=== PATIENT | male | born 1935 | race Caucasian/White ===

== ENCOUNTER 2023-11-10 07:04 | Inpatient (IN) | payer MEDICARE, SELFPAY ==
[2023-11-10] VITALS (18 sets, daily range): BP systolic 92–126; BP diastolic 54–65; PULSE 83–118; RESP 14–22; TEMP 36.1–37.1; O2SAT 93–100
--- NOTE | ~2023-11-10 | XR_ITS ---
XR abdomen obstructive series DATE: 11/18/2023 08:04 INDICATION: Ileus TECHNIQUE: Portable supine AP and upright views 11/18/2023 at [id number] hours COMPARISON: November 17, 2023 obstructive series FINDINGS: Prominent gaseous distention of the small bowel and colon is again noted, which may be due to ileus or distal colonic obstruction less likely. No visceromegaly is evident. Multiple prostate calcifications. IMPRESSION: Prominent gaseous distention of small and large bowel which may be due to ileus or obstru ction; no improvement since 11/17/2023 Reviewed, dictated and finalized at [facility]. Reviewed, dictated and finalized at location A. IMPRESSION: Prominent gaseous distention of small and large bowel which may be due to ileus or obstruction; no improvement since 11/17/2023
--- NOTE | ~2023-11-10 | XR_ITS ---
EXAMINATION: XR chest 1V portable DATE: 11/11/2023 19:07 INDICATION: Shortness of breath. TECHNIQUE: A single frontal view of the chest was obtained. COMPARISON: Chest single view 11/10/23 FINDINGS: There are mild airspace opacities in the mid and lower lung zones. No pleural effusion or p neumothorax. The heart size is normal. There are surgical clips in right axilla. IMPRESSION: 1. Mild airspace opacities in the mid and lower lung zones, likely mild pulmonary edema. Reviewed, dictated and finalized at location E. IMPRESSION: 1. Mild airspace opacities in the mid and lower lung zones, likely mild pulmona ry edema.
--- NOTE | ~2023-11-10 | XR_ITS ---
EXAMINATION: XR chest 1V portable 11/10/2023 07:54 INDICATION: Altered mental status. Fever. PROCEDURE: AP portable chest COMPARISON: No prior studies for comparison. FINDINGS: The lungs are clear. The cardiomediastinal silhouette is within normal limits. There are no pleural effusions. There is no pneumothorax suspected. IMPRESSION: 1: NO ACUTE CARDIOPULMONARY DISEASE. Reviewed, dictated and finalized at location A.
--- NOTE | ~2023-11-10 | US_ITS ---
US scrotum doppler INDICATION: Wound. TECHNIQUE: Testicular sonogram utilizing grayscale and color Doppler FINDINGS: The testes are normal in size and appearance. No focal lesions are seen. The right testes measures 4.4 x 3.4 x 1.6 cm centimeters, and the left testis measures 4.2 x 2.7 x 2.4 cm cm. There is normal vascular flow to both testes. The right epididymis is not visualized. Left epididymis is unremarkable. There is a moderate size complicated right hydrocele with internal debris. There is a small left hydr ocele. IMPRESSION: 1. Moderate sized uncomplicated right hydrocele with debris. Superimposed infection cannot be exclud ed. Clinically correlate. 2: Small left hydrocele. Reviewed, dictated and finalized at location B. IMPRESSION: 1. Moderate sized uncomplicated right hydrocele with debris. Superimposed infe ction cannot be excluded. Clinically correlate. 2: Small left hydrocele.
--- NOTE | ~2023-11-10 | XR_ITS ---
XR chest 2V 11/15/2023 09:54 Indication: Hypoxia Procedure: 2 view chest Comparison: 11/11/2023 Findings: Heart size normal. Bibasilar airspace disease. Small pleural effusions. No pneumothorax. No edema. Moderate distention of visualized small bowel, nonspecific. There are surgical clips in the r ight axilla. Impression: 1: Bibasilar airspace disease may represent atelectasis or pneumonia. 2: Small pleural effusions. Reviewed, dictated and finalized at location B. Impression: 1: Bibasilar airspace disease may represent atelectasis or pneumonia. 2: Small pleural effusions.
--- NOTE | ~2023-11-10 | US_ITS ---
EXAMINATION: US scrotum doppler DATE: 11/11/2023 14:00 INDICATION: Scrotal abscess with drainage. TECHNIQUE: Grayscale and Doppler ultrasound images of the testes were obtained. COMPARISON: CT abdomen pelvis/ FINDINGS: The right testis is not well visualized. The left testis measures 4.0 x 1.8 x 2.3 cm. There is increased vascular flow in left testis. The right epididymis is not visualized. The left epididym is is not visualized. There is a small left hydrocele. In the right scrotum, there is a hypoechoic ma ss measuring 5.9 cm. Scrotal skin thickening is noted. IMPRESSION: 1. 5.9 cm hypoechoic mass in right scrotum, which may be an abscess or hematoma. 2. Right testis not well visualized. 3. Left-sided orchitis. 4. Epididymides not well visualized. Reviewed, dictated and finalized at location E. IMPRESSION: 1. 5.9 cm hypoechoic mass in right scrotum, which may be an abscess or hematom a. 2. Right testis not well visualized. 3. Left-sided orchitis. 4. Epididymides not well visualized.
--- NOTE | ~2023-11-10 | CT_ITS ---
EXAMINATION: CT abdomen pelvis w con DATE: 11/10/2023 08:50 INDICATION: Fever. Sepsis. TECHNIQUE: Computed tomography (CT) of the abdomen and pelvis was performed with 100 cc Omnipaque 350 intravenous contrast. The dose-length product was 849.40 mGy-cm. Automated exposure control and iter ative reconstruction technique were employed. COMPARISON: None. FINDINGS: There is dependent atelectasis of the lung bases. Small pericardial effusion. No significan t pleural effusion. Mild atherosclerosis. No aneurysm. No lymphadenopathy. Enlarged heterogeneous pro state gland containing coarse calcifications. Diffuse bladder wall thickening. There are coarse calcifications of the liver. There is a hypervascular lesion of the right hepatic lo be measuring 3.1 x 2.3 cm. Gallbladder is present. The spleen, pancreas, adrenal glands are unremarka ble. There are small low-density lesions of the kidneys, most likely benign. Moderate osteoarthritis of the hips moderate lumbar spondylosis. There is partial ankylosis of the sacroiliac joints. IMPRESSION: 1. Diffusely enlarged heterogeneous prostate gland. Cannot exclude underlying malignancy. Recommend c orrelation with PSA levels. 2: Thickened bladder wall which may be due to outlet obstruction and/or cystitis. 3: Hypervascular lesion of the right hepatic lobe measuring 3.1 cm. Differential diagnosis includes b enign etiologies such as hemangioma as well as primary and metastatic malignancy. 3: Small pericardial effusion. Reviewed, dictated and finalized at location A. IMPRESSION: 1. Diffusely enlarged heterogeneous prostate gland. Cannot exclude underlying m alignancy. Recommend correlation with PSA levels. 2: Thickened bladder wall which may be due to outlet obstruction and/or cystiti s. 3: Hypervascular lesion of the right hepatic lobe measuring 3.1 cm. Differentia l diagnosis includes benign etiologies such as hemangioma as well as primary an d metastatic malignancy. 3: Small pericardial effusion.
--- NOTE | ~2023-11-10 | XR_ITS ---
EXAM: XR abdomen obstructive series DATE: 11/17/2023 09:05 HISTORY: ileus . COMPARISON: 11/16/2023. FINDINGS: Minimal bibasilar atelectasis/scar. Mild bilateral costophrenic blunting. Unchanged diffus yaa dilated small and large bowel. Organ shadows are largely obscured. Prostatic calcification and pe lvic phleboliths. Degenerative changes in the spine and bilateral hips IMPRESSION: Stable findings of dilated small and large bowel may represent ileus. Obstruction is not excluded. Reviewed, dictated and finalized at location K. IMPRESSION: Stable findings of dilated small and large bowel may represent ileu s. Obstruction is not excluded.
--- NOTE | ~2023-11-10 | XR_ITS ---
EXAMINATION: XR abdomen obstructive series DATE: 11/16/2023 12:44 INDICATION: Abdominal distention. TECHNIQUE: Upright and supine views of the abdomen on 3 radiographs were obtained. COMPARISON: CT abdomen and pelvis 11/10/2023 FINDINGS: There is gaseous distention of the small and large bowel. No free intraperitoneal gas. IMPRESSION: 1. Gaseous distention of the small and large bowel, consistent with adynamic ileus. Reviewed, dictated and finalized at location A. IMPRESSION: 1. Gaseous distention of the small and large bowel, consistent with adynamic il eus.
--- NOTE | 2023-11-10 07:11 | ECG_ITS ---
SEE SCANNED COPY FOR CONFIRMED REPORT MTDD
--- NOTE | 2023-11-10 07:14 | ED.AMS ---
HPI - Altered Mental Status General Chief Complaint: Weakness Stated Complaint: weak/confused History of Present Illness HPI narrative: Patient presents here with 1 week of worsening generalized weakness, malaise, fevers, today was unable to get up, and initially seemed quite confused, so was brought in here. He does report maybe a slight cough, otherwise and denies any pain anywhere including abdomen, chest, head, no dysuria. No focal numbness or weakness. Related Data Home Medications Medication Instructions Recorded Confirmed empagliflozin 10 mg tablet mg DAILY 11/10/23 (Jardiance) lisinopril 10 1 tablet PO DAILY 11/10/23 11/10/23 mg-hydrochlorothiazide 12.5 mg tablet metformin 1,000 mg tablet 1,000 mg PO DAILY 11/10/23 11/10/23 naproxen sodium 375 mg mg PO BID 11/10/23 tablet,extended release Allergies Allergy/AdvReac Type Severity Reaction Status Date / Time gabapentin Allergy Numbness Verified 11/10/23 07:46 Review of Systems Review of Systems: All systems reviewed & are unremarkable except as noted in HPI and below Exam Narrative: EXAMINATION OF ORGAN SYSTEMS/BODY AREAS: Constitutional: Vital signs per nursing GENERAL:[No acute distress, non-toxic appearing.] HEAD: Normal with no signs of head trauma. EYES: EOMI, conjunctiva normal ENT: Hearing grossly intact LUNGS: Nonlabored breathing. HEART: Tachycardiac ABD: [Soft], [nontender to palpation] EXT: Normal range of motion SKIN: Small pinpoint lesion to scrotum with some thickened skin over scrotum, no tenderness, some serosanguineous discharge NEURO: [Alert and oriented x 3. No gross focal sensory or strength deficits. Normal/equal strength bilateral upper lower extremities] PSYCH: Normal affect Course Vital Signs Vital signs: Vital Signs Pulse Rate 118 H 11/10/23 07:16 Respiratory Rate 11/10/23 07:16 Blood Pressure 124/63 11/10/23 07:16 Pulse Oximetry 93 11/10/23 07:16 Temperature 98.6 F 11/10/23 07:21 Pulse Rate 114 H 11/10/23 07:21 Respiratory Rate 20 11/10/23 07:21 Blood Pressure 113/59 L 11/10/23 07:21 Pulse Oximetry 96 11/10/23 07:21 Oxygen Delivery Room Air 11/10/23 07:21 MDM - Altered Mental Status MDM Narrative Medical decision making narrative: Patient presenting here with generalized weakness, possible fevers, concern for infection. He is denying any complaints other than a mild cough. On exam he is but overall well-appearing albeit does appear tired, no focal neurologic deficits, no abdominal tenderness, some mild crackles worse to right lung, there is a small pinpoint lesion with some thickened skin and surrounding to scrotum which patient states has been ongoing for years, he had several months ago squeezed a boil there and since and did drain some fluid but not painful. Broad workup initiated, I suspect possible infection, very unlikely CVA with no focal lateralizing deficits. CT abdomen/pelvis showing cystitis, labs consistent with UTI with sepsis, elevated lactic, delete BC, CRP. Patient started on ceftriaxone, no prior cultures here. Patient states he is feeling better after some fluids, BP vital signs much improved, plan for patient to be admitted at this time, case discussed with the patient and family bedside who are agreeable to this plan, discussed with hospitalist who accepts. Lab Data 11/10/23 07:23 11/10/23 07:23 Labs: Lab Results 11/10/23 11/10/23 Range/Units 07:23 09:22 WBC 13.4 H (4.5-10.0) K/mm3 RBC 4.29 L (4.6-6.20) M/mm3 Hgb 11.7 L (14.0-18.0) g/dL Hct 37.0 L (42.0-52.0) % MCV 86.2 (80-100) fl MCH 27.3 (26-34) pg MCHC 31.6 L (32-36) g/dl RDW 15.3 H (11.5-14.5) % Plt Count 257 (150-375) k/mm3 MPV 11.8 H (7.4-10.4) fl Immature Gran % (Auto) 1.0 H (0-0.5) % Neut % (Auto) 92.8 H (45.5-73.1) % Lymph % (Auto) 2.3 L (18.3-44.2) % [place] % (Auto) 3.1 (2.6-8.
[2023-11-10 07:53] LABS: Basophils Absolute Auto 0.1 K/mm3 (0.0-0.1); Basophils Percent Auto 0.7 % (0.2-1.2); Eosinophils Percent Auto 0.1 % (0-4.4); Hemoglobin 11.7 g/dL (14.0-18.0); Immature Granulocyte Absolute 0.13 K/mm3 (0.00-0.031); Lymphocytes Absolute Auto 0.31 K/mm3 (0.9-3.2); Lymphocytes Percent Auto 2.3 % (18.3-44.2); Mean Corpuscular HGB Conc 31.6 g/dl (32-36); Mean Corpuscular Hemoglobin 27.3 pg (26-34); Mean Corpuscular Volume 86.2 fl (80-100); Mean Platelet Volume 11.8 fl (7.4-10.4); Monocytes Absolute Auto 0.4 K/mm3 (0.1-0.6); Monocytes Percent Auto 3.1 % (2.6-8.5); Neutrophils Absolute Auto 12.5 K/mm3 (1.3-6.7); Neutrophils Percent Auto 92.8 % (45.5-73.1); Platelet Count Result 257 k/mm3 (150-375); Red Blood Count 4.29 M/mm3 (4.6-6.20); Red Cell Distribution Width 15.3 % (11.5-14.5); White Blood Count 13.4 K/mm3 (4.5-10.0)
[2023-11-10 08:06] LABS: INR 1.2
[2023-11-10 08:07] LABS: Lactic Acid Reflex 6.6 mmol/L (0.7-2.0)
[2023-11-10 08:10] LABS: Alanine Aminotransferase 36 U/L (6-50); Albumin Level 3.5 g/dL (3.5-5.1); Alkaline Phosphatase 178 U/L (38-126); Anion Gap 15 mmol/L (4-12); Aspartate Amino Transferase 62 U/L (17-59); Bilirubin,Total 1.1 mg/dL (0.2-1.3); Blood Urea Nitrogen 31 mg/dL (9-20); Carbon Dioxide 15 mmol/L (22-30); Chloride 102 mmol/L (98-107); Estimated CRCL calculation 39 ml/min; Estimated Glomerular Filt Rate 57; Glucose 282 mg/dL (65-110); Potassium 3.8 mmol/L (3.4-5.0); Sodium 132 mmol/L (137-145)
[2023-11-10 08:13] LABS: Appearance Urine Cloudy (Clear); Bacteria Urine 2+ /hpf; Bilirubin Urine Negative (Negative); Blood Urine 3+ (Negative); Color Urine Yellow (Yellow); Glucose Urine UA 3+ mg/dL (Negative); Ketones Urine 1+ mg/dL (Negative); Leukocyte Esterase Ur 1+ LEU/UL (Negative); Need Manual Microscopic Reviewed; Nitrate Urine Negative (Negative); Protein Urine 2+ mg/dL (Negative); RBC Urine >100 /hpf (0-2); Specific Grav Ur 1.027 (1.001-1.035); Squamous Epithelial Cell Urine None Seen /hpf (Few); WBC Urine >100 /hpf (0-3); pH Urine 6.5 (5.0-9.0)
[2023-11-10 08:19] LABS: Add Urine Microscopic? YES
[2023-11-10 08:22] LABS: CRP 25.3 mg/dL (<1.0)
[2023-11-10] MEDS: LACTATED RINGERS 1,000 ML 999 ML IV CONT (08:28)
[2023-11-10 09:37] LABS: Lactic Acid Reflex 3.8 mmol/L (0.7-2.0)
[2023-11-10] MEDS: LACTATED RINGERS 500 ML IV CONT ×2 (09:37→12:21)
[2023-11-10] MEDS: VANCOMYCIN 1,500 MG/NS 500 ML 1,500 MG/500 ML BAG 333 MG IVPB (09:38)
[2023-11-10 10:50] LABS: Reflex Lactic Acid Yes or No Add Lactic
[2023-11-10] MEDS: LACTATED RINGERS 1,000 ML 125 ML IV CONT ×3 (10:52→23:32)
--- NOTE | 2023-11-10 11:45 | PM.IMHP ---
H&P: HPI History of Present Illness Date/Time: 11/10/23 11:45 Chief Complaint: Confusion weakness fever Narrative: Patient presents here with 1 week of worsening generalized weakness, malaise, fevers, today was unable to get up, and initially seemed quite confused, so was brought in here.? He does report maybe a slight cough, otherwise and denies any pain anywhere including abdomen, chest, head, no dysuria.? No focal numbness or weakness. Review of Systems Review of Systems: - CONSTITUTIONAL: Denies weight loss, fever and chills. - HEENT: Denies changes in vision and hearing - RESPIRATORY: Denies SOB and cough. - CV: Denies palpitations and CP. - GI: Denies abdominal pain, nausea, vomiting and diarrhea. - : Denies dysuria and urinary frequency. - MSK: Denies myalgia and joint pain. - SKIN: Denies rash and pruritus. - NEUROLOGICAL: Denies headache and syncope. - PSYCHIATRIC: Denies recent changes in mood. Denies anxiety and depression. [facility] Family History Family History (Updated 11/10/23 @ 12:20 by Theo Pratt RN) Father Prostate carcinoma Sibling Diabetes mellitus Social History Social History Smoking status: Former smoker Tobacco type: cigarettes Second hand tobacco smoke exposure: No Additional smoking assessment comments: Pt smoked when he was 16 years old off and on Meds Home Medications and Allergies Home Medications Medication Instructions Recorded Confirmed Type empagliflozin 10 mg tablet mg DAILY 11/10/23 History (Jardiance) lisinopril 10 1 tablet PO DAILY 11/10/23 11/10/23 History mg-hydrochlorothiazide 12.5 mg tablet metformin 1,000 mg tablet 1,000 mg PO DAILY 11/10/23 11/10/23 History naproxen sodium 375 mg mg PO BID 11/10/23 History tablet,extended release Allergies Allergy/AdvReac Type Severity Reaction Status Date / Time gabapentin Allergy Numbness Verified 11/10/23 07:46 Vital Signs Vital Signs - 24 hr 11/10/23 07:21 11/10/23 07:16 11/10/23 07:17 Temperature 98.6 F 98.4 F Pulse Rate 114 H 118 H 105 H Respiratory Rate 20 20 22 H Blood Pressure 113/59 L 124/63 98/55 L Pulse Oximetry 96 93 94 Oxygen Delivery Room Air 11/10/23 08:00 04/20/24 09:00 11/10/23 10:00 Temperature 98.0 F 97.9 F 97.6 F Pulse Rate 109 H 105 H 101 H Respiratory Rate 16 14 14 Blood Pressure 102/56 L 98/55 L 105/62 Pulse Oximetry 94 100 100 Oxygen Delivery Exam Narrative: GENERAL: The patient is well developed, not in acute distress HEENT: Nonicteric sclerae, PERRLA, EOMI. Oropharynx clear. Moist mucous membranes. Conjunctivae appear well perfused. CHEST: Chest wall is nontender. HEART: Regular rate and rhythm without murmur, rubs, or gallops LUNGS: Clear to auscultation bilaterally. no respiratory distress ABDOMEN: Soft, positive bowel sounds, non-tender, no organomegaly. SKIN: No rash, no excessive bruising, petechiae, or purpura. NEUROLOGIC: Cranial nerves II-XII intact, alert and oriented x 3, no gross motor deficits EXTREMITIES: no edema, cyanosis or clubbing H&P: Results Labs Labs: Short CBC 11/10/23 Range/Units 07:23 WBC 13.4 H (4.5-10.0) K/mm3 Hgb 11.7 L (14.0-18.0) g/dL Hct 37.0 L (42.0-52.0) % Plt Count 257 (150-375) k/mm3 BMP 11/10/23 07:23 Sodium 132 L Potassium 3.8 Chloride 102 Carbon Dioxide 15 L BUN 31 H Creatinine 1.20 Glucose 282 H Calcium 9.0 Liver Function 11/10/23 Range/Units 07:23 Total Bilirubin 1.1 (0.2-1.3) mg/dL AST 62 H (17-59) U/L ALT 36 (6-50) U/L Alkaline Phosphatase 178 H (38-126) U/L Albumin 3.5 (3.5-5.1) g/dL Urine 11/10/23 Range/Units 07:23 Urine Color Yellow (Yellow) Urine Appearance Cloudy H (Clear) Urine pH 6.5 (5.0-9.0) Ur Specific [place] 1.027 (1.001-1.035) Urine Protein 2+ H (Negative) mg/dL Urine Glucose (UA) 3+ H (Negative) mg/dL Assessment and Plan Assessment and
[2023-11-10 12:12] LABS: Glucose Point of Care 266 mg/dl (65-105)
--- NOTE | 2023-11-10 12:12 | ADMGEN ---
This patient, Sadiq Bennett, was admitted to IMU Room 205-01. Patient/family oriented to hospital policies and general routines including ID bracelet, bed and alarms, visiting hours, pain management, procedures, bathroom and other care routines, personal items, smoking policy, room service/diet, and visiting hours. Information on how to activate the Rapid Response Team has been discussed. Patient/Family are encouraged to report perceived risks to care and to ask questions if they do not understand what they are told or what they should do.
[2023-11-10 12:57] LABS: Lactic Acid 2.5 mmol/L (0.7-2.0)
--- NOTE | 2023-11-10 13:04 | PC.NURSE ---
Dr. Bright given report that the pt is reporting he is a diabetic. Blood glucose obtained at the bedside et the pt was 266mg/dL. Denies manifestations of distress. T.O.R.B. Dr. Bright/ Selene RN 1. Diabetic diet. Per Dr. Bright will review the chart et make any further changes needed.
[2023-11-10 14:38] LABS: Hemoglobin A1C 8.4 % (<5.7)
[2023-11-10 16:11] LABS: Glucose Point of Care 268 mg/dl (65-105)
[2023-11-10] MEDS: INSULIN ASPART (*BKC) 100 UNITS/ML SUB-Q (16:44)
--- NOTE | 2023-11-10 18:28 | PC.NURSE ---
Dr. Patton has been given report on the pt fever of 100.1. No PRN intervention for fever if needed. T.O.R.B. Dr. Patton / This RN 1.) Acetaminophen 650mg PO Q6 PRN fever mild pain.
[2023-11-10 20:14] LABS: Glucose Point of Care 247 mg/dl (65-105)
[2023-11-11] VITALS (19 sets, daily range): BP systolic 117–134; BP diastolic 54–74; PULSE 72–109; RESP 12–28; TEMP 36.3–36.9; O2SAT 88–98
[2023-11-11 04:50] LABS: Basophils Percent Auto 0.3 % (0.2-1.2); Eosinophils Percent Auto 0.2 % (0-4.4); Hematocrit 32.3 % (42.0-52.0); Hemoglobin 10.2 g/dL (14.0-18.0); Immature Granulocyte Absolute 0.09 K/mm3 (0.00-0.031); Immature Granulocyte Percent A 0.7 % (0-0.5); Lymphocytes Percent Auto 5.9 % (18.3-44.2); Mean Corpuscular HGB Conc 31.6 g/dl (32-36); Mean Corpuscular Volume 85.4 fl (80-100); Monocytes Percent Auto 7.3 % (2.6-8.5); Neutrophils Absolute Auto 11.6 K/mm3 (1.3-6.7); Neutrophils Percent Auto 85.6 % (45.5-73.1); Platelet Count Result 254 k/mm3 (150-375); Red Blood Count 3.78 M/mm3 (4.6-6.20); Red Cell Distribution Width 14.8 % (11.5-14.5); White Blood Count 13.6 K/mm3 (4.5-10.0)
[2023-11-11 05:00] LABS: Alanine Aminotransferase 32 U/L (6-50); Albumin Level 2.8 g/dL (3.5-5.1); Alkaline Phosphatase 132 U/L (38-126); Anion Gap 6 mmol/L (4-12); Aspartate Amino Transferase 47 U/L (17-59); Bilirubin,Total 0.9 mg/dL (0.2-1.3); Blood Urea Nitrogen 25 mg/dL (9-20); Calcium 8.3 mg/dL (8.4-10.2); Carbon Dioxide 24 mmol/L (22-30); Chloride 104 mmol/L (98-107); Estimated CRCL calculation 47 ml/min; Estimated Glomerular Filt Rate > 60; Glucose 219 mg/dL (65-110); Magnesium 2.1 mg/dL (1.6-2.3); Potassium 3.7 mmol/L (3.4-5.0); Sodium 134 mmol/L (137-145)
[2023-11-11 07:32] LABS: Glucose Point of Care 212 mg/dl (65-105)
[2023-11-11] MEDS: LACTATED RINGERS 1,000 ML 125 ML IV CONT (09:05)
[2023-11-11] MEDS: INSULIN ASPART (*BKC) 100 UNITS/ML SUB-Q ×3 (09:07→17:32)
[2023-11-11] MEDS: ENOXAPARIN 40 MG/0.4 ML SYRINGE SUB-Q (09:08)
[2023-11-11] MEDS: VANCOMYCIN 1,250 MG/NS 250 ML 1,250 MG/250 ML BAG 166.67 MG IVPB (09:48)
--- NOTE | 2023-11-11 10:15 | PM.IMPN ---
Progress Note: A&P Assessment and Plan (1) Sepsis: Code(s): A41.9 - Sepsis, unspecified organism Status: Acute (2) Acute UTI: Code(s): N39.0 - Urinary tract infection, site not specified Status: Acute Plan This is an 88-year-old male who presented to the ED with generalized weakness possible fever concern for infection and altered mental status. He also reported some mild cough. On ED arrival he was tachycardic blood pressure optimal no hypoxia overall with no focal neurological deficit. Right lung examination with mild crackles. Pinpoint lesion on thickened skin around his scrotum which has been ongoing for several years. This Has been draining for some time. Wound culture obtained from this area. He laboratory evaluation revealed leukocytosis 13.4 hemoglobin 11.7 metabolic acidosis with bicarb 15 blood sugar of 282 lactic acid was elevated at 6.6 CRP 25.3 LFTs mildly elevated. Chest x-ray with no acute cardiopulmonary disease. Urinalysis was suggestive of UTI with more than 100 RBC and more than 100 WBC. EKG showed sinus tachycardia with multiple PVC. No acute ST-T changes noted. Presentation suggestive of sepsis most likely with UTI IV fluid resuscitation received in the ER will continue with IV fluids lactic acid continues to improve. Blood culture has been obtained stent positive for Gram-negative bacilli. Will repeat blood culture in a.m. Urine culture has been sent. Continue with vancomycin and ceftriaxone. 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 bp improved. on 2l oxygen. more awake and coherent. blood culture positive now. no fever, chills. Review of Systems Review of Systems: All systems reviewed & are unremarkable except as noted in HPI and below Exam Narrative: GENERAL: The patient is well developed, not in acute distress HEENT: Nonicteric sclerae, PERRLA, EOMI. Oropharynx clear. Moist mucous membranes. Conjunctivae appear well perfused. CHEST: Chest wall is nontender. HEART: Regular rate and rhythm without murmur, rubs, or gallops LUNGS: Clear to auscultation bilaterally. no respiratory distress ABDOMEN: Soft, positive bowel sounds, non-tender, no organomegaly. SKIN: No rash, no excessive bruising, petechiae, or purpura. NEUROLOGIC: Cranial nerves II-XII intact, alert and oriented x 3, no gross motor deficits EXTREMITIES: no edema, cyanosis or clubbing Objective Data Vital Signs Vital Signs: Vital Signs - 24 hr 11/10/23 12:34 11/10/23 12:00 11/10/23 14:00 Temperature 97 F L Pulse Rate 87 89 88 Respiratory Rate 18 Blood Pressure 92/54 L Pulse Oximetry 96 Oxygen Delivery Oxygen Flow Rate 11/10/23 12:00 11/10/23 16:00 11/10/23 18:42 Temperature 97.3 F L 98.1 F Pulse Rate 83 Respiratory Rate 16 Blood Pressure 108/61 Pulse Oximetry 96 Oxygen Delivery Room Air Oxygen Flow Rate 11/10/23 16:00 11/10/23 16:00 11/10/23 18:00 Temperature Pulse Rate 84 89 Respiratory Rate Blood Pressure Pulse Oximetry Oxygen Delivery Room Air Oxygen Flow Rate 11/10/23 19:55 11/10/23 20:00 11/10/23 20:25 Temperature 98.7 F Pulse Rate 100 100 Respiratory Rate 20 Blood Pressure 126/65 Pulse Oximetry 96 96 Oxygen Delivery Nasal Cannula Oxygen Flow Rate 2 11/10/23 22:00 11/10/23 23:43 11/11/23 00:00 Temperature 98.0 F Pulse Rate 96 100 Respiratory Rate 20 Blood Pressure 119/54 L Pulse Oximetry 98 98 Oxygen Delivery Room Air Oxygen Flow Rate 11/11/23 00:00 11/11/23 02:00 11/10/23 21:54 Temperature Pulse Rate 94 94 Respiratory Rate Blood Pressure Pulse Oximetry 98 Oxygen [employer]
--- NOTE | 2023-11-11 11:40 | PCCCNOTE ---
On 11/11/23, the student, Mamie Garces, provided care and completed [facility] documentation on this patient. I have reviewed the student's documentation and agree with the findings.
[2023-11-11 14:29] LABS: Glucose Point of Care 237 mg/dl (65-105)
[2023-11-11 16:44] LABS: Glucose Point of Care 233 mg/dl (65-105)
[2023-11-11 18:35] LABS: Glucose Point of Care 254 mg/dl (65-105)
--- NOTE | 2023-11-11 19:00 | WPDURCON ---
Assessment and Plan Assessment and plan (1) Sepsis: Code(s): A41.9 - Sepsis, unspecified organism Status: Acute (2) Acute UTI: Code(s): N39.0 - Urinary tract infection, site not specified Status: Acute Assessment and Plan: agree with emperric broad spectrum abx no signs of fourniers gangrene on exam his abscess is open and spontaneously draining scant fluid. NPO at midnight. serial scrotal exams if scrotum worsens may benefit form scrotal exploration and formal drainage, but this point would just continue present care. I suspect he has a chronic hydrocele n the right , ( he states this has been present for 1 year) although he may have infection involving it at the moment (3) Hydrocele in adult: Code(s): N43.3 - Hydrocele, unspecified Status: Acute Urology Consult Note HPI Date Seen: 11/11/23 Requesting Physician: Robert Bright MD Primary Care Provider: PHYSICIAN NOT ON STAFF Consult Narrative Narrative: Sadiq Bennett is a 88 year old male admitted for UTI and bactermia. Patient is a known diabetic. He states he has had scrotal swelling x 1 year since he started gabapentin. He noticed a pimple on his scrotum 3 days ago and he states he popped it himself. he has had scant purulent drainage ever since. He states he has a history of gross hematuria intermitently x 1 year. He states his urine is clear now. he can not recall ever seeing a urologist. He is using a purewick device right now. unclear if he has a family hx of prostate malignancy or stone disease. He is currently eating dinner Review of Systems Review of Systems: All systems reviewed & are unremarkable except as noted in HPI and below Constitutional: Constitutional: Reports as per HPI, Reports no additional constitutional complaints, Denies difficulty sleeping and Denies excessive sweating Eyes: Eyes: Reports as per HPI and Reports no additional eye complaints ENT: Reports system reviewed and no additional complaints, except as documented and Reports Normal hearing present Cardiovascular: Cardiovascular: Reports no additional cardiovascular complaints Respiratory: Respiratory: Reports no additional respiratory complaints Gastrointestinal: Gastrointestinal: Reports as per HPI and Reports no additional gastrointestinal complaints Genitourinary: Genitourinary: Reports no additional male genitourinary complaints and Reports as per HPI Musculoskeletal: Musculoskeletal: Reports no additional musculoskeletal complaints Integumentary/Breasts: Skin/Breast: Reports system reviewed and no additional complaints, except as docu Neurologic: Reports system reviewed and no additional complaints, except as documented Psychiatric: Psychiatric: Reports no additional psychiatric complaints Endocrine: Endocrine: Reports no additional endocrine complaints Hematologic/Lymphatic: Hematologic/Lymphatic: Reports no additional hematologic/lymphatic complaints PMFSH Family History Family History (Updated 11/10/23 @ 12:20 by Theo Pratt RN) Father Prostate carcinoma Sibling Diabetes mellitus Social History Social History Smoking status: Former smoker Tobacco type: cigarettes Second hand tobacco smoke exposure: No Additional smoking assessment comments: Pt smoked when he was 16 years old off and on Alcohol intake: never Substance use: never Substance use type: does not use Do You Feel Safe in your Home?: Yes Lack of Transportation: No Lack of Food: Never True Current Housing: I Have Housing Concerned About Future Housing: No Difficulty Paying Gas/Electric Bills: No Difficulty Paying for Meds: No Currently Unemployed: No Education: Don't Know Difficulty w/ Childcare or Family Care: No Spiritual care concerns: No Meds Home Medications and Allergies Home Medications Medication Instructions Recorded Confirmed Type empagliflozin 10 mg tablet 10 mg
--- NOTE | 2023-11-11 19:04 | PC.NURSE ---
Dr. Bright has been given report that has O2 N/C 3L SPO2 88%. New interventions per Dr. Bright SPO2 96% O2 3L, LCTA et remains unchanged
[2023-11-11 19:39] LABS: Glucose Point of Care 256 mg/dl (65-105)
[2023-11-11] MEDS: IPRATROPIUM 0.5 MG/ALBUTEROL SULFATE 2.5 MG AMPUL.NEB 3 ML INHALATION (19:53)
[2023-11-11] MEDS: FUROSEMIDE INJ 40 MG/4 ML VIAL IV PUSH (21:01)
[2023-11-12] VITALS (27 sets, daily range): BP systolic 115–148; BP diastolic 63–82; PULSE 77–97; RESP 18–24; TEMP 36.2–36.9; O2SAT 92–97; BMI 26.4
[2023-11-12] MEDS: IPRATROPIUM 0.5 MG/ALBUTEROL SULFATE 2.5 MG AMPUL.NEB 3 ML INHALATION ×4 (01:15→20:02)
--- NOTE | 2023-11-12 07:32 | WPDUROPN2 ---
Progress Note: A&P Assessment and Plan (1) Hydrocele in adult: Code(s): N43.3 - Hydrocele, unspecified Status: Acute Plan Chronic right hydrocele. Possible subclinical infection. No overlying skin erythema. Does not have an acute scrotum. Unclear if surgical intervention would improve things or make it worse. No intervention planned currently. Will reassess. Continue antibiotics Subjective Subjective Date/Time Seen: 11/12/23 07:32 Interval history: No fever. No complaints today. I reviewed the report of his CT scan and ultrasound. He appears to have a chronic right hydrocele which may have a subclinical infection. Urine cultures negative. Blood culture is positive for Gram-negative rods. Scrotum is not erythematous and has a open and draining component Exam Narrative: Scrotum not erythematous. Right hemiscrotum is firm. On the midline raphe there is an open area which is draining a scant amount of purulent fluid. Objective Data Vital Signs Vital Signs: Vital Signs - 24 hr 11/11/23 08:00 11/11/23 08:05 11/11/23 08:00 Temperature 98.4 F Pulse Rate 82 81 Respiratory Rate 12 Blood Pressure 125/66 Pulse Oximetry 91 90 Oxygen Delivery Nasal Cannula Oxygen Flow Rate 3 11/11/23 10:00 11/11/23 12:00 11/11/23 12:00 Temperature 97.3 F L Pulse Rate 79 72 80 Respiratory Rate 20 Blood Pressure 117/54 L Pulse Oximetry 94 Oxygen Delivery Oxygen Flow Rate 11/11/23 08:00 11/11/23 12:00 11/11/23 16:00 Temperature Pulse Rate Respiratory Rate Blood Pressure Pulse Oximetry 93 94 94 Oxygen Delivery Nasal Cannula Nasal Cannula Nasal Cannula Oxygen Flow Rate 3 3 3 11/11/23 14:00 11/11/23 16:00 11/11/23 16:00 Temperature 97.4 F L Pulse Rate 80 80 83 Respiratory Rate 28 H Blood Pressure 134/74 Pulse Oximetry 92 Oxygen Delivery Oxygen Flow Rate 11/11/23 18:00 11/11/23 19:56 11/11/23 19:59 Temperature Pulse Rate 84 86 Respiratory Rate 19 Blood Pressure Pulse Oximetry 91 Oxygen Delivery Nasal Cannula Oxygen Flow Rate 3 11/11/23 19:54 11/11/23 20:04 11/11/23 20:00 Temperature 97.6 F Pulse Rate 109 H 85 83 Respiratory Rate 20 19 Blood Pressure 123/62 Pulse Oximetry 94 Oxygen Delivery Oxygen Flow Rate 11/11/23 20:00 11/11/23 22:00 11/11/23 23:21 Temperature 97.6 F Pulse Rate 83 81 Respiratory Rate 20 Blood Pressure 126/60 Pulse Oximetry 88 L 94 Oxygen Delivery Nasal Cannula Oxygen Flow Rate 3 11/12/23 01:15 11/12/23 01:29 11/12/23 00:00 Temperature Pulse Rate 86 93 84 Respiratory Rate 19 19 Blood Pressure Pulse Oximetry Oxygen Delivery Oxygen Flow Rate 11/12/23 00:00 11/12/23 02:00 11/12/23 04:00 Temperature Pulse Rate 85 Respiratory Rate Blood Pressure Pulse Oximetry 93 92 Oxygen Delivery Nasal Cannula Nasal Cannula Oxygen Flow Rate 4 4 11/12/23 04:00 11/12/23 04:15 11/12/23 06:00 Temperature 98.4 F Pulse Rate 97 79 86 Respiratory Rate 24 H Blood Pressure 133/82 Pulse Oximetry 96 Oxygen Delivery Oxygen Flow Rate 11/12/23 07:10 11/12/23 07:19 11/12/23 07:28 Temperature Pulse Rate 87 92 Respiratory Rate 20 20 Blood Pressure Pulse Oximetry 93 Oxygen Delivery Nasal Cannula Oxygen Flow Rate 3 Intake/Output Intake/Output: Intake & Output 11/09/23 11/10/23 11/11/23 11/12/23 23:59 23:59 23:59 23:59 Intake Total 3983.3 2320 200 Output Total 1500 850 700 Balance 2483.3 1470 -500 Meds/Results Medications: Active Medications Generic Name Dose Route Start Last Admin Trade Name Clinton PRN Reason Stop Dose Admin Acetaminophen 650 mg 11/10/23 18:27 Acetaminophen 325 Mg Tablet PO Q6H PRN Mild Pain (1-3) or Fever Albuterol/Ipratropium 3 ml 11/11/23 20:00 11/12/23 07:18 Ipratropium 0.5 Mg/Albuterol Sulfate 2.5 Mg Ampul.Neb 3 Ml INHALATION 3 ml
[2023-11-12 08:22] LABS: Alanine Aminotransferase 34 U/L (6-50); Albumin Level 3.1 g/dL (3.5-5.1); Alkaline Phosphatase 147 U/L (38-126); Anion Gap 7 mmol/L (4-12); Aspartate Amino Transferase 43 U/L (17-59); Blood Urea Nitrogen 19 mg/dL (9-20); Calcium 8.1 mg/dL (8.4-10.2); Carbon Dioxide 27 mmol/L (22-30); Chloride 100 mmol/L (98-107); Estimated CRCL calculation 52 ml/min; Estimated Glomerular Filt Rate > 60; Glucose 245 mg/dL (65-110); Potassium 3.5 mmol/L (3.4-5.0); Sodium 134 mmol/L (137-145)
--- NOTE | 2023-11-12 08:24 | PM.IMPN ---
Progress Note: A&P Assessment and Plan (1) Sepsis: Code(s): A41.9 - Sepsis, unspecified organism Status: Acute (2) Acute UTI: Code(s): N39.0 - Urinary tract infection, site not specified Status: Acute Plan This is an 88-year-old male who presented to the ED with generalized weakness possible fever concern for infection and altered mental status. He also reported some mild cough. On ED arrival he was tachycardic blood pressure optimal no hypoxia overall with no focal neurological deficit. Right lung examination with mild crackles. Pinpoint lesion on thickened skin around his scrotum which has been ongoing for several years. This Has been draining for some time. Wound culture obtained from this area. He laboratory evaluation revealed leukocytosis 13.4 hemoglobin 11.7 metabolic acidosis with bicarb 15 blood sugar of 282 lactic acid was elevated at 6.6 CRP 25.3 LFTs mildly elevated. Chest x-ray with no acute cardiopulmonary disease. Urinalysis was suggestive of UTI with more than 100 RBC and more than 100 WBC. EKG showed sinus tachycardia with multiple PVC. No acute ST-T changes noted. Presentation suggestive of sepsis most likely with UTI IV fluid resuscitation received in the ER will continue with IV fluids lactic acid continues to improve. Blood culture has been obtained stent positive for Gram-negative bacilli. Repeat blood culture this a.m.. Urine culture has been sent. Continue with vancomycin and ceftriaxone. Will stop vancomycin IV. Continue on ceftriaxone 2 g daily. 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 Urology consulted. He has chronic right hydrocele. Wound culture growing Gram-negative bacilli yet to be identified. Urine culture negative to date. Blood culture x2 is also growing Gram-negative bacilli. Hypertension on lisinopril hydrochlorothiazide which will be held DVT prophylaxis Lovenox Code status do not resuscitate Subjective Date/time seen: 11/12/23 08:24 Interval history: Was a bit more hypoxic yesterday evening chest x-ray with some new opacities. Suspect congestion received 1 dose of IV Lasix. No surgical plans from Urology. Review of Systems Review of Systems: All systems reviewed & are unremarkable except as noted in HPI and below Exam Narrative: GENERAL: The patient is well developed, not in acute distress HEENT: Nonicteric sclerae, PERRLA, EOMI. Oropharynx clear. Moist mucous membranes. Conjunctivae appear well perfused. CHEST: Chest wall is nontender. HEART: Regular rate and rhythm without murmur, rubs, or gallops LUNGS: Clear to auscultation bilaterally. no respiratory distress ABDOMEN: Soft, positive bowel sounds, non-tender, no organomegaly. SKIN: No rash, no excessive bruising, petechiae, or purpura. NEUROLOGIC: Cranial nerves II-XII intact, alert and oriented x 3, no gross motor deficits EXTREMITIES: no edema, cyanosis or clubbing Objective Data Vital Signs Vital Signs: Vital Signs - 24 hr 11/11/23 10:00 11/11/23 12:00 11/11/23 12:00 Temperature 97.3 F L Pulse Rate 79 72 80 Respiratory Rate 20 Blood Pressure 117/54 L Pulse Oximetry 94 Oxygen Delivery Oxygen Flow Rate 11/11/23 12:00 11/11/23 16:00 11/11/23 14:00 Temperature Pulse Rate 80 Respiratory Rate Blood Pressure Pulse Oximetry 94 94 Oxygen Delivery Nasal Cannula Nasal Cannula Oxygen Flow Rate 3 3 11/11/23 16:00 11/11/23 16:00 11/11/23 18:00 Temperature 97.4 F L Pulse Rate 80 83 84 Respiratory Rate 28 H Blood Pressure 134/74 Pulse Oximetry 92 Oxygen Delivery Oxygen Flow Rate 11/11/23 19:56 11/11/23 19:59 11/11/23 19:54 Temperature 97.6 F Pulse Rate 86 109 H Respiratory Rate 19 20 Blood Pressure 123/62 Pulse Oximetry 91 94 Oxygen Delivery Nasal Cannula Oxygen F
[2023-11-12 08:27] LABS: Glucose Point of Care 251 mg/dl (65-105)
[2023-11-12 09:24] LABS: Basophils Absolute Auto 0.1 K/mm3 (0.0-0.1); Basophils Percent Auto 0.4 % (0.2-1.2); Eosinophils Percent Auto 0.2 % (0-4.4); Hematocrit 36.6 % (42.0-52.0); Hemoglobin 11.7 g/dL (14.0-18.0); Immature Granulocyte Absolute 0.11 K/mm3 (0.00-0.031); Immature Granulocyte Percent A 0.8 % (0-0.5); Lymphocytes Absolute Auto 0.92 K/mm3 (0.9-3.2); Mean Corpuscular Hemoglobin 27.3 pg (26-34); Mean Corpuscular Volume 85.5 fl (80-100); Mean Platelet Volume 12.6 fl (7.4-10.4); Monocytes Absolute Auto 0.8 K/mm3 (0.1-0.6); Monocytes Percent Auto 6.4 % (2.6-8.5); Neutrophils Absolute Auto 11.2 K/mm3 (1.3-6.7); Neutrophils Percent Auto 85.2 % (45.5-73.1); Platelet Count Result 254 k/mm3 (150-375); Red Blood Count 4.28 M/mm3 (4.6-6.20); Red Cell Distribution Width 15.7 % (11.5-14.5); White Blood Count 13.2 K/mm3 (4.5-10.0)
[2023-11-12] MEDS: INSULIN GLARGINE (*BKC) 100 UNITS/ML 15 UNITS SUB-Q (09:29)
[2023-11-12] MEDS: ENOXAPARIN 40 MG/0.4 ML SYRINGE SUB-Q (09:35)
[2023-11-12] MEDS: cefTRIAXone 2 GM/NS 100 ML 2 GM/100 ML BAG IVPB (09:39)
[2023-11-12] MEDS: INSULIN ASPART (*BKC) 100 UNITS/ML SUB-Q ×4 (11:24→16:55)
[2023-11-12 11:30] LABS: Glucose Point of Care 244 mg/dl (65-105)
[2023-11-12 15:53] LABS: Glucose Point of Care 299 mg/dl (65-105)
[2023-11-12] MEDS: GENTAMICIN SULFATE 0.1% OINT 15 GM TUBE 1 APPLIC TOPICAL (16:54)
[2023-11-12 20:25] LABS: Glucose Point of Care 234 mg/dl (65-105)
[2023-11-13] VITALS (19 sets, daily range): BP systolic 107–144; BP diastolic 64–79; PULSE 81–101; RESP 16–22; TEMP 35.9–36.3; O2SAT 89–96
[2023-11-13 04:58] LABS: Basophils Absolute Auto 0.1 K/mm3 (0.0-0.1); Basophils Percent Auto 0.4 % (0.2-1.2); Eosinophils Absolute Auto 0.1 K/mm3 (0-0.3); Eosinophils Percent Auto 0.9 % (0-4.4); Hematocrit 37.2 % (42.0-52.0); Hemoglobin 11.7 g/dL (14.0-18.0); Immature Granulocyte Percent A 0.7 % (0-0.5); Lymphocytes Absolute Auto 0.88 K/mm3 (0.9-3.2); Lymphocytes Percent Auto 6.6 % (18.3-44.2); Mean Corpuscular HGB Conc 31.5 g/dl (32-36); Mean Corpuscular Hemoglobin 26.8 pg (26-34); Mean Corpuscular Volume 85.1 fl (80-100); Monocytes Absolute Auto 0.8 K/mm3 (0.1-0.6); Neutrophils Absolute Auto 11.4 K/mm3 (1.3-6.7); Neutrophils Percent Auto 85.4 % (45.5-73.1); Platelet Count Result 275 k/mm3 (150-375); Red Blood Count 4.37 M/mm3 (4.6-6.20); Red Cell Distribution Width 15.3 % (11.5-14.5); White Blood Count 13.4 K/mm3 (4.5-10.0)
[2023-11-13 05:08] LABS: Alanine Aminotransferase 32 U/L (6-50); Alkaline Phosphatase 136 U/L (38-126); Anion Gap 5 mmol/L (4-12); Aspartate Amino Transferase 34 U/L (17-59); Bilirubin,Total 0.8 mg/dL (0.2-1.3); Blood Urea Nitrogen 18 mg/dL (9-20); Calcium 8.4 mg/dL (8.4-10.2); Carbon Dioxide 29 mmol/L (22-30); Chloride 103 mmol/L (98-107); Estimated CRCL calculation 52 ml/min; Estimated Glomerular Filt Rate > 60; Glucose 221 mg/dL (65-110); Magnesium 2.3 mg/dL (1.6-2.3); Potassium 3.2 mmol/L (3.4-5.0); Sodium 137 mmol/L (137-145)
[2023-11-13] MEDS: IPRATROPIUM 0.5 MG/ALBUTEROL SULFATE 2.5 MG AMPUL.NEB 3 ML INHALATION ×3 (07:12→19:59)
[2023-11-13 08:06] LABS: Glucose Point of Care 239 mg/dl (65-105)
[2023-11-13] MEDS: INSULIN ASPART (*BKC) 100 UNITS/ML SUB-Q ×5 (08:32→17:07)
[2023-11-13] MEDS: cefTRIAXone 2 GM/NS 100 ML 2 GM/100 ML BAG IVPB (08:33)
[2023-11-13] MEDS: GENTAMICIN SULFATE 0.1% OINT 15 GM TUBE 1 APPLIC TOPICAL ×2 (08:34→20:34)
[2023-11-13] MEDS: ENOXAPARIN 40 MG/0.4 ML SYRINGE SUB-Q (08:34)
[2023-11-13] MEDS: INSULIN GLARGINE (*BKC) 100 UNITS/ML 15 UNITS SUB-Q (08:35)
--- NOTE | 2023-11-13 09:10 | PM.IMPN ---
Progress Note: A&P Assessment and Plan (1) Sepsis: Code(s): A41.9 - Sepsis, unspecified organism Status: Acute (2) Acute UTI: Code(s): N39.0 - Urinary tract infection, site not specified Status: Acute Plan This is an 88-year-old male who presented to the ED with generalized weakness possible fever concern for infection and altered mental status. He also reported some mild cough. On ED arrival he was tachycardic blood pressure optimal no hypoxia overall with no focal neurological deficit. Right lung examination with mild crackles. Pinpoint lesion on thickened skin around his scrotum which has been ongoing for several years. This Has been draining for some time. Wound culture obtained from this area. He laboratory evaluation revealed leukocytosis 13.4 hemoglobin 11.7 metabolic acidosis with bicarb 15 blood sugar of 282 lactic acid was elevated at 6.6 CRP 25.3 LFTs mildly elevated. Chest x-ray with no acute cardiopulmonary disease. Urinalysis was suggestive of UTI with more than 100 RBC and more than 100 WBC. EKG showed sinus tachycardia with multiple PVC. No acute ST-T changes noted. Presentation suggestive of sepsis most likely with UTI/scrotal cellulitis/abscess and chronic ulceration IV fluid resuscitation received in the ER will continue with IV fluids lactic acid continues to improve. Blood culture has been obtained stent positive for Gram-negative bacilli. Repeat blood culture pending. Urine culture has been sent. Continue with vancomycin and ceftriaxone. Stopped vancomycin IV. Continue on ceftriaxone 2 g daily. Proteus mirabilis is susceptible to ceftriaxone. Wound culture from scrotal wound is also growing Proteus mirabilis indicating his bacteremia could be from scrotal source rather than urine. 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 Urology consulted. He has chronic right hydrocele. Wound culture growing Proteus mirabilis as well. Sensitive to ceftriaxone. Urine culture negative to date. Blood culture x2 is also growing Proteus mirabilis. Urology on board contemplating surgical exploration Hypertension on lisinopril hydrochlorothiazide which will be held Hypoxia new since admission suspected fluid overload with initial fluid resuscitation. Received diuresis and improving today. Continue taper oxygen DVT prophylaxis Lovenox Code status do not resuscitate Subjective Date/time seen: 11/13/23 09:10 Interval history: Oxygen requirement has decreased. Culture from the scrotal ulcer also growing Proteus mirabilis same bacteria growing in the blood. Repeat blood cultures pending. Leukocytosis mildly persist. Oxygen requirement down to 2 L.. Discussed with Urology Review of Systems Review of Systems: All systems reviewed & are unremarkable except as noted in HPI and below Exam Narrative: GENERAL: The patient is well developed, not in acute distress HEENT: Nonicteric sclerae, PERRLA, EOMI. Oropharynx clear. Moist mucous membranes. Conjunctivae appear well perfused. CHEST: Chest wall is nontender. HEART: Regular rate and rhythm without murmur, rubs, or gallops LUNGS: Clear to auscultation bilaterally. no respiratory distress ABDOMEN: Soft, positive bowel sounds, non-tender, no organomegaly. SKIN: No rash, no excessive bruising, petechiae, or purpura. Scrotum with ulceration and cloudy drainage noted NEUROLOGIC: Cranial nerves II-XII intact, alert and oriented x 3, no gross motor deficits EXTREMITIES: no edema, cyanosis or clubbing Objective Data Vital Signs Vital Signs: Vital Signs - 24 hr 11/12/23 11:20 11/12/23 10:00 11/12/23 12:15 Temperature 97.3 F L Pulse Rate 84 86 91 Respiratory Rate 20 Blood Pressure 133/65 Pulse Oximetry 92 Oxygen Delivery Oxygen Flow Rate Fraction of Inspired Oxyge
--- NOTE | 2023-11-13 09:57 | WPDUROPN2 ---
Progress Note: A&P Assessment and Plan (1) Hydrocele in adult: Code(s): N43.3 - Hydrocele, unspecified Status: Acute Assessment and Plan: Chronic right hydrocele with likely chronic subclinical infection in the right hemiscrotum.? There is no overlying skin edema, erythema, or superficial infection.?He has a chronic draining wound on the scrotum. Repeat scrotal US ordered today, will await results Consider scrotal exploration/drainage but patient is hesitant about proceeding unless absolutely necessary. Will make NPO at midnight in the event surgery is required. Scrotal wound culture with proteus and GBS. Blood cultures also with proteus. Continue antibiotics tailored to culture. Subjective Subjective Date/Time Seen: 11/13/23 09:57 Interval history: Doing fairly well today. Denies scrotal pain. Denies nausea, vomiting, fever, chills. Tolerating diet. Voiding without difficulty. Review of Systems Review of Systems: All systems reviewed & are unremarkable except as noted in HPI and below Exam Narrative: General: Awake, alert, comfortable, no acute distress HEENT: Normocephalic, atraumatic, sclerae anicteric Respiratory: Normal respiratory effort, no accessory muscle use Abdomen: Nondistended, soft, nontender : purewick catheter in place, right scrotum is enlarged, firm, and minimally tender to palpation, midline pinpoint opening with scant clear, serous drainage, no erythema, purulence or blood Skin: Normal coloration, warm and dry Neurologic: No focal neuro deficits noted Psychiatric: Appropriate mood and affect, judgment and insight intact Objective Data Vital Signs Vital Signs: Vital Signs - 24 hr 11/12/23 11:20 11/12/23 10:00 11/12/23 12:15 Temperature 97.3 F L Pulse Rate 84 86 91 Respiratory Rate 20 Blood Pressure 133/65 Pulse Oximetry 92 Oxygen Delivery Oxygen Flow Rate Fraction of Inspired Oxygen 11/12/23 12:15 11/12/23 12:55 11/12/23 13:15 Temperature Pulse Rate 88 Respiratory Rate 19 Blood Pressure Pulse Oximetry 93 Oxygen Delivery Nasal Cannula Nasal Cannula Oxygen Flow Rate 4 4 Fraction of Inspired Oxygen 11/12/23 14:00 11/12/23 16:13 11/12/23 16:45 Temperature 98.1 F Pulse Rate 87 88 88 Respiratory Rate 18 Blood Pressure 119/70 Pulse Oximetry 97 Oxygen Delivery Oxygen Flow Rate Fraction of Inspired Oxygen 11/12/23 16:45 11/12/23 16:06 11/12/23 19:55 Temperature 97.1 F L Pulse Rate 90 Respiratory Rate 18 Blood Pressure 115/63 Pulse Oximetry 97 96 Oxygen Delivery Nasal Cannula Nasal Cannula Oxygen Flow Rate 3 4 Fraction of Inspired Oxygen 11/12/23 19:56 11/12/23 18:00 11/12/23 18:00 Temperature Pulse Rate 90 78 Respiratory Rate Blood Pressure Pulse Oximetry 92 Oxygen Delivery Nasal Cannula Oxygen Flow Rate 4 Fraction of Inspired Oxygen 11/12/23 20:02 11/12/23 20:13 11/12/23 20:10 Temperature Pulse Rate 83 83 80 Respiratory Rate 20 20 Blood Pressure Pulse Oximetry 96 Oxygen Delivery Nasal Cannula Oxygen Flow Rate 4 Fraction of Inspired Oxygen 11/12/23 20:00 11/12/23 20:00 11/12/23 22:00 Temperature Pulse Rate 77 83 Respiratory Rate Blood Pressure Pulse Oximetry 95 Oxygen Delivery Nasal Cannula Oxygen Flow Rate 4 Fraction of Inspired Oxygen 11/13/23 00:01 11/13/23 00:00 11/13/23 00:00 Temperature 97.0 F L Pulse Rate 81 82 Respiratory Rate 20 Blood Pressure 134/70 Pulse Oximetry 96 95 Oxygen Delivery Nasal Cannula Oxygen Flow Rate 4 Fraction of Inspired Oxygen 11/13/23 02:00 11/13/23 04:00 11/13/23 04:00 Temperature 97.3 F L Pulse Rate 88 86 89 Respiratory Rate 20 Blood Pressure 144/76 H Pulse Oximetry 92 Oxygen Delivery Oxygen Flow Rate Fraction of Inspired Oxygen 11/13/23 04:00 11/13/23 06:00 11/13/23 07:12 Temperature Pulse Rate 83 R
[2023-11-13 12:04] LABS: Glucose Point of Care 173 mg/dl (65-105)
[2023-11-13 16:36] LABS: Glucose Point of Care 225 mg/dl (65-105)
[2023-11-13] MEDS: POTASSIUM CHLORIDE 20 MEQ ER TABLET 40 MEQ PO (20:33)
[2023-11-13 21:10] LABS: Glucose Point of Care 202 mg/dl (65-105)
[2023-11-14] VITALS (18 sets, daily range): BP systolic 112–139; BP diastolic 31–86; PULSE 80–90; RESP 15–27; TEMP 36.3–37.2; O2SAT 90–99
[2023-11-14] MEDS: IPRATROPIUM 0.5 MG/ALBUTEROL SULFATE 2.5 MG AMPUL.NEB 3 ML INHALATION ×3 (02:21→20:36)
[2023-11-14 07:11] LABS: Basophils Percent Auto 0.3 % (0.2-1.2); Eosinophils Absolute Auto 0.2 K/mm3 (0-0.3); Eosinophils Percent Auto 1.5 % (0-4.4); Hematocrit 34.7 % (42.0-52.0); Hemoglobin 11.2 g/dL (14.0-18.0); Immature Granulocyte Absolute 0.11 K/mm3 (0.00-0.031); Lymphocytes Absolute Auto 0.92 K/mm3 (0.9-3.2); Mean Corpuscular HGB Conc 32.3 g/dl (32-36); Mean Corpuscular Hemoglobin 27.6 pg (26-34); Mean Corpuscular Volume 85.5 fl (80-100); Mean Platelet Volume 12.1 fl (7.4-10.4); Monocytes Absolute Auto 0.7 K/mm3 (0.1-0.6); Monocytes Percent Auto 6.4 % (2.6-8.5); Neutrophils Absolute Auto 9.5 K/mm3 (1.3-6.7); Neutrophils Percent Auto 82.8 % (45.5-73.1); Platelet Count Result 298 k/mm3 (150-375); Red Blood Count 4.06 M/mm3 (4.6-6.20); Red Cell Distribution Width 15.7 % (11.5-14.5); White Blood Count 11.5 K/mm3 (4.5-10.0)
[2023-11-14 07:24] LABS: Alanine Aminotransferase 30 U/L (6-50); Albumin Level 2.8 g/dL (3.5-5.1); Alkaline Phosphatase 115 U/L (38-126); Anion Gap 6 mmol/L (4-12); Aspartate Amino Transferase 39 U/L (17-59); Bilirubin,Total 0.9 mg/dL (0.2-1.3); Blood Urea Nitrogen 18 mg/dL (9-20); Calcium 8.1 mg/dL (8.4-10.2); Carbon Dioxide 25 mmol/L (22-30); Chloride 106 mmol/L (98-107); Estimated CRCL calculation 52 ml/min; Estimated Glomerular Filt Rate > 60; Glucose 185 mg/dL (65-110); Magnesium 2.3 mg/dL (1.6-2.3); Potassium 3.2 mmol/L (3.4-5.0); Sodium 137 mmol/L (137-145)
[2023-11-14 08:22] LABS: Glucose Point of Care 195 mg/dl (65-105)
[2023-11-14] MEDS: cefTRIAXone 2 GM/NS 100 ML 2 GM/100 ML BAG IVPB (08:43)
[2023-11-14] MEDS: INSULIN GLARGINE (*BKC) 100 UNITS/ML 15 UNITS SUB-Q (08:44)
[2023-11-14] MEDS: GENTAMICIN SULFATE 0.1% OINT 15 GM TUBE 1 APPLIC TOPICAL (08:47)
--- NOTE | 2023-11-14 11:21 | WPDUROPN2 ---
Progress Note: A&P Assessment and Plan (1) Scrotal abscess: Code(s): N49.2 - Inflammatory disorders of scrotum Status: Acute Assessment and Plan: proceed with scrotal exploration with I & D, possible right hydrocelectomy Subjective Subjective Date/Time Seen: 11/14/23 11:21 Principal diagnosis: scrotal abscess Interval history: Sadiq continues to have some drainage form his scrotum. Review of Systems Review of Systems: All systems reviewed & are unremarkable except as noted in HPI and below Exam Const: General: cooperative and comfortable Resp: Effort & Inspection: normal respiratory effort Cardio: Rate: regular rate : Scrotum: edematous and scrotal swelling (open wound with purulent drainage. ) Objective Data Vital Signs Vital Signs: Vital Signs - 24 hr 11/13/23 11:52 11/13/23 14:06 11/13/23 14:29 Temperature 35.9 C L 36.1 C L Pulse Rate 101 H 89 92 Respiratory Rate 20 18 18 Blood Pressure 107/64 126/79 Pulse Oximetry 95 93 Oxygen Delivery Oxygen Flow Rate 11/13/23 14:40 11/13/23 14:15 11/13/23 15:00 Temperature Pulse Rate 93 Respiratory Rate 18 Blood Pressure Pulse Oximetry 93 95 Oxygen Delivery Nasal Cannula Nasal Cannula Oxygen Flow Rate 2 3 11/13/23 14:55 11/13/23 20:02 11/13/23 20:35 Temperature 36.2 C L Pulse Rate 88 90 Respiratory Rate 18 16 Blood Pressure 129/67 Pulse Oximetry 89 L 92 Oxygen Delivery Nasal Cannula Oxygen Flow Rate 2 11/14/23 02:25 11/13/23 20:12 11/14/23 05:38 Temperature 36.6 C Pulse Rate 82 91 86 Respiratory Rate 18 18 20 Blood Pressure 134/76 Pulse Oximetry 90 Oxygen Delivery Oxygen Flow Rate 11/14/23 07:41 11/14/23 07:41 11/14/23 07:54 Temperature Pulse Rate 88 89 Respiratory Rate 20 20 Blood Pressure Pulse Oximetry 93 Oxygen Delivery Nasal Cannula Oxygen Flow Rate 3 Intake/Output Intake/Output: Intake & Output 11/11/23 11/12/23 11/13/23 11/14/23 23:59 23:59 23:59 23:59 Intake Total 2320 890 300 100 Output Total 850 1300 1200 200 Balance 8490 -410 -900 -100 Meds/Results Medications: Active Medications Generic Name Dose Route Start Last Admin Trade Name Freq PRN Reason Stop Dose Admin Acetaminophen 650 mg 11/10/23 18:27 Acetaminophen 325 Mg Tablet PO Q6H PRN Mild Pain (1-3) or Fever Albuterol/Ipratropium 3 ml 11/11/23 20:00 11/14/23 07:40 Ipratropium 0.5 Mg/Albuterol Sulfate 2.5 Mg Ampul.Neb 3 Ml INHALATION 3 ml Q6HRT CHAVO Administration Dextrose 12.5 gm 11/10/23 14:13 Dextrose 50% 25 Gm/50 Ml Syringe IV PUSH PRN PRN Hypoglycemia Protocol Enoxaparin Sodium 40 mg 11/11/23 09:00 11/13/23 08:34 Enoxaparin 40 Mg/0.4 Ml Syringe SUB-Q 40 mg DAILY CHAVO Administration Gentamicin Sulfate 1 applic 11/13/23 21:00 11/14/23 08:47 Gentamicin Sulfate 0.1% Oint 15 Gm Tube TOPICAL 11/21/23 23:55 1 applic Q12H CHAVO Administration Glucagon 1 mg 11/10/23 14:13 Glucagon For Inj 1 Mg Vial IM PRN PRN Hypoglycemia Protocol Glucose 15 gm 11/10/23 14:13 Glucose Oral Gel 15 Gm Of Glucse In 37.5 Gm Tube PO PRN PRN Hypoglycemia Protocol Dextrose 1,000 mls @ 100 mls/hr 11/10/23 14:13 Dextrose 5% 1,000 Ml IVPB PRN PRN Hypoglycemia Protocol Ceftriaxone Sodium 2 gm in 100 mls @ 200 mls/hr 11/12/23 09:00 11/14/23 09:13 Rocephin 2 Gm/Ns 100 Ml IVPB Infused Q24H CHAVO Infusion Insulin Aspart 2 - 5 units 11/10/23 17:00 11/14/23 08:39 Insulin Aspart (*Bkc) 100 Units/Ml SUB-Q Not Given [facility] Protocol Insulin Aspart 5 units 11/12/23 08:00 11/14/23 08:39 Insulin Aspart (*Bkc) 100 Units/Ml 0.067 units/kg (5 units) Not Given SUB-Q [facility] Insulin Glargine 15 units 11/12/23 09:00 11/14/23 08:44 Insulin Glargine (*Bkc) 100 Units/Ml SUB-Q 15 units DAILY CHAVO Administration Radio
--- NOTE | 2023-11-14 11:55 | PC.NURSE ---
To OR via bed.
--- NOTE | 2023-11-14 11:59 | WPDHPUPDATE1 ---
History and Physical Update Update Date/Time: 11/14/23 11:59 History and Physical has been reviewed, including an updated exam of the patient. There are NO changes in the patient's condition. Risks, benefits, and alternatives have been discussed and questions answered. Patient agrees to proceed with procedure. Proceed with scrotal exploration, I & D scrotal abscess, possible hydrocelectomy
[2023-11-14 12:32] LABS: Glucose Point of Care 154 mg/dl (65-105)
[2023-11-14 12:39] LABS: PSA, Free 3.5 ng/mL; PSA, Total 14.5 ng/mL (< OR = 4.0); Percent Free Prostate Spec Ag NOT CALCULATED % (calc) (>25)
--- NOTE | 2023-11-14 12:50 | PCPTNOTE ---
The patient treatment was not able to be completed due to patient out of room for surgery. Will plan to continue treatment per plan of care.
--- NOTE | 2023-11-14 12:57 | WPDANESEPPF ---
Anes - Initial Pre Proc Eval Procedure: Operation Date: 11/14/23 13:30 Proposed Procedures p Incision and Drainage Scrotal Abscess - Bacilio Navarro MD Date/Time: 11/14/23 12:57 Surgeon: Robert Bright MD Pre Op Diagnosis: UTI w/ sepsis Patient Data Age: 88 Gender: M Height: 1.75 m Weight: 81.5 kg Last Vital Signs Temp 97.4 F L 11/14/23 12:33 Pulse 85 11/14/23 12:33 Resp 18 11/14/23 12:33 BP 139/75 11/14/23 12:33 Pulse Ox 97 11/14/23 12:33 O2 Del Method Nasal Cannula 11/14/23 12:33 O2 Flow Rate 3 11/14/23 12:33 FiO2 28 11/13/23 08:00 Allergies Allergy/AdvReac Type Severity Reaction Status Date / Time gabapentin Allergy Numbness Verified 11/10/23 07:46 Home Medications Medication Instructions Recorded Confirmed Type empagliflozin 10 mg tablet 10 mg DAILY 11/10/23 11/10/23 History (Jardiance) lisinopril 10 1 tablet PO DAILY 11/10/23 11/10/23 History mg-hydrochlorothiazide 12.5 mg tablet metformin 1,000 mg tablet 1,000 mg PO BID 11/10/23 11/10/23 History Laboratory Tests 11/11/23 11/13/23 11/13/23 04:07 16:33 21:08 WBC RBC Hgb Hct MCV MCH MCHC RDW Plt Count MPV Immature Gran % (Auto) Neut % (Auto) Lymph % (Auto) [place] % (Auto) Eos % (Auto) Baso % (Auto) Lymph # (Auto) [place] # (Auto) Eos # (Auto) Baso # (Auto) Abs Immat Gran (auto) Absolute Neuts (auto) Absolute Nucleated RBC Nucleated RBC % Sodium Potassium Chloride Carbon Dioxide Anion Gap BUN Creatinine Estim Creat Clear Calc Estimated GFR Glucose POC Capillary Glucose 225 H mg/dl 202 H mg/dl (65-105) (65-105) Calcium Magnesium Total Bilirubin AST ALT Alkaline Phosphatase Total Protein Albumin Free PSA 3.5 ng/mL % Free PSA Not calculated % (calc) (>25) Total PSA 14.5 H ng/mL (< OR = 4.0) 11/14/23 11/14/23 11/14/23 06:09 08:12 12:24 WBC 11.5 H K/mm3 (4.5-10.0) RBC 4.06 L M/mm3 (4.6-6.20) Hgb 11.2 L g/dL (14.0-18.0) Hct 34.7 L % (42.0-52.0) MCV 85.5 fl (80-100) MCH 27.6 pg (26-34) MCHC 32.3 g/dl (32-36) RDW 15.7 H % (11.5-14.5) Plt Count 298 k/mm3 (150-375) MPV 12.1 H fl (7.4-10.4) Immature Gran % (Auto) 1.0 H % (0-0.5) Neut % (Auto) 82.8 H % (45.5-73.1) Lymph % (Auto) 8.0 L % (18.3-44.2) [place] % (Auto) 6.4 % (2.6-8.5) Eos % (Auto) 1.5 % (0-4.4) Baso % (Auto) 0.3 % (0.2-1.2) Lymph # (Auto) 0.92 K/mm3 (0.9-3.2) [place] # (Auto) 0.7 H K/mm3 (0.1-0.6) Eos # (Auto) 0.2 K/mm3 (0-0.3) Baso # (Auto) 0.0 K/mm3 (0.0-0.1) Abs Immat Gran (auto) 0.11 H K/mm3 (0.00-0.031) Absolute Neuts (auto) 9.5 H K/mm3 (1.3-6.7) Absolute Nucleated RBC 0.000 K/mm3 (0.0-0.012) Nucleated RBC % 0.0 % (0.0-0.2) Sodium 137 mmol/L (137-145) Potassium 3.2 L mmol/L (3.4-5.0) Chloride 106 mmol/L (98-107) Carbon Dioxide 25 mmol/L (22-30) Anion Gap 6 mmol/L (4-12) BUN 18 mg/dL (9-20) Creatinine 0.90 mg/dL (0.7-1.3) Estim Creat Clear Calc 52 ml/min Estimated GFR > 60 (59 - ) Glucose 185 H mg/dL (65-110) POC Capillary Glucose 195 H mg/dl 154 H mg/dl (65-105) (
--- NOTE | 2023-11-14 14:12 | SUR.OPER ---
at approx. 1406 patient's daughter was called and Dr. Mack had lengthy conversation concerning possible orchiectomy due to [facility] evidence of infection.
--- NOTE | 2023-11-14 14:28 | SUR.OPER ---
gave 1 ampule of dilaudid to Christine Sampson HYDROELECTRIC STATION CHIEF
--- NOTE | 2023-11-14 14:40 | W.PM.PROC2 ---
Procedure Note - Detailed Date of Procedure 11/14/23 Pre-op Diagnosis Scrotal abscess Post-op Diagnosis Same (Pyocele, scrotal abscess) Procedure Performed I&D of scrotal abscess, scrotal exploration with right hydrocelectom/pyocelectomy/orchiectomy. hernandez placement Surgeon Bacilio Navarro MD Anesthesia General Description of Procedure Patient was taken to the operative suite correctly identified. Once anesthesia was obtained he was prepped draped usual sterile fashion. It was noted that purulence was coming measuring about 9 mm to the right of the midline. Exploration of this revealed some purulence. At this point the opening was extended laterally. The area was copiously irrigated. There was quite a bit of edema overlying the hydrocele sac. At this point I placed an 18 gauge needle into the hydrocele sac and it was essentially pure dark purulence that was extracted. Given his age and significant amount of purulence that is noted it was opted to passed removed the testicle with the hydrocele sac in its entirety. I discussed this with his daughter. I did also discuss this as a possibility prior to the surgery. Clamps were placed along the cord and specimen was transected. 0 Prolene was used to suture ligate the cord. There was good hemostasis. Again this area was copiously irrigated. Quarter-inch Elke drain was then placed through a separate stab incision. I closed the right tunica and a portion of the right incision with chromic in interrupted fashion. I left the abscess area open. This was packed with 1 in iodoform gauze. This will be removed tomorrow and packed with wet to dry dressing changes. Sixteen Vietnamese Hernandez was then placed as he is incontinent of urine we wanted to keep the wound clean. Patient was taken recovery stable condition. This completes dictation. Please send a copy of op note to my office Estimated Blood Loss 10 Urine Output 400 Drains Yes Packing Yes Pathology Yes Complications No immediate complications Condition Stable Disposition PACU
[2023-11-14] MEDS: LACTATED RINGERS 1,000 ML 30 ML IV CONT (14:55)
[2023-11-14] MEDS: POTASSIUM CHLORIDE 20 MEQ ER TABLET 40 MEQ PO (17:09)
[2023-11-14 17:11] LABS: Glucose Point of Care 151 mg/dl (65-105)
[2023-11-14] MEDS: INSULIN ASPART (*BKC) 100 UNITS/ML SUB-Q (17:11)
[2023-11-14 17:20] LABS: Glucose Point of Care 161 mg/dl (65-105)
--- NOTE | 2023-11-14 20:30 | PM.IMPN ---
Progress Note: A&P Assessment and Plan (1) Sepsis: Code(s): A41.9 - Sepsis, unspecified organism Status: Acute (2) Acute UTI: Code(s): N39.0 - Urinary tract infection, site not specified Status: Acute (3) Scrotal abscess: Code(s): N49.2 - Inflammatory disorders of scrotum Status: Acute (4) Hydrocele in adult: Code(s): N43.3 - Hydrocele, unspecified Status: Acute (5) Hypoxia: Code(s): R09.02 - Hypoxemia Status: Acute (6) Diabetes mellitus: Code(s): E11.9 - Type 2 diabetes mellitus without complications Status: Acute Plan This is an 88-year-old male who presented to the ED with generalized weakness possible fever concern for infection and altered mental status. He also reported some mild cough. On ED arrival he was tachycardic blood pressure optimal no hypoxia overall with no focal neurological deficit. Right lung examination with mild crackles. Pinpoint lesion on thickened skin around his scrotum which has been ongoing for several years. This Has been draining for some time. Wound culture obtained from this area. He laboratory evaluation revealed leukocytosis 13.4 hemoglobin 11.7 metabolic acidosis with bicarb 15 blood sugar of 282 lactic acid was elevated at 6.6 CRP 25.3 LFTs mildly elevated. Chest x-ray with no acute cardiopulmonary disease. Urinalysis was suggestive of UTI with more than 100 RBC and more than 100 WBC. EKG showed sinus tachycardia with multiple PVC. No acute ST-T changes noted. Presentation suggestive of sepsis most likely with UTI/scrotal cellulitis/abscess and chronic ulceration IV fluid resuscitation received in the ER will continue with IV fluids lactic acid continues to improve. Blood culture has been obtained stent positive for Gram-negative bacilli. Repeat blood culture pending. Urine culture has been sent. Continue with vancomycin and ceftriaxone. Stopped vancomycin IV. Continue on ceftriaxone 2 g daily. Proteus mirabilis is susceptible to ceftriaxone. Wound culture from scrotal wound is also growing Proteus mirabilis indicating his bacteremia could be from scrotal source rather than urine. 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 Urology consulted. He has chronic right hydrocele. Wound culture growing Proteus mirabilis as well. Sensitive to ceftriaxone. Urine culture negative. Blood culture x2 is also growing Proteus mirabilis. Urology on board contemplating surgical exploration Hypertension on lisinopril hydrochlorothiazide which will be held Hypoxia new since admission suspected fluid overload with initial fluid resuscitation. Received diuresis once. Continue taper oxygen 11/13; Patient taken to the OR today for debridement of scrotal abscess. Scrotal wound culture growing Proteus as is his blood culture. Urine culture negative. It appears the source of bacteremia is from the scrotal wound. Appreciate Urology input. Continue IV antibiotics. Continue Lantus and NovoLog. Chest x-ray was clear on admission but did show dependent atelectasis in lung bases on the CT scan. Repeat chest x-ray again showed mild airspace opacities in the lower lung zones likely edema. He received 1 dose of IV Lasix 3 days ago. Will check BNP. Check echo. Repeat x-ray in the morning. DVT prophylaxis Lovenox Code status do not resuscitate Subjective Date/time seen: 11/14/23 20:30 Interval history: 88yo male with DM here for weakness Assuming care. Chart reviewed. He feels well today. No chest pain shortness of breath. He does not wear oxygen at home. He lifelong nonsmoker. Does not have asthma. 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 Positive bowel movement yesterday. Exam Narrative: AF 97.9 125/60 81 20 96% 3L Gen - NARD Chest
[2023-11-15] VITALS (14 sets, daily range): BP systolic 120–129; BP diastolic 58–89; PULSE 74–91; RESP 18–20; TEMP 36.3–36.9; O2SAT 90–96
--- NOTE | 2023-11-15 | ECHO_ITS ---
Patient Info Name: Sadiq Bennett Age: 88 years : 1935 Gender: Male Ht: 69 in Wt: 179 lbs BSA: 2.00 m2 HR: 78 bpm BP: 129 / 89 mmHg Heart Rhythm: Sinus Rhythm Technical Quality: Fair Exam Date: 11/15/2023 8:04 AM Exam Location: Echo Lab Patient Status: Inpatient Admit Date: 11/10/2023 Staff Ordering Physician: Khanh Barrera MD It Programmer Analyst: William Bradford RDCS Attending Provider: Robert Bright MD Exam Type: CA echo doppler color flow Study Info Indications J81.0 - Acute pulmonary edema Complete two-dimensional, color flow and Doppler transthoracic echocardiogram is performed. Summary 1. Left ventricular chamber dimension is normal. 2. Left ventricular systolic function is normal, estimated at 55-60%. 3. There is mildly increased left ventricular wall thickness. 4. The left ventricular diastolic function is grade I diastolic dysfunction. 5. Right ventricular systolic function is normal. 6. There is mild tricuspid valve regurgitation. 7. There is small circumferential pericardial effusion. Left Ventricle Left ventricular chamber dimension is normal. Left ventricular systolic function is normal, estimated at 55-60%. There is mildly increased left ventricular wall thickness. The left ventricular diastolic function is grade I diastolic dysfunction. Right Ventricle Right ventricular chamber dimension is normal. Right ventricular systolic function is normal. Left Atria Left atrial chamber dimension is normal. Right Atria Right atrial chamber dimension is normal. Atrial Septum Intact interatrial septum visualized by color flow imaging. Aortic Valve The aortic valve is trileaflet. There is no aortic valve stenosis. There is no aortic valve regurgitation. There is mild aortic valve calcification. Pulmonic Valve The pulmonic valve is not well visualized. There is trace pulmonic regurgitation. Mitral Valve There is trace mitral valve regurgitation. Tricuspid Valve There is mild tricuspid valve regurgitation. Pericardium/Pleural There is small circumferential pericardial effusion. Inferior Vena Cava Inferior vena cava is not well visualized. Aorta The aortic root size at the sinus of Valsalva is normal. Left Ventricular Outflow Tract Name Value Normal LVOT 2D LVOT Diameter 1.9 cm LVOT Doppler LVOT Peak Gradient 4 mmHg LVOT Mean Gradient 2 mmHg LVOT VTI 21 cm LVOT VTI/AV VTI Ratio 0.7 LVOT Stroke Volume 61 ml LVOT CO 4.4 l/min LVOT CI 2.2 l/min/m2 Pulmonic Valve Name Value Normal RVOT Doppler RVOT Peak Gradient 3 mmHg PV Doppler PV Peak Gradient 5 mmHg PV Regu
[2023-11-15] MEDS: IPRATROPIUM 0.5 MG/ALBUTEROL SULFATE 2.5 MG AMPUL.NEB 3 ML INHALATION ×4 (01:41→20:12)
[2023-11-15 06:16] LABS: Basophils Percent Auto 0.2 % (0.2-1.2); Eosinophils Percent Auto 0.1 % (0-4.4); Hematocrit 35.1 % (42.0-52.0); Hemoglobin 10.8 g/dL (14.0-18.0); Immature Granulocyte Percent A 0.9 % (0-0.5); Lymphocytes Absolute Auto 0.74 K/mm3 (0.9-3.2); Lymphocytes Percent Auto 6.8 % (18.3-44.2); Mean Corpuscular HGB Conc 30.8 g/dl (32-36); Mean Corpuscular Hemoglobin 26.7 pg (26-34); Mean Corpuscular Volume 86.9 fl (80-100); Monocytes Absolute Auto 0.5 K/mm3 (0.1-0.6); Monocytes Percent Auto 4.8 % (2.6-8.5); Neutrophils Absolute Auto 9.6 K/mm3 (1.3-6.7); Neutrophils Percent Auto 87.2 % (45.5-73.1); Platelet Count Result 322 k/mm3 (150-375); Red Blood Count 4.04 M/mm3 (4.6-6.20); White Blood Count 10.9 K/mm3 (4.5-10.0)
[2023-11-15 06:46] LABS: NT Pro B Type Natriuretic Pept 3160 pg/mL (19.9-100)
[2023-11-15 06:58] LABS: Anion Gap 7 mmol/L (4-12); Blood Urea Nitrogen 20 mg/dL (9-20); Carbon Dioxide 25 mmol/L (22-30); Chloride 104 mmol/L (98-107); Estimated CRCL calculation 52 ml/min; Estimated Glomerular Filt Rate > 60; Glucose 229 mg/dL (65-110); Sodium 136 mmol/L (137-145)
[2023-11-15 07:02] LABS: Potassium 3.9 mmol/L (3.4-5.0)
[2023-11-15 07:39] LABS: Glucose Point of Care 221 mg/dl (65-105)
--- NOTE | 2023-11-15 08:12 | WPDUROPN2 ---
Progress Note: A&P Assessment and Plan (1) Scrotal abscess: Code(s): N49.2 - Inflammatory disorders of scrotum Status: Acute Assessment and Plan: Doing well overall with improved white count. Will have our nurse practitioner evaluate scrotum later this morning with dressing change and start wet-to-dry changes going forward. Will remove Elke drain possibly in another day. Subjective Subjective Date/Time Seen: 11/15/23 08:12 Post Op day: 1 (Scrotal exploration with I and D of scrotal abscess and right orchiectomy/hydrocelectomy) Principal diagnosis: scrotal abscess with pyocele Interval history: patient is feeling well today. No complaints of pain. He is undergoing ultrasound procedure at this time. Did not evaluate his scrotum this morning. Review of Systems Review of Systems: All systems reviewed & are unremarkable except as noted in HPI and below Exam Const: General: cooperative and comfortable Objective Data Vital Signs Vital Signs: Vital Signs - 24 hr 11/14/23 12:33 11/14/23 08:45 11/14/23 14:55 Temperature 36.3 C L 36.6 C Pulse Rate 85 85 Respiratory Rate 18 17 Blood Pressure 139/75 115/31 L Pulse Oximetry 97 96 96 Oxygen Delivery Nasal Cannula Nasal Cannula Simple Face Mask Oxygen Flow Rate 3 3 8 11/14/23 15:10 11/14/23 15:25 11/14/23 15:40 Temperature Pulse Rate 83 83 83 Respiratory Rate 27 H 19 15 Blood Pressure 114/86 112/59 L 135/65 Pulse Oximetry 97 97 99 Oxygen Delivery Simple Face Mask Simple Face Mask Nasal Cannula Oxygen Flow Rate 8 8 3 11/14/23 16:05 11/14/23 16:20 11/14/23 16:50 Temperature 36.4 C L 36.6 C 37.2 C Pulse Rate 87 86 80 Respiratory Rate 20 20 20 Blood Pressure 119/60 126/63 122/72 Pulse Oximetry 90 92 92 Oxygen Delivery Oxygen Flow Rate 11/14/23 17:50 11/14/23 20:36 11/14/23 20:45 Temperature 36.6 C Pulse Rate 81 84 88 Respiratory Rate 20 20 20 Blood Pressure 125/60 Pulse Oximetry 96 Oxygen Delivery Oxygen Flow Rate 11/14/23 20:52 11/14/23 21:39 11/15/23 00:40 Temperature 36.3 C L 36.3 C L Pulse Rate 90 80 Respiratory Rate 20 18 Blood Pressure 117/57 L 129/89 Pulse Oximetry 93 92 94 Oxygen Delivery Nasal Cannula Oxygen Flow Rate 3 11/15/23 01:43 11/15/23 01:53 11/15/23 06:00 Temperature 36.4 C Pulse Rate 82 80 82 Respiratory Rate 18 18 18 Blood Pressure 127/63 Pulse Oximetry 96 Oxygen Delivery Oxygen Flow Rate 11/15/23 07:03 11/15/23 07:03 11/15/23 07:10 Temperature Pulse Rate 78 78 79 Respiratory Rate 18 18 18 Blood Pressure Pulse Oximetry 94 Oxygen Delivery Nasal Cannula Oxygen Flow Rate 3 Intake/Output Intake/Output: Intake & Output 11/12/23 11/13/23 11/14/23 11/15/23 23:59 23:59 23:59 23:59 Intake Total 890 300 580 222 Output Total 1300 1200 1225 600 Balance -410 -900 -645 -378 Meds/Results Medications: Active Medications Generic Name Dose Route Start Last Admin Trade Name Freq PRN Reason Stop Dose Admin Acetaminophen 650 mg 11/10/23 18:27 Acetaminophen 325 Mg Tablet PO Q6H PRN Mild Pain (1-3) or Fever Albuterol/Ipratropium 3 ml 11/11/23 20:00 11/15/23 07:03 Ipratropium 0.5 Mg/Albuterol Sulfate 2.5 Mg Ampul.Neb 3 Ml INHALATION 3 ml Q6HRT CHAVO Administration Dextrose 12.5 gm 11/10/23 14:13 Dextrose 50% 25 Gm/50 Ml Syringe IV PUSH PRN PRN Hypoglycemia Protocol Enoxaparin Sodium 40 mg 11/11/23 09:00 11/14/23 12:04 Enoxaparin 40 Mg/0.4 Ml Syringe SUB-Q Not Given DAILY CHAVO Gentamicin Sulfate 1 applic 11/13/23 21:00 11/14/23 21:16 Gentamicin Sulfate 0.1% Oint 15 Gm Tube TOPICAL 11/21/23 23:55 Not Given Q12H CHAVO Glucagon 1 mg 11/10/23 14:13 Glucagon For Inj 1 Mg Vial IM PRN PRN Hypoglycemia Protocol Glucose 15 gm 11/10/23 14:13 Glucose Oral Gel 15 Gm Of Glucse In 37.5 Gm Tube PO PRN PRN Hypoglycemia Protoco
[2023-11-15] MEDS: INSULIN ASPART (*BKC) 100 UNITS/ML SUB-Q ×5 (10:05→16:49)
[2023-11-15] MEDS: INSULIN GLARGINE (*BKC) 100 UNITS/ML 15 UNITS SUB-Q (10:06)
[2023-11-15] MEDS: ENOXAPARIN 40 MG/0.4 ML SYRINGE SUB-Q (10:10)
[2023-11-15] MEDS: cefTRIAXone 2 GM/NS 100 ML 2 GM/100 ML BAG IVPB (10:10)
[2023-11-15 11:22] LABS: Glucose Point of Care 282 mg/dl (65-105)
--- NOTE | 2023-11-15 12:00 | PCPTNOTE ---
Spoke with Dr. Barrera in person. Pt had a procedure yesterday. Dr. Barrera OK to resume with skilled therapy Plan of care.
--- NOTE | 2023-11-15 13:13 | P.PNAN_ITS ---
Anes - Prog Note Post-Op Date/Time: 11/15/23 13:13 Vital Signs: Last Vital Signs Temp 36.4 C 11/15/23 06:00 Pulse 91 11/15/23 08:00 Resp 18 11/15/23 07:10 BP 127/63 11/15/23 06:00 Pulse Ox 91 11/15/23 08:00 O2 Del Method Room Air 11/15/23 08:00 O2 Flow Rate 3 11/15/23 07:03 FiO2 28 11/13/23 08:00 Pain Score (VAS): 0 I/O: Intake & Output 11/14/23 11/15/23 11/15/23 23:59 07:59 15:59 Intake Total 480 222 580 Output Total 250 600 200 Balance 230 -378 380 Laboratory Tests 11/15/23 05:28 11/15/23 05:28 11/14/23 11/14/23 11/15/23 15:09 17:10 05:28 WBC 10.9 H RBC 4.04 L Hgb 10.8 L Hct 35.1 L MCV 86.9 MCH 26.7 MCHC 30.8 L RDW 16.0 H Plt Count 322 MPV 12.0 H Immature Gran % (Auto) 0.9 H Neut % (Auto) 87.2 H Lymph % (Auto) 6.8 L [place] % (Auto) 4.8 Eos % (Auto) 0.1 Baso % (Auto) 0.2 Lymph # (Auto) 0.74 L [place] # (Auto) 0.5 Eos # (Auto) 0.0 Baso # (Auto) 0.0 Abs Immat Gran (auto) 0.10 H Absolute Neuts (auto) 9.6 H Absolute Nucleated RBC 0.000 Nucleated RBC % 0.0 Sodium 136 L Potassium 3.9 Chloride 104 Carbon Dioxide 25 Anion Gap 7 BUN 20 Creatinine 0.90 Estim Creat Clear Calc 52 Estimated GFR > 60 Glucose 229 H POC Capillary Glucose 151 H 161 H Calcium 8.0 L NT-Pro-B Natriuret Pep 3160 H TSH (Reflex) 1.290 11/15/23 11/15/23 07:35 11:19 WBC RBC Hgb Hct MCV MCH MCHC RDW Plt Count MPV Immature Gran % (Auto) Neut % (Auto) Lymph % (Auto) [place] % (Auto) Eos % (Auto) Baso % (Auto) Lymph # (Auto) [place] # (Auto) Eos # (Auto) Baso # (Auto) Abs Immat Gran (auto) Absolute Neuts (auto) Absolute Nucleated RBC Nucleated RBC % Sodium Potassium Chloride Carbon Dioxide Anion Gap BUN Creatinine Estim Creat Clear Calc Estimated GFR Glucose POC Capillary Glucose 221 H 282 H Calcium NT-Pro-B Natriuret Pep TSH (Reflex) Microbiology 11/14/23 14:22 Testicle Right Anaerobic Culture - Preliminary Patient Feedback: Patient satisfied with anesthetic care.
[2023-11-15 16:19] LABS: Glucose Point of Care 195 mg/dl (65-105)
--- NOTE | 2023-11-15 17:30 | PM.IMPN ---
Progress Note: A&P Assessment and Plan (1) Sepsis: Code(s): A41.9 - Sepsis, unspecified organism Status: Acute (2) Acute UTI: Code(s): N39.0 - Urinary tract infection, site not specified Status: Acute (3) Scrotal abscess: Code(s): N49.2 - Inflammatory disorders of scrotum Status: Acute (4) Hydrocele in adult: Code(s): N43.3 - Hydrocele, unspecified Status: Acute (5) Hypoxia: Code(s): R09.02 - Hypoxemia Status: Acute (6) Diabetes mellitus: Code(s): E11.9 - Type 2 diabetes mellitus without complications Status: Acute Plan This is an 88-year-old male who presented to the ED with generalized weakness possible fever concern for infection and altered mental status. He also reported some mild cough. On ED arrival he was tachycardic blood pressure optimal no hypoxia overall with no focal neurological deficit. Right lung examination with mild crackles. Pinpoint lesion on thickened skin around his scrotum which has been ongoing for several years. This Has been draining for some time. Wound culture obtained from this area. He laboratory evaluation revealed leukocytosis 13.4 hemoglobin 11.7 metabolic acidosis with bicarb 15 blood sugar of 282 lactic acid was elevated at 6.6 CRP 25.3 LFTs mildly elevated. Chest x-ray with no acute cardiopulmonary disease. Urinalysis was suggestive of UTI with more than 100 RBC and more than 100 WBC. EKG showed sinus tachycardia with multiple PVC. No acute ST-T changes noted. Presentation suggestive of sepsis most likely with UTI/scrotal cellulitis/abscess and chronic ulceration IV fluid resuscitation received in the ER will continue with IV fluids lactic acid continues to improve. Blood culture has been obtained stent positive for Gram-negative bacilli. Repeat blood culture pending. Urine culture has been sent. Continue with vancomycin and ceftriaxone. Stopped vancomycin IV. Continue on ceftriaxone 2 g daily. Proteus mirabilis is susceptible to ceftriaxone. Wound culture from scrotal wound is also growing Proteus mirabilis indicating his bacteremia could be from scrotal source rather than urine. 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 Urology consulted. He has chronic right hydrocele. Wound culture growing Proteus mirabilis as well. Sensitive to ceftriaxone. Urine culture negative. Blood culture x2 is also growing Proteus mirabilis. Urology on board contemplating surgical exploration Hypertension on lisinopril hydrochlorothiazide which will be held Hypoxia new since admission suspected fluid overload with initial fluid resuscitation. Received diuresis once. Continue taper oxygen 11/13; Patient taken to the OR today for debridement of scrotal abscess. Scrotal wound culture growing Proteus as is his blood culture. Urine culture negative. It appears the source of bacteremia is from the scrotal wound. Appreciate Urology input. Continue IV antibiotics. Continue Lantus and NovoLog. Chest x-ray was clear on admission but did show dependent atelectasis in lung bases on the CT scan. Repeat chest x-ray again showed mild airspace opacities in the lower lung zones likely edema. He received 1 dose of IV Lasix 3 days ago. Will check BNP. Check echo. Repeat x-ray in the morning. 11/14: Repeat CXR showing bibasilar airspace disase atelectasis vs PNA and small pleural effusion. Echo showing EF 55-60 with Grade I diastolic dysfunction and small pericardial effusion. BNP 3160. WBC tredning down. Check COVID given recent cold symptoms. Will give IV Lasix and monitor SpO2 and clinically. Continue IV abx. Follow DVT prophylaxis Lovenox Code status do not resuscitate Subjective Date/time seen: 11/15/23 17:30 Interval history: 88yo male with DM here for weakness Co
[2023-11-15] MEDS: FUROSEMIDE INJ 40 MG/4 ML VIAL IV PUSH (17:54)
[2023-11-15 18:52] LABS: Influenza A QL RT-PCR Negative (Negative); Influenza B QL RT-PCR Negative (Negative); RSV RNA, RT-PCR Negative (Negative); SARS-CoV-2 RNA PCR Negative (Negative)
[2023-11-15 20:06] LABS: Glucose Point of Care 197 mg/dl (65-105)
[2023-11-16] VITALS (9 sets, daily range): BP systolic 129–158; BP diastolic 74–80; PULSE 84–107; RESP 18–22; TEMP 36.2–36.6; O2SAT 91–94
[2023-11-16] MEDS: IPRATROPIUM 0.5 MG/ALBUTEROL SULFATE 2.5 MG AMPUL.NEB 3 ML INHALATION ×3 (01:52→14:09)
[2023-11-16 06:28] LABS: Hematocrit 37.3 % (42.0-52.0); Hemoglobin 11.6 g/dL (14.0-18.0); Mean Corpuscular HGB Conc 31.1 g/dl (32-36); Mean Corpuscular Volume 86.9 fl (80-100); Platelet Count Result 389 k/mm3 (150-375); Red Blood Count 4.29 M/mm3 (4.6-6.20); Red Cell Distribution Width 16.2 % (11.5-14.5); White Blood Count 9.6 K/mm3 (4.5-10.0)
[2023-11-16 06:36] LABS: Anion Gap 3 mmol/L (4-12); Blood Urea Nitrogen 22 mg/dL (9-20); Calcium 7.9 mg/dL (8.4-10.2); Carbon Dioxide 27 mmol/L (22-30); Chloride 106 mmol/L (98-107); Estimated CRCL calculation 58 ml/min; Estimated Glomerular Filt Rate > 60; Glucose 203 mg/dL (65-110); Potassium 3.4 mmol/L (3.4-5.0); Sodium 136 mmol/L (137-145)
[2023-11-16 07:27] LABS: Glucose Point of Care 208 mg/dl (65-105)
--- NOTE | 2023-11-16 09:40 | WPDUROPN2 ---
Progress Note: A&P Assessment and Plan (1) Scrotal abscess: Code(s): N49.2 - Inflammatory disorders of scrotum Status: Acute Assessment and Plan: S/p I&D, right hydrocelectomy/pyocelectomy/orchiectomy on 11/14/[address] Navarro WBC has normalized Continue wet to dry dressing changes q12h [place] drain removed today without difficulty Will continue hernandez catheter x1 week Will arrange outpt f/u for hernandez removal and wound evaluation Okay for discharge from urologic standpoint Subjective Subjective Date/Time Seen: 11/16/23 09:40 Interval history: Sadiq is doing fair today. He does complain of abdominal pain and bloating today. No nausea or vomiting. He has no scrotal pain. No issues with his hernandez catheter. Scrotal drain removed this morning without difficulty and he tolerated well. Repeat blood cultures negative to date. Intraoperative wound culture negative to date. Review of Systems Review of Systems: All systems reviewed & are unremarkable except as noted in HPI and below Exam Narrative: General: Awake, alert, comfortable, no acute distress HEENT: Normocephalic, atraumatic, sclerae anicteric Respiratory: Normal respiratory effort, no accessory muscle use Abdomen: Nondistended, soft, nontender : wearing scrotal support, hernandez catheter draining clear yellow urine, scrotum is packed with scant serosanguinous discharge, nontender to palpation Skin: Normal coloration, warm and dry Neurologic: No focal neuro deficits noted Psychiatric: Appropriate mood and affect, judgment and insight intact Objective Data Vital Signs Vital Signs: Vital Signs - 24 hr 11/15/23 12:58 11/15/23 13:05 11/15/23 14:00 Temperature 98 F Pulse Rate 80 81 75 Respiratory Rate 18 18 18 Blood Pressure 120/60 Pulse Oximetry 93 Oxygen Delivery 11/15/23 14:39 11/15/23 20:13 11/15/23 20:22 Temperature 98.4 F Pulse Rate 91 83 81 Respiratory Rate 18 18 18 Blood Pressure 125/58 L Pulse Oximetry 92 Oxygen Delivery 11/15/23 21:12 11/15/23 20:00 11/16/23 01:53 Temperature 98.3 F Pulse Rate 74 84 Respiratory Rate 20 18 Blood Pressure 127/61 Pulse Oximetry 90 Oxygen Delivery Room Air 11/16/23 02:06 11/16/23 05:57 11/16/23 07:38 Temperature 97.2 F L Pulse Rate 84 88 Respiratory Rate 18 22 H Blood Pressure 158/80 H Pulse Oximetry 94 91 Oxygen Delivery Room Air 11/16/23 07:38 11/16/23 07:48 Temperature Pulse Rate 91 94 Respiratory Rate 18 18 Blood Pressure Pulse Oximetry Oxygen Delivery Intake/Output Intake/Output: Intake & Output 11/13/23 11/14/23 11/15/23 11/16/23 23:59 23:59 23:59 23:59 Intake Total 235 891 4173 Output Total 1200 1225 1300 1800 Balance -900 -645 772 -1800 Meds/Results Medications: Active Medications Generic Name Dose Route Start Last Admin Trade Name Freq PRN Reason Stop Dose Admin Acetaminophen 650 mg 11/10/23 18:27 Acetaminophen 325 Mg Tablet PO Q6H PRN Mild Pain (1-3) or Fever Albuterol/Ipratropium 3 ml 11/11/23 20:00 11/16/23 07:37 Ipratropium 0.5 Mg/Albuterol Sulfate 2.5 Mg Ampul.Neb 3 Ml INHALATION 3 ml Q6HRT CHAVO Administration Dextrose 12.5 gm 11/10/23 14:13 Dextrose 50% 25 Gm/50 Ml Syringe IV PUSH PRN PRN Hypoglycemia Protocol Enoxaparin Sodium 40 mg 11/11/23 09:00 11/15/23 10:10 Enoxaparin 40 Mg/0.4 Ml Syringe SUB-Q 40 mg DAILY CHAVO Administration Glucagon 1 mg 11/10/23 14:13 Glucagon For Inj 1 Mg Vial IM PRN PRN Hypoglycemia Protocol Glucose 15 gm 11/10/23 14:13 Glucose Oral Gel 15 Gm Of Glucse In 37.5 Gm Tube PO PRN PRN Hypoglycemia Protocol Dextrose 1,000 mls @ 100 mls/hr 11/10/23 14:13 Dextrose 5% 1,000 Ml IVPB PRN PRN Hypoglycemia Protocol Ceftriaxone Sodium 2 gm in 100 mls @ 200 mls/hr 11/12/23 09:00 11/15/23 10:40 Rocephin 2 Gm/Ns 100 Ml IVPB Infused
[2023-11-16] MEDS: metFORMIN HCL 500 MG TABLET 1000 MG PO (10:10)
[2023-11-16] MEDS: POTASSIUM CHLORIDE 20 MEQ ER TABLET 40 MEQ PO (10:10)
[2023-11-16] MEDS: INSULIN ASPART (*BKC) 100 UNITS/ML SUB-Q ×2 (10:10→13:11)
[2023-11-16] MEDS: INSULIN ASPART (*BKC) 100 UNITS/ML 8 UNITS SUB-Q ×2 (10:11→13:12)
[2023-11-16] MEDS: cefTRIAXone 2 GM/NS 100 ML 2 GM/100 ML BAG IVPB (10:11)
[2023-11-16] MEDS: ENOXAPARIN 40 MG/0.4 ML SYRINGE SUB-Q (10:12)
[2023-11-16] MEDS: INSULIN GLARGINE (*BKC) 100 UNITS/ML 18 UNITS SUB-Q (10:23)
[2023-11-16 12:13] LABS: Glucose Point of Care 237 mg/dl (65-105)
[2023-11-16 16:25] LABS: Glucose Point of Care 186 mg/dl (65-105)
--- NOTE | 2023-11-16 17:22 | PM.IMPN ---
Progress Note: A&P Assessment and Plan (1) Sepsis: Code(s): A41.9 - Sepsis, unspecified organism Status: Acute (2) Acute UTI: Code(s): N39.0 - Urinary tract infection, site not specified Status: Acute (3) Scrotal abscess: Code(s): N49.2 - Inflammatory disorders of scrotum Status: Acute (4) Hydrocele in adult: Code(s): N43.3 - Hydrocele, unspecified Status: Acute (5) Hypoxia: Code(s): R09.02 - Hypoxemia Status: Acute (6) Diabetes mellitus: Code(s): E11.9 - Type 2 diabetes mellitus without complications Status: Acute (7) Ileus: Code(s): K56.7 - Ileus, unspecified Status: Acute Plan This is an 88-year-old male who presented to the ED with generalized weakness possible fever concern for infection and altered mental status. He also reported some mild cough. On ED arrival he was tachycardic blood pressure optimal no hypoxia overall with no focal neurological deficit. Right lung examination with mild crackles. Pinpoint lesion on thickened skin around his scrotum which has been ongoing for several years. This Has been draining for some time. Wound culture obtained from this area. He laboratory evaluation revealed leukocytosis 13.4 hemoglobin 11.7 metabolic acidosis with bicarb 15 blood sugar of 282 lactic acid was elevated at 6.6 CRP 25.3 LFTs mildly elevated. Chest x-ray with no acute cardiopulmonary disease. Urinalysis was suggestive of UTI with more than 100 RBC and more than 100 WBC. EKG showed sinus tachycardia with multiple PVC. No acute ST-T changes noted. Presentation suggestive of sepsis most likely with UTI/scrotal cellulitis/abscess and chronic ulceration IV fluid resuscitation received in the ER will continue with IV fluids lactic acid continues to improve. Blood culture has been obtained stent positive for Gram-negative bacilli. Repeat blood culture pending. Urine culture has been sent. Continue with vancomycin and ceftriaxone. Stopped vancomycin IV. Continue on ceftriaxone 2 g daily. Proteus mirabilis is susceptible to ceftriaxone. Wound culture from scrotal wound is also growing Proteus mirabilis indicating his bacteremia could be from scrotal source rather than urine. 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 Urology consulted. He has chronic right hydrocele. Wound culture growing Proteus mirabilis as well. Sensitive to ceftriaxone. Urine culture negative. Blood culture x2 is also growing Proteus mirabilis. Urology on board contemplating surgical exploration Hypertension on lisinopril hydrochlorothiazide which will be held Hypoxia new since admission suspected fluid overload with initial fluid resuscitation. Received diuresis once. Continue taper oxygen 11/13; Patient taken to the OR today for debridement of scrotal abscess. Scrotal wound culture growing Proteus as is his blood culture. Urine culture negative. It appears the source of bacteremia is from the scrotal wound. Appreciate Urology input. Continue IV antibiotics. Continue Lantus and NovoLog. Chest x-ray was clear on admission but did show dependent atelectasis in lung bases on the CT scan. Repeat chest x-ray again showed mild airspace opacities in the lower lung zones likely edema. He received 1 dose of IV Lasix 3 days ago. Will check BNP. Check echo. Repeat x-ray in the morning. 11/14: Repeat CXR showing bibasilar airspace disase atelectasis vs PNA and small pleural effusion. Echo showing EF 55-60 with Grade I diastolic dysfunction and small pericardial effusion. BNP 3160. WBC tredning down. Check COVID given recent cold symptoms. Will give IV Lasix and monitor SpO2 and clinically. Continue IV abx. Follow 11/15: Abd more distended this morning. KUB showing ileus. He is having BMs and no nausea or vo
--- NOTE | 2023-11-16 18:45 | PC.NURSE ---
On 11/16/23, the TRACTOR TRAILER OPERATOR, Nohemi, provided care and [facility]. I have reviewed the TRACTOR TRAILER OPERATOR's documentation and agree with the findings.
[2023-11-16] MEDS: BISACODYL 10 MG SUPPOSITORY RECTAL (18:50)
[2023-11-16 20:09] LABS: Glucose Point of Care 164 mg/dl (65-105)
[2023-11-17 05:46] VITALS: BP 143/72; PULSE 84; RESP 20; TEMP 36.2; O2SAT 94
[2023-11-17 06:25] LABS: Basophils Percent Auto 0.3 % (0.2-1.2); Eosinophils Absolute Auto 0.2 K/mm3 (0-0.3); Eosinophils Percent Auto 2.1 % (0-4.4); Hematocrit 37.5 % (42.0-52.0); Hemoglobin 11.5 g/dL (14.0-18.0); Immature Granulocyte Absolute 0.07 K/mm3 (0.00-0.031); Immature Granulocyte Percent A 0.8 % (0-0.5); Lymphocytes Absolute Auto 1.11 K/mm3 (0.9-3.2); Lymphocytes Percent Auto 12.5 % (18.3-44.2); Mean Corpuscular HGB Conc 30.7 g/dl (32-36); Mean Corpuscular Hemoglobin 26.9 pg (26-34); Mean Corpuscular Volume 87.8 fl (80-100); Mean Platelet Volume 11.7 fl (7.4-10.4); Monocytes Absolute Auto 0.7 K/mm3 (0.1-0.6); Neutrophils Absolute Auto 6.8 K/mm3 (1.3-6.7); Neutrophils Percent Auto 76.3 % (45.5-73.1); Platelet Count Result 400 k/mm3 (150-375); Red Blood Count 4.27 M/mm3 (4.6-6.20); Red Cell Distribution Width 16.2 % (11.5-14.5); White Blood Count 8.9 K/mm3 (4.5-10.0)
[2023-11-17 06:38] LABS: Alanine Aminotransferase 23 U/L (6-50); Albumin Level 2.9 g/dL (3.5-5.1); Alkaline Phosphatase 97 U/L (38-126); Anion Gap 5 mmol/L (4-12); Aspartate Amino Transferase 28 U/L (17-59); Bilirubin,Total 0.7 mg/dL (0.2-1.3); Blood Urea Nitrogen 20 mg/dL (9-20); Calcium 8.2 mg/dL (8.4-10.2); Carbon Dioxide 24 mmol/L (22-30); Chloride 108 mmol/L (98-107); Estimated CRCL calculation 58 ml/min; Estimated Glomerular Filt Rate > 60; Glucose 163 mg/dL (65-110); Magnesium 2.2 mg/dL (1.6-2.3); Phosphorus 3.2 mg/dL (2.5-4.5); Potassium 3.5 mmol/L (3.4-5.0); Sodium 137 mmol/L (137-145)
[2023-11-17 07:42] LABS: Glucose Point of Care 159 mg/dl (65-105)
[2023-11-17] MEDS: POTASSIUM CHLORIDE 20 MEQ PACKET (FOR LIQUID) 40 MEQ PO (09:27)
[2023-11-17] MEDS: ENOXAPARIN 40 MG/0.4 ML SYRINGE SUB-Q (09:28)
[2023-11-17] MEDS: INSULIN GLARGINE (*BKC) 100 UNITS/ML 18 UNITS SUB-Q (09:29)
[2023-11-17] MEDS: cefTRIAXone 2 GM/NS 100 ML 2 GM/100 ML BAG IVPB (09:29)
[2023-11-17] MEDS: BISACODYL 10 MG SUPPOSITORY RECTAL (09:29)
[2023-11-17 11:44] LABS: Glucose Point of Care 243 mg/dl (65-105)
[2023-11-17] MEDS: FLUTICASONE PROPIONATE 0.05% NA SPR 16 GM BTL (*BKC) 2 SPRAY NASAL (12:48)
[2023-11-17] MEDS: INSULIN ASPART (*BKC) 100 UNITS/ML SUB-Q ×2 (12:48→17:08)
--- NOTE | 2023-11-17 13:30 | PCPTNOTE ---
Attempted x 3 patient unable today
[2023-11-17 14:00] VITALS: BP 124/49; PULSE 88; RESP 18; TEMP 36.5; O2SAT 97
--- NOTE | 2023-11-17 16:28 | PM.IMPN ---
Progress Note: A&P Assessment and Plan (1) Sepsis: Code(s): A41.9 - Sepsis, unspecified organism Status: Acute (2) Ileus: Code(s): K56.7 - Ileus, unspecified Status: Acute (3) Acute UTI: Code(s): N39.0 - Urinary tract infection, site not specified Status: Acute (4) Scrotal abscess: Code(s): N49.2 - Inflammatory disorders of scrotum Status: Acute (5) Hydrocele in adult: Code(s): N43.3 - Hydrocele, unspecified Status: Acute (6) Hypoxia: Code(s): R09.02 - Hypoxemia Status: Acute (7) Diabetes mellitus: Code(s): E11.9 - Type 2 diabetes mellitus without complications Status: Acute (8) CHF (congestive heart failure): Code(s): I50.9 - Heart failure, unspecified Status: Acute Plan This is an 88-year-old male who presented to the ED with generalized weakness possible fever concern for infection and altered mental status. He also reported some mild cough. On ED arrival he was tachycardic blood pressure optimal no hypoxia overall with no focal neurological deficit. Right lung examination with mild crackles. Pinpoint lesion on thickened skin around his scrotum which has been ongoing for several years. This Has been draining for some time. Wound culture obtained from this area. He laboratory evaluation revealed leukocytosis 13.4 hemoglobin 11.7 metabolic acidosis with bicarb 15 blood sugar of 282 lactic acid was elevated at 6.6 CRP 25.3 LFTs mildly elevated. Chest x-ray with no acute cardiopulmonary disease. Urinalysis was suggestive of UTI with more than 100 RBC and more than 100 WBC. EKG showed sinus tachycardia with multiple PVC. No acute ST-T changes noted. Presentation suggestive of sepsis most likely with UTI/scrotal cellulitis/abscess and chronic ulceration IV fluid resuscitation received in the ER will continue with IV fluids lactic acid continues to improve. Blood culture has been obtained stent positive for Gram-negative bacilli. Repeat blood culture pending. Urine culture has been sent. Continue with vancomycin and ceftriaxone. Stopped vancomycin IV. Continue on ceftriaxone 2 g daily. Proteus mirabilis is susceptible to ceftriaxone. Wound culture from scrotal wound is also growing Proteus mirabilis indicating his bacteremia could be from scrotal source rather than urine. 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 Urology consulted. He has chronic right hydrocele. Wound culture growing Proteus mirabilis as well. Sensitive to ceftriaxone. Urine culture negative. Blood culture x2 is also growing Proteus mirabilis. Urology on board contemplating surgical exploration Hypertension on lisinopril hydrochlorothiazide which will be held Hypoxia new since admission suspected fluid overload with initial fluid resuscitation. Received diuresis once. Continue taper oxygen 11/13; Patient taken to the OR today for debridement of scrotal abscess. Scrotal wound culture growing Proteus as is his blood culture. Urine culture negative. It appears the source of bacteremia is from the scrotal wound. Appreciate Urology input. Continue IV antibiotics. Continue Lantus and NovoLog. Chest x-ray was clear on admission but did show dependent atelectasis in lung bases on the CT scan. Repeat chest x-ray again showed mild airspace opacities in the lower lung zones likely edema. He received 1 dose of IV Lasix 3 days ago. Will check BNP. Check echo. Repeat x-ray in the morning. 11/14: Repeat CXR showing bibasilar airspace disase atelectasis vs PNA and small pleural effusion. Echo showing EF 55-60 with Grade I diastolic dysfunction and small pericardial effusion. BNP 3160. WBC tredning down. Check COVID given recent cold symptoms. Will give IV Lasix and monitor SpO2 and clinically. Continue I
[2023-11-17 16:32] LABS: Glucose Point of Care 298 mg/dl (65-105)
[2023-11-17 19:42] LABS: Glucose Point of Care 217 mg/dl (65-105)
[2023-11-17 19:56] VITALS: BP 127/56; PULSE 79; RESP 16; TEMP 36.6; O2SAT 96
--- NOTE | 2023-11-17 19:59 | PC.NURSE ---
I have reviewed and agree with Nohemi's findings.
[2023-11-18 05:56] VITALS: BP 140/65; PULSE 72; RESP 18; TEMP 36.3; O2SAT 92
[2023-11-18 06:59] LABS: Albumin Level 2.9 g/dL (3.5-5.1); Anion Gap 2 mmol/L (4-12); Blood Urea Nitrogen 13 mg/dL (9-20); Calcium 8.1 mg/dL (8.4-10.2); Carbon Dioxide 28 mmol/L (22-30); Chloride 108 mmol/L (98-107); Estimated CRCL calculation 65 ml/min; Estimated Glomerular Filt Rate > 60; Glucose 119 mg/dL (65-110); Magnesium 2.1 mg/dL (1.6-2.3); Phosphorus 3.2 mg/dL (2.5-4.5); Potassium 3.3 mmol/L (3.4-5.0); Sodium 138 mmol/L (137-145)
[2023-11-18 07:35] LABS: Glucose Point of Care 143 mg/dl (65-105)
[2023-11-18 08:00] VITALS: PULSE 77; RESP 20; O2SAT 95
[2023-11-18] MEDS: cefTRIAXone 2 GM/NS 100 ML 2 GM/100 ML BAG IVPB (08:55)
[2023-11-18] MEDS: INSULIN GLARGINE (*BKC) 100 UNITS/ML 18 UNITS SUB-Q (08:55)
[2023-11-18] MEDS: POTASSIUM CHLORIDE 20 MEQ PACKET (FOR LIQUID) 40 MEQ PO (08:55)
[2023-11-18] MEDS: FLUTICASONE PROPIONATE 0.05% NA SPR 16 GM BTL (*BKC) 2 SPRAY NASAL (08:55)
[2023-11-18] MEDS: ENOXAPARIN 40 MG/0.4 ML SYRINGE SUB-Q (08:55)
[2023-11-18] MEDS: BISACODYL 10 MG SUPPOSITORY RECTAL (08:55)
[2023-11-18 10:22] VITALS: O2SAT 93
[2023-11-18 11:18] LABS: Glucose Point of Care 208 mg/dl (65-105)
--- NOTE | 2023-11-18 11:32 | PM.IMPN ---
Progress Note: A&P Assessment and Plan (1) Sepsis: Code(s): A41.9 - Sepsis, unspecified organism Status: Acute Assessment and Plan: Patient presented to the ED with generalized weakness, cough, possible fever and altered mental status. Sepsis on admission with tachycardic, eelvated lactic acid to 6.6 and leukocytosis. CRP 25. CXR no acute cardiopulmonary disease. Urinalysis was suggestive of UTI IV fluid resuscitation received in the ER. Started on IV abx. UCx negative BCx growing Proteus in both sets. Scrotal wound culture groiwng Proteus and Group B Strept. Repeat BCx negative. Appreciate urology input. Continue abx (2) Ileus: Code(s): K56.7 - Ileus, unspecified Status: Acute Assessment and Plan: Patient wsa noted to have mildly distended abdomen but abd more distended on 11/15. KUB showing ileus. He is having BMs and no nausea or vomiting. Changed to clear liquids. Suppositories ordered. Increased activity. Repeat KUB showing no change but he clinically is better. Will advance diet as toelrated. Continue to walk in halls (3) Acute UTI: Code(s): N39.0 - Urinary tract infection, site not specified Status: Acute Assessment and Plan: UTI ruled out. Presentation suggestive of sepsis most likely from scrotal cellulitis/abscess and chronic ulceration (4) Scrotal abscess: Code(s): N49.2 - Inflammatory disorders of scrotum Status: Acute Assessment and Plan: Patient with small lesion on thickened skin around his scrotum which has been ongoing for several years. This has been draining for some time. Wound culture obtained from this area were positive for proteus. BCx also positive for Proteus. Scrotal US shownig 5.9cm hyper echo echo mass in the right scrotum left sided orchitis. Urology consulted. Patient taken to the OR 11/13 for debridement of scrotal abscess. Continue antibiotics. Continue dressing changes (5) Hydrocele in adult: Code(s): N43.3 - Hydrocele, unspecified Status: Acute Assessment and Plan: Patient with a moderate-size uncomplicated right hydrocele with debris. Deferred to urology. (6) Diabetes mellitus: Code(s): E11.9 - Type 2 diabetes mellitus without complications Status: Acute Assessment and Plan: A1c at 8.4. The patient's blood glucose was reviewed on 11/17 Glucose remains well controlled. Continue AccuCheks covering with sliding scale. Hypoglycemia protocol available as needed. Continue to monitor (7) CHF (congestive heart failure): Code(s): I50.9 - Heart failure, unspecified Status: Acute Assessment and Plan: Chest x-ray was clear on admission but did show dependent atelectasis in lung bases on the CT scan. Repeat chest x-ray again showed mild airspace opacities in the lower lung zones likely edema. He received 1 dose of IV Lasix early in his admission. Echo showing EF 55-60 with Grade I diastolic dysfunction and small pericardial effusion. BNP 3160. He received intermittent doses of Lasix with good response Able to wean off o2. No Empagliflozin given ongoing urologic infection. Continue to monitor (8) Hypoxia: Code(s): R09.02 - Hypoxemia Status: Acute Assessment and Plan: Related to above. Patient has been weaned to room air. Plan DVT prophylaxis Lovenox Code status do not resuscitate Subjective Date/time seen: 11/18/23 11:32 Interval history: 88yo male with DM here for weakness Patient still with diarrhea. No melena hematochezia. His abdomen feels better today and is decreased in size. Tolerating clear liquids without nausea or vomiting. No scrotal pain. Exam Narrative: AF 97.3 140/65 72 18 93% ra Gen - NARD Chest - CTA bilaterally, nml RR CV - RRR S1/S2 Abd -abdomen is soft and less distended - Saunders secured draining clear yellow urine. Jock strap in place. Ex
[2023-11-18] MEDS: INSULIN ASPART (*BKC) 100 UNITS/ML SUB-Q (12:09)
[2023-11-18 14:00] VITALS: BP 117/62; PULSE 77; RESP 20; TEMP 36.4; O2SAT 95
[2023-11-18 16:22] LABS: Glucose Point of Care 120 mg/dl (65-105)
[2023-11-18 20:18] LABS: Glucose Point of Care 154 mg/dl (65-105)
[2023-11-18 20:41] VITALS: BP 133/67; PULSE 73; RESP 17; TEMP 36.6; O2SAT 95
[2023-11-19 05:27] VITALS: BP 141/66; PULSE 75; RESP 17; TEMP 36.3; O2SAT 96
[2023-11-19 07:00] LABS: Basophils Percent Auto 0.4 % (0.2-1.2); Eosinophils Absolute Auto 0.1 K/mm3 (0-0.3); Eosinophils Percent Auto 1.2 % (0-4.4); Hemoglobin 10.8 g/dL (14.0-18.0); Immature Granulocyte Absolute 0.04 K/mm3 (0.00-0.031); Immature Granulocyte Percent A 0.5 % (0-0.5); Lymphocytes Percent Auto 14.8 % (18.3-44.2); Mean Corpuscular HGB Conc 30.9 g/dl (32-36); Mean Corpuscular Hemoglobin 27.1 pg (26-34); Mean Corpuscular Volume 87.7 fl (80-100); Mean Platelet Volume 11.1 fl (7.4-10.4); Monocytes Absolute Auto 0.5 K/mm3 (0.1-0.6); Monocytes Percent Auto 6.5 % (2.6-8.5); Neutrophils Absolute Auto 5.7 K/mm3 (1.3-6.7); Neutrophils Percent Auto 76.6 % (45.5-73.1); Platelet Count Result 447 k/mm3 (150-375); Red Blood Count 3.99 M/mm3 (4.6-6.20); White Blood Count 7.4 K/mm3 (4.5-10.0)
[2023-11-19 07:10] LABS: Alanine Aminotransferase 20 U/L (6-50); Albumin Level 2.7 g/dL (3.5-5.1); Alkaline Phosphatase 86 U/L (38-126); Anion Gap 4 mmol/L (4-12); Aspartate Amino Transferase 25 U/L (17-59); Bilirubin,Total 0.5 mg/dL (0.2-1.3); Blood Urea Nitrogen 11 mg/dL (9-20); Calcium 7.8 mg/dL (8.4-10.2); Carbon Dioxide 24 mmol/L (22-30); Chloride 107 mmol/L (98-107); Estimated CRCL calculation 65 ml/min; Estimated Glomerular Filt Rate > 60; Glucose 121 mg/dL (65-110); Magnesium 2.1 mg/dL (1.6-2.3); Phosphorus 3.2 mg/dL (2.5-4.5); Potassium 3.3 mmol/L (3.4-5.0); Sodium 135 mmol/L (137-145)
[2023-11-19 08:00] VITALS: PULSE 75; RESP 17; O2SAT 96
[2023-11-19 08:07] LABS: Glucose Point of Care 131 mg/dl (65-105)
[2023-11-19] MEDS: ENOXAPARIN 40 MG/0.4 ML SYRINGE SUB-Q (08:28)
[2023-11-19] MEDS: POTASSIUM CHLORIDE 20 MEQ PACKET (FOR LIQUID) 40 MEQ PO (08:28)
[2023-11-19] MEDS: cefTRIAXone 2 GM/NS 100 ML 2 GM/100 ML BAG IVPB (08:28)
[2023-11-19] MEDS: FLUTICASONE PROPIONATE 0.05% NA SPR 16 GM BTL (*BKC) 2 SPRAY NASAL (08:29)
[2023-11-19] MEDS: POTASSIUM CHLORIDE 20 MEQ PACKET (FOR LIQUID) PO (08:30)
[2023-11-19] MEDS: INSULIN GLARGINE (*BKC) 100 UNITS/ML 18 UNITS SUB-Q (08:30)
--- NOTE | 2023-11-19 09:50 | WPDUROPN2 ---
Progress Note: A&P Assessment and Plan (1) Scrotal abscess: Code(s): N49.2 - Inflammatory disorders of scrotum Status: Acute Assessment and Plan: S/p I&D, right hydrocelectomy/pyocelectomy/orchiectomy on 11/14/[address] Navarro [place] drain removed 11/16/23 without difficulty WBC has normalized Continue wet to dry dressing changes q12h Will continue hernandez catheter x1 week and f/u as an outpatient for hernandez removal and wound evaluation Okay for discharge from urologic standpoint Subjective Subjective Date/Time Seen: 11/19/23 09:50 Interval history: Sadiq is feeling well today. Reports improvement in his abdominal pain and bloating. He is getting out of bed. He denies any scrotal pain. Still using scrotal support and tolerating well. Tolerating dressing changes well. Denies nausea, vomiting, fever, chills. Remains afebrile. WBC 7.4. Review of Systems Review of Systems: All systems reviewed & are unremarkable except as noted in HPI and below Exam Narrative: General: Awake, alert, comfortable, no acute distress HEENT: Normocephalic, atraumatic, sclerae anicteric Respiratory: Normal respiratory effort, no accessory muscle use Abdomen: Nondistended, soft, nontender : wearing scrotal support, scrotum is covered with dressing that is clean and dry, hernandez catheter draining clear yellow urine Skin: Normal coloration, warm and dry Neurologic: No focal neuro deficits noted Psychiatric: Appropriate mood and affect, judgment and insight intact Objective Data Vital Signs Vital Signs: Vital Signs - 24 hr 11/18/23 10:22 11/18/23 14:00 11/18/23 20:41 Temperature 97.5 F L 97.9 F Pulse Rate 77 73 Respiratory Rate 20 17 Blood Pressure 117/62 133/67 Pulse Oximetry 93 95 95 Oxygen Delivery Room Air 11/19/23 05:27 Temperature 97.4 F L Pulse Rate 75 Respiratory Rate 17 Blood Pressure 141/66 H Pulse Oximetry 96 Oxygen Delivery Intake/Output Intake/Output: Intake & Output 11/16/23 11/17/23 11/18/23 11/19/23 23:59 23:59 23:59 23:59 Intake Total 360 1608 1648 400 Output Total 3050 900 950 600 Balance -2690 708 698 -200 Meds/Results Medications: Active Medications Generic Name Dose Route Start Last Admin Trade Name Freq PRN Reason Stop Dose Admin Acetaminophen 650 mg 11/10/23 18:27 Acetaminophen 325 Mg Tablet PO Q6H PRN Mild Pain (1-3) or Fever Albuterol/Ipratropium 3 ml 11/16/23 18:41 Ipratropium 0.5 Mg/Albuterol Sulfate 2.5 Mg Ampul.Neb 3 Ml INHALATION Q6HRT PRN Shortness Of Breath Or Wheezing Amoxicillin/Clavulanate Potassium 1 tablet 11/17/23 09:00 Amoxicillin/Clavulanate K 875-125 Mg Tab PO Q12HR CHAVO Dextrose 12.5 gm 11/10/23 14:13 Dextrose 50% 25 Gm/50 Ml Syringe IV PUSH PRN PRN Hypoglycemia Protocol Enoxaparin Sodium 40 mg 11/11/23 09:00 11/19/23 08:28 Enoxaparin 40 Mg/0.4 Ml Syringe SUB-Q 40 mg DAILY CHAVO Administration Fluticasone Propionate 2 spray 11/16/23 13:00 11/19/23 08:29 Fluticasone Propionate 0.05% Na Spr 16 Gm Btl (*Bkc) NASAL 2 spray QAM CHAVO Administration Glucagon 1 mg 11/10/23 14:13 Glucagon For Inj 1 Mg Vial IM PRN PRN Hypoglycemia Protocol Glucose 15 gm 11/10/23 14:13 Glucose Oral Gel 15 Gm Of Glucse In 37.5 Gm Tube PO PRN PRN Hypoglycemia Protocol Dextrose 1,000 mls @ 100 mls/hr 11/10/23 14:13 Dextrose 5% 1,000 Ml IVPB PRN PRN Hypoglycemia Protocol Ceftriaxone Sodium 2 gm in 100 mls @ 200 mls/hr 11/17/23 09:00 11/19/23 08:28 Rocephin 2 Gm/Ns 100 Ml IVPB 200 mls/hr Q24H CHAVO Administration Insulin Aspart 2 - 5 units 11/10/23 17:00 11/19/23 08:25 Insulin Aspart (*Bkc) 100 Units/Ml SUB-Q Not Given TIDWM CHAVO Protocol Insulin Aspart 8 units 11/16/23 08:00 11/16/23 17:40 Insulin Aspart (*Bkc) 100 Units/Ml SUB-Q Not Given TIDWM CHAVO Insulin Glargine 18 uni
[2023-11-19 11:56] LABS: Glucose Point of Care 220 mg/dl (65-105)
[2023-11-19] MEDS: INSULIN ASPART (*BKC) 100 UNITS/ML SUB-Q (12:01)
--- NOTE | 2023-11-19 13:15 | PM.DS ---
DS: Admitting Diagnosis Discharge Date 11/19/23 Admitting Diagnosis Weakness DS: Discharge Diagnosis Discharge Diagnosis (1) Sepsis: Code(s): A41.9 - Sepsis, unspecified organism Status: Acute (2) Ileus: Code(s): K56.7 - Ileus, unspecified Status: Acute (3) Acute UTI: Code(s): N39.0 - Urinary tract infection, site not specified Status: Acute (4) Scrotal abscess: Code(s): N49.2 - Inflammatory disorders of scrotum Status: Acute (5) Hydrocele in adult: Code(s): N43.3 - Hydrocele, unspecified Status: Acute (6) Diabetes mellitus: Code(s): E11.9 - Type 2 diabetes mellitus without complications Status: Acute (7) CHF (congestive heart failure): Code(s): I50.9 - Heart failure, unspecified Status: Acute (8) Hypoxia: Code(s): R09.02 - Hypoxemia Status: Acute DS: Summary Hospital Course Reason for hospitalization: 88yo male with DM here for weakness. Please see H&P for details Hospital Course: Patient presented to the ED with generalized weakness, cough, possible fever and altered mental status.? Sepsis on admission with tachycardic, elevated lactic acid to 6.6 and leukocytosis. CRP 25. CXR no acute cardiopulmonary disease.? Urinalysis was suggestive of UTI. IV fluid resuscitation received in the ER. Started on IV abx. UCx negative. BCx growing Proteus in both sets. Scrotal wound culture growing Proteus and Group B Strept. Repeat BCx negative. Patient with small lesion on thickened skin around his scrotum which has been ongoing for several years.? This has been draining for some time.? Scrotal US showing 5.9cm hyperechoic mass in the right scrotum left sided orchitis. Patient also with a moderate-size uncomplicated right hydrocele with debris. Urology consulted and appreciate their input.?Patient taken to the OR 11/13 for debridement of scrotal abscess.?Patient was noted to have mildly distended abdomen post-operatively but became more distended on 11/15. KUB showing ileus. He was having BMs and no nausea or vomiting. He was changed to clear liquids. Suppositories ordered. We increased his activity. Repeat KUB showing no change but he clinically was much better. He continued to pass liquid stool. He denied nausea. His diet was advanced and he tolerated this well. For his DM, his A1c at 8.4.? The patient's blood glucose was monitored with AccuCheks covering with sliding scale.? Hypoglycemia protocol was available as needed.?Chest x-ray was clear on admission but did show dependent atelectasis in lung bases on the CT scan.? Repeat chest x-ray showed mild airspace opacities in the lower lung zones likely edema.? He received 1 dose of IV Lasix early in his admission.?He developed an oxygen requirement. Echo showing EF 55-60 with Grade I diastolic dysfunction and small pericardial effusion. BNP 3160. He received intermittent doses of Lasix with good response. Suspect he had acute diastolic CHF. Able to wean off oxygen. No Empagliflozin given ongoing urologic infection. He remained stable off Lasix. He has been up ambulating in the halls with walker. he overall did well and was able to be discharged home on 11/19/23. Status at Discharge Cognitive/behavioral status at discharge: Stable Time Spent with Patient Time attestation: Total time spent providing and/or coordinating discharge services: 38 minutes Time spent: Greater than 30 minutes Exam Narrative: AF 97.4 141/66 75 17 96% ra Gen - NARD sitting up in chair Chest - CTA bilaterally, nml RR CV - RRR S1/S2 Abd -abdomen is soft and much less distended, +BS - Saunders secured draining clear yellow urine. Jock strap in place. Ext - No pedal edema Psych - Nml mood and affect Skin - Warm and dry DS: Data Data Completed and Pending Completed studies during hospitalization: Pending at discharge 11/14/23 14:32 Surgical [PTH] Routine Labs on day of discharge:
[2023-11-19 14:00] VITALS: BP 119/52; PULSE 86; RESP 18; TEMP 35.9; O2SAT 97
== END 2023-11-19 16:37 | disposition home or self-care (01) | DRG 853 ==
LOC: ANHED 10:08 → ANHIMU 10:29 → ANH3MEDSUR 11-13 13:51
PROVIDERS: Urology; Admitting Provider Internal Medicine; Emergency Provider Emergency Medicine; Visit Provider Internal Medicine
PROC: 0VT90ZZ Resection of Right Testis, Open Approach (ICD-10-PCS; CPT 54700; principal; 2023-11-14 13:30)
DX: A41.9 Sepsis, unspecified organism (principal); I50.31 Acute diastolic (congestive) heart failure; K56.7 Ileus, unspecified; N39.0 Urinary tract infection, site not specified; N50.89 Other specified disorders of the male genital organs; N49.2 Inflammatory disorders of scrotum; B96.4 Proteus (mirabilis) (morganii) as the cause of diseases classified elsewhere; N43.3 Hydrocele, unspecified; B95.1 Streptococcus, group B, as the cause of diseases classified elsewhere; E11.9 Type 2 diabetes mellitus without complications; I11.0 Hypertensive heart disease with heart failure; R09.02 Hypoxemia; Z66 Do not resuscitate; Z87.891 Personal history of nicotine dependence
CPT/HCPCS: 36415; 71045; 71046; 74019; 74177; 76870; 80048; 80053; 80069; 81001; 82948; 83036; 83605; 83735; 83880; 84100; 84153; 84154; 84443; 85025; 85027; 85610; 85730; 86140; 87040; 87070; 87075; 87077; 87086; 87088; 87186; 87205; 87637; 88305; 93005; 93306; 93976; 94640; 96365; 96375; 97110; 97116; 97161; 97165; 97530; 97535; 99285; A9270; J0330; J0696; J1100; J1170; J1650; J1815; J1940; J2405; J2704; J3010; J3370; J7120; Q9967

== ENCOUNTER 2023-11-26 14:29 | Outpatient (CLI) | payer MEDICARE, SELFPAY ==
[2023-11-26 15:34] LABS: Anion Gap 6 mmol/L (4-12); Blood Urea Nitrogen 14 mg/dL (9-20); Calcium 9.2 mg/dL (8.4-10.2); Carbon Dioxide 28 mmol/L (22-30); Chloride 105 mmol/L (98-107); Estimated Glomerular Filt Rate > 60; Glucose 166 mg/dL (65-110); Potassium 3.5 mmol/L (3.4-5.0); Sodium 139 mmol/L (137-145)
== END 2023-11-26 14:30 | disposition home or self-care (01) ==
LOC: ANHLAB 14:31
PROVIDERS: Visit Provider Internal Medicine
DX: I50.9 Heart failure, unspecified (principal)
CPT/HCPCS: 36415; 80048

== ENCOUNTER 2024-01-09 10:46 | Inpatient (IN) | payer MEDICARE, SELFPAY ==
--- NOTE | ~2024-01-09 | US_ITS ---
EXAMINATION: US scrotum doppler DATE: 01/09/2024 12:33 INDICATION: Testicular pain. TECHNIQUE: Grayscale and Doppler ultrasound images of the testes were obtained. COMPARISON: Ultrasound 11/13/2023 FINDINGS: The right testis is absent. The left testis measures 2.3 x 2.2 x 2.6 cm. There is normal va scular flow in left testis. Left epididymis is enlarged and hyperemic, consistent with epididymitis. There is a small left hydrocele. IMPRESSION: 1. Left-sided epididymitis. 2. Small left hydrocele. 3. Right orchiectomy. Reviewed, dictated and finalized at location A.
[2024-01-09 11:07] VITALS: BP 104/81; PULSE 78; RESP 17; TEMP 36.4; O2SAT 99
--- NOTE | 2024-01-09 12:05 | ED.GENADULT ---
HPI - General Adult General Chief complaint: Unspecified Stated complaint: pain in groin Time Seen by Provider: 01/09/24 11:57 History of Present Illness HPI narrative: Patient is an 88-year-old male with history of CHF, diabetes here with left testicular pain. Patient was hospitalized from November 09- November 18. While he was in the hospital, on 11/14/23 he underwent I&D of scrotal abscess, scrotal exploration with right hydrocelectomy/pyeocelectomy/orchectomy. He followed up with Dr. Navarro in office about 3 weeks ago and at that time there was concern that his left testicle could now be infected due to some tenderness. He was started on ciprofloxacin. While on ciprofloxacin he believes the symptoms somewhat improved however patient notes that the left testicular pain began to worsen again a couple of days ago. This morning it became severe. They did try to contact the urology office, they recommended he come into the ER for evaluation. He denies fever or chills. He denies dysuria. No abdominal pain. No trauma. He does note that he has had ongoing diarrhea since mid October. It was initially liquid in nature, now describes it as ranging from a gel like consistency to a bit firmer. Of note, he does have a follow up appointment scheduled with Dr. Navarro at the urology office tomorrow. Related Data Home Medications Medication Instructions Recorded Confirmed lisinopril 10 1 tablet PO DAILY 11/10/23 01/09/24 mg-hydrochlorothiazide 12.5 mg tablet Allergies Allergy/AdvReac Type Severity Reaction Status Date / Time gabapentin Allergy Numbness Verified 01/09/24 11:35 Review of Systems Review of Systems: All systems reviewed & are unremarkable except as noted in HPI and below PMFSH Past Medical History Medical History CHF (congestive heart failure) Diabetes mellitus HTN (hypertension) Hydrocele in adult Ileus (10/2023) Melanoma Scrotal abscess (10/2023) Surgical History Surgical History History of orchiectomy, unilateral (11/14/23) right hydrocelectom/pyocelectomy/orchiectomy Family History Family History Father Prostate carcinoma Sibling Diabetes mellitus Social History Social History Smoking status: Former smoker Second hand tobacco smoke exposure: No Additional smoking assessment comments: Pt smoked when he was 16 years old off and on Alcohol intake: never Substance use: never Substance use type: does not use Do You Feel Safe in your Home?: Yes Lack of Transportation: No Lack of Food: Never True Current Housing: I Have Housing Concerned About Future Housing: No Difficulty Paying Gas/Electric Bills: No Difficulty Paying for Meds: No Currently Unemployed: No Education: Don't Know Difficulty w/ Childcare or Family Care: No Spiritual care concerns: No Exam Narrative: GENERAL: Well-appearing, well-nourished, and in no acute distress. HEAD: Normocephalic, atraumatic. EYES: PERRLA and EOMI. ENT: Nares clear. Mucous membranes moist. NECK: Supple. CHEST: Clear to auscultation. No respiratory distress. HEART: Regular rate and rhythm. Normal peripheral pulses. ABDOMEN: Soft, nontender, nondistended. : Exam performed by the tech as digital asset coordinator. Patient has posterior tenderness to the left testicle, no overlying skin changes or draining sinuses appreciated. EXTREMITIES: Normal range of motion. No edema. SKIN: Warm, dry, no rash. NEURO: No focal deficits. Alert and oriented x3. PSYCH: Normal mood and affect. Course Course Emergency Course: Chart review performed. Patient here with left testicular pain since this morning. Triage vitals normal. Hospitalization in October 2023, had been admitted for a scrotal abscess, I&D performed by Dr. Navarro on 10/22
[2024-01-09 14:13] LABS: Basophils Absolute Auto 0.1 K/mm3 (0.0-0.1); Basophils Percent Auto 0.6 % (0.2-1.2); Eosinophils Absolute Auto 0.3 K/mm3 (0-0.3); Eosinophils Percent Auto 2.6 % (0-4.4); Hematocrit 38.4 % (42.0-52.0); Hemoglobin 12.2 g/dL (14.0-18.0); Immature Granulocyte Absolute 0.05 K/mm3 (0.00-0.031); Immature Granulocyte Percent A 0.5 % (0-0.5); Lymphocytes Absolute Auto 1.24 K/mm3 (0.9-3.2); Lymphocytes Percent Auto 11.9 % (18.3-44.2); Mean Corpuscular HGB Conc 31.8 g/dl (32-36); Mean Corpuscular Hemoglobin 27.7 pg (26-34); Mean Corpuscular Volume 87.3 fl (80-100); Mean Platelet Volume 11.3 fl (7.4-10.4); Monocytes Absolute Auto 0.9 K/mm3 (0.1-0.6); Monocytes Percent Auto 8.9 % (2.6-8.5); Neutrophils Absolute Auto 7.8 K/mm3 (1.3-6.7); Neutrophils Percent Auto 75.5 % (45.5-73.1); Platelet Count Result 301 k/mm3 (150-375); Red Cell Distribution Width 16.5 % (11.5-14.5); White Blood Count 10.4 K/mm3 (4.5-10.0)
[2024-01-09 14:20] VITALS: BP 121/48; PULSE 75; RESP 16; O2SAT 97
[2024-01-09 14:24] LABS: Lactic Acid Reflex 2.1 mmol/L (0.7-2.0)
[2024-01-09 14:26] LABS: Alanine Aminotransferase 13 U/L (6-50); Albumin Level 3.2 g/dL (3.5-5.1); Alkaline Phosphatase 50 U/L (38-126); Anion Gap 6 mmol/L (4-12); Aspartate Amino Transferase 16 U/L (17-59); Bilirubin,Total 0.4 mg/dL (0.2-1.3); Blood Urea Nitrogen 20 mg/dL (9-20); CRP 4.6 mg/dL (<1.0); Calcium 8.6 mg/dL (8.4-10.2); Carbon Dioxide 26 mmol/L (22-30); Chloride 107 mmol/L (98-107); Estimated CRCL calculation 56 ml/min; Estimated Glomerular Filt Rate > 60; Glucose 211 mg/dL (65-110); Potassium 3.3 mmol/L (3.4-5.0); Sodium 139 mmol/L (137-145)
[2024-01-09 14:27] LABS: INR 1.1; Prothrombin Time 14.2 Seconds (11.1-14.7)
[2024-01-09 14:28] LABS: Partial Thromboplastin Time 28.7 Seconds (22.3-36.8)
[2024-01-09 15:18] LABS: Appearance Urine Clear (Clear); Bacteria Urine None Seen /hpf; Bilirubin Urine Negative (Negative); Blood Urine Negative (Negative); Color Urine Yellow (Yellow); Glucose Urine UA 2+ mg/dL (Negative); Ketones Urine Negative (Negative); Leukocyte Esterase Ur 2+ LEU/UL (Negative); Nitrate Urine Negative (Negative); Non Pathogenic Casts 0-2; Protein Urine Negative (Negative); RBC Urine 0-2 /hpf (0-2); Specific Grav Ur 1.019 (1.001-1.035); Squamous Epithelial Cell Urine None Seen /hpf (Few); Urobilinogen Urine 0.2 mg/dL (<2.0)
[2024-01-09 15:22] LABS: Add Urine Microscopic? YES
[2024-01-09 15:55] VITALS: BP 134/65; PULSE 72; RESP 18; O2SAT 97
--- NOTE | 2024-01-09 16:02 | WPDURCON ---
Assessment and Plan Assessment and plan (1) Left epididymitis: Code(s): N45.1 - Epididymitis Status: Acute Assessment and Plan: Recently completed 10 day course of Cipro, completed on 12/31/2023. Now having worsened left testicular pain. Scrotal ultrasound demonstrates persistent left-sided epididymitis with small left hydrocele. Remains afebrile, vital signs stable, lab workup unremarkable Continue empiric antibiotics. Will make NPO at midnight in the event surgical intervention is required if lack of improvement Continue with scrotal support, elevation, analgesics (2) Scrotal abscess: Code(s): N49.2 - Inflammatory disorders of scrotum Status: Resolved Assessment and Plan: Recent history of right scrotal abscess s/p incision and drainage, right hydrocelectomy/pyocelectomy/orchiectomy on 11/14/2023 (3) Abnormal urinalysis: Code(s): R82.90 - Unspecified abnormal findings in urine Status: Acute Assessment and Plan: UA slightly abnormal. Patient reports no acute UTI symptoms. Continue empiric antibiotics as above while awaiting urine culture results Urology Consult Note HPI Date Seen: 01/09/24 Primary Care Provider: UNKNOWN,DOCTOR Consult Narrative Narrative: Sadiq Bennett is a 88 year old male with a history of right scrotal abscess who underwent recent I and D, hydrocelectomy and orchiectomy on 11/14/2023. He had been following up with Dr. Navarro and was most recently seen on 12/21/2023. At that time, the right scrotum was well-healed but he was noted to have findings consistent with left epididymitis and was given a 10 day course of Cipro. He completed this about 1.5 weeks ago but reported little to no improvement in his symptoms. He had been having vague left testicular pain that had improved with NSAIDs. Unfortunately, this morning, his left pain worsened significantly. He endorse 10/10 left throbbing testicular pain with some associated dizziness. Denied nausea, vomiting, fever, or chills. No dysuria, hematuria, urgency, or frequency. He reports that he has been having diarrhea intermittently since his initial admission in October given ongoing need for antibiotics. On arrival to the emergency department, his vital signs were stable and he was afebrile, WBC minimally elevated at 10.4, lactic acid minimally elevated at 2.1, CRP 4.6, UA with 2+ leukocytes and 11-20 WBC. Urine culture is pending at this time. Scrotal ultrasound was completed which shows absent right testis, normal flow of left testis with evidence of left epididymitis and small left hydrocele. The patient reports pain is improved at this time though he is still quite tender. Review of Systems Review of Systems: All systems reviewed & are unremarkable except as noted in HPI and below PMFSH Past Medical History Medical History (Updated 01/09/24 @ 16:10 by Marika Vaughan PA-C) CHF (congestive heart failure) Diabetes mellitus Family History Family History Father Prostate carcinoma Sibling Diabetes mellitus Social History Social History Smoking status: Former smoker Tobacco type: cigarettes Second hand tobacco smoke exposure: No Additional smoking assessment comments: Pt smoked when he was 16 years old off and on Alcohol intake: never Substance use: never Substance use type: does not use Do You Feel Safe in your Home?: Yes Lack of Transportation: No Lack of Food: Never True Current Housing: I Have Housing Concerned About Future Housing: No Difficulty Paying Gas/Electric Bills: No Difficulty Paying for Meds: No Currently Unemployed: No Education: Don't Know Difficulty w/ Childcare or Family Care: No Spiritual care concerns: No Meds Home Medications and Allergies Home Medications Medication Instructions Recorded Confirmed Type empagliflozin 10 mg tablet 1
[2024-01-09] MEDS: SODIUM CHLORIDE 0.9% IV 1,000 ML 999 ML IV CONT (16:03)
[2024-01-09 16:28] LABS: Toxigenic C. Diff POSITIVE (NEGATIVE)
[2024-01-09 17:11] LABS: Reflex Lactic Acid Yes or No Add Lactic
--- NOTE | 2024-01-09 17:28 | ADMGEN ---
This patient, Sadiq Bennett, was admitted to Medical Room 247-. Patient/family oriented to hospital policies and general routines including ID bracelet, bed and alarms, visiting hours, pain management, procedures, bathroom and other care routines, personal items, smoking policy, room service/diet, and visiting hours. Information on how to activate the Rapid Response Team has been discussed. Patient/Family are encouraged to report perceived risks to care and to ask questions if they do not understand what they are told or what they should do.
[2024-01-09 17:41] VITALS: BMI 26.8
[2024-01-09] MEDS: DOXYCYCLINE 100 MG/NS 100 ML 100 MG/100 ML BAG IVPB (17:48)
[2024-01-09] MEDS: POTASSIUM BICARBONATE 25 MEQ TABEF 50 MEQ PO (17:49)
--- NOTE | 2024-01-09 18:56 | PC.NURSE ---
Provider aware of loose stools. Pt on isolation at this time for CDiff
--- NOTE | 2024-01-09 19:15 | PM.IMHP ---
H&P: HPI History of Present Illness Date/Time: 01/09/24 19:15 Chief Complaint: Testicular Pain Narrative: 88 y/o M presents here with testicular pain with PMH of scrotal abscess (11/10/23), HTN, DM2, and melanoma (s/p excision and lymph node removal from [facility], now has lymphedema). The patient presents here from home for further evaluation of left testicular pain. The pain has been ongoing since the end of November. He has been following with Urology, Melanie CORDOBA, with last appt on 12/21/2023. He had pain on exam at that time, scrotum appeared well healed, and was diagnosed with left epididymitis based on his exam. Patient reports he did not have pain prior to the appt and that it was discovered when the provider physically examined him. He was started on Cipro 500 mg b.i.d. times 10 days which he completed on 12/31/2023. Since then he has had little improvement in his testicular pain. Patient elected to seek care today because the testicular pain significantly worsened around 0300, improved slightly with ibuprofen, and is accompanied by one episode of brief dizziness. Denies anal intercourse or new partners. He is also reporting diarrhea intermittently since his admission in October of 2023 for a scrotal abscess which had been present several months prior to seeking care. Imaging during that admission included a scrotal ultrasound which showed a 5.9 cm hyperechoic mass in the right scrotum, left-sided orchitis, and moderate sized uncomplicated right hydrocele with debris. He underwent an I&D and a right hydrocelectom/pyocelectomy/orchiectomy. Empagliflozin was discontinued. Postprocedure, patient did develop an ileus which was treated conservatively (fluids, increasing activity, suppositories). The intermittent diarrhea is not accompanied by abdominal pain, nausea, vomiting, fever, or body aches. On average has been having 3 BMs per day. Initial VS at presentation: 97.6? F, HR 78, RR 17, 104/81, and 99% on RA. ED workup showed: WBC 10.4, hemoglobin 12.21 potassium 3.3, creatinine 0.8 and GFR >60, CRP 4.6, UA equivocal. C diff positive. US of the scrotum showed left sided epididymitis, small left hydrocele, and right orchiectomy. Review of Systems Review of Systems: All systems reviewed & are unremarkable except as noted in HPI and below PMFSH Past Medical History Medical History CHF (congestive heart failure) Diabetes mellitus HTN (hypertension) Hydrocele in adult Ileus (10/2023) Melanoma Scrotal abscess (10/2023) Surgical History Surgical History History of orchiectomy, unilateral (11/14/23) right hydrocelectom/pyocelectomy/orchiectomy Family History Family History Father Prostate carcinoma Sibling Diabetes mellitus Social History Social History Smoking status: Former smoker Second hand tobacco smoke exposure: No Additional smoking assessment comments: Pt smoked when he was 16 years old off and on Alcohol intake: never Substance use: never Substance use type: does not use Do You Feel Safe in your Home?: Yes Lack of Transportation: No Lack of Food: Never True Current Housing: I Have Housing Concerned About Future Housing: No Difficulty Paying Gas/Electric Bills: No Difficulty Paying for Meds: No Currently Unemployed: No Education: Don't Know Difficulty w/ Childcare or Family Care: No Spiritual care concerns: No Meds Home Medications and Allergies Home Medications Medication Instructions Recorded Confirmed Type lisinopril 10 1 tablet PO DAILY 11/10/23 01/09/24 History mg-hydrochlorothiazide 12.5 mg tablet blood sugar diagnostic (OneTouch #1 pkg 11/19/23 01/09/24 Rx Verio test strips) blood-glucose meter (OneTouch #1 pkg 11/19/23 01/09/24 Rx Ve
[2024-01-09] MEDS: MORPHINE SULFATE (*CRX) 2 MG/ML INJ IV PUSH (19:44)
[2024-01-09] MEDS: HYDROcodone/acetaminophen (*CRX) 5-325 MG TABLET 1 TAB PO (20:21)
[2024-01-09] MEDS: FIDAXOMICIN 200 MG TABLET PO (20:21)
[2024-01-09 20:25] VITALS: BP 142/70; PULSE 72; RESP 17; TEMP 36.4; O2SAT 97
[2024-01-09 20:25] LABS: Glucose Point of Care 241 mg/dl (65-105)
[2024-01-09 22:49] LABS: Anion Gap 4 mmol/L (4-12); Blood Urea Nitrogen 16 mg/dL (9-20); Carbon Dioxide 27 mmol/L (22-30); Chloride 108 mmol/L (98-107); Estimated CRCL calculation 56 ml/min; Estimated Glomerular Filt Rate > 60; Glucose 179 mg/dL (65-110); Potassium 3.6 mmol/L (3.4-5.0); Sodium 139 mmol/L (137-145)
[2024-01-09 23:11] VITALS: O2SAT 97
[2024-01-10 03:45] LABS: Chlamydia trachomatis NOT DETECTED (NOT DETECTE); Neisseria gonorrhoeae PCR NOT DETECTED (NOT DETECTE)
[2024-01-10 04:10] VITALS: BP 154/70; PULSE 69; RESP 16; TEMP 36.6; O2SAT 99
[2024-01-10 04:26] VITALS: BP 143/56; PULSE 77; RESP 18; TEMP 36.7; O2SAT 96
[2024-01-10] MEDS: DOXYCYCLINE 100 MG/NS 100 ML 100 MG/100 ML BAG IVPB ×2 (04:43→17:55)
[2024-01-10 06:03] LABS: Basophils Absolute Auto 0.1 K/mm3 (0.0-0.1); Basophils Percent Auto 0.8 % (0.2-1.2); Eosinophils Absolute Auto 0.6 K/mm3 (0-0.3); Eosinophils Percent Auto 7.3 % (0-4.4); Hematocrit 36.6 % (42.0-52.0); Immature Granulocyte Absolute 0.04 K/mm3 (0.00-0.031); Immature Granulocyte Percent A 0.5 % (0-0.5); Lymphocytes Absolute Auto 1.63 K/mm3 (0.9-3.2); Lymphocytes Percent Auto 18.7 % (18.3-44.2); Mean Corpuscular HGB Conc 30.1 g/dl (32-36); Mean Corpuscular Hemoglobin 26.7 pg (26-34); Mean Corpuscular Volume 88.8 fl (80-100); Neutrophils Absolute Auto 5.4 K/mm3 (1.3-6.7); Neutrophils Percent Auto 61.7 % (45.5-73.1); Platelet Count Result 294 k/mm3 (150-375); Red Blood Count 4.12 M/mm3 (4.6-6.20); Red Cell Distribution Width 16.6 % (11.5-14.5); White Blood Count 8.7 K/mm3 (4.5-10.0)
[2024-01-10 06:28] LABS: Alanine Aminotransferase 12 U/L (6-50); Albumin Level 2.8 g/dL (3.5-5.1); Alkaline Phosphatase 50 U/L (38-126); Anion Gap 6 mmol/L (4-12); Aspartate Amino Transferase 20 U/L (17-59); Bilirubin,Total 0.1 mg/dL (0.2-1.3); Blood Urea Nitrogen 12 mg/dL (9-20); Calcium 7.3 mg/dL (8.4-10.2); Carbon Dioxide 25 mmol/L (22-30); Chloride 110 mmol/L (98-107); Estimated CRCL calculation 63 ml/min; Estimated Glomerular Filt Rate > 60; Glucose 75 mg/dL (65-110); Magnesium 1.8 mg/dL (1.6-2.3); Potassium 3.3 mmol/L (3.4-5.0); Sodium 141 mmol/L (137-145)
--- NOTE | 2024-01-10 07:17 | PM.IMPN ---
Progress Note: A&P Assessment and Plan (1) Left epididymitis: Code(s): N45.1 - Epididymitis Status: Acute Assessment and Plan: - US scrotum: 1. Left-sided epididymitis. 2. Small left hydrocele. 3. Right orchiectomy. - failed outpatient therapy. Cipro 500 mg BID x 10 days, completed on 12/31/23. - UA: 2+ glucose, 2+ leuks, 11-20 wbc's, no bacteria, no epithelial cells - UC obtained on 01/08 - Urology consulted, Alexus SCOTT. scrotal support, elevation, pain control empiric abx - recent cultures: hydrocele fluid from 11/14/2023: No organisms seen scrotal culture from 11/10/2023: Proteus mirabilis and light growth of group B strep (no reaction to Ancef, otherwise susceptible) blood cultures from 11/10/2023: Proteus mirabilis (no reaction to Ancef, otherwise susceptible) - started on ceftriaxone and doxycycline on 01/08 - add GC testing - trend labs (2) C. difficile diarrhea: Code(s): A04.72 - Enterocolitis due to Clostridium difficile, not specified as recurrent Status: Acute Assessment and Plan: - diarrrhea intermittently since October of 2023 - c. diff + on 01/09/24 - started on Dificid 200 mg BID - IV fluids: 1L bolus (3) Hypokalemia: Code(s): E87.6 - Hypokalemia Status: Acute Assessment and Plan: - K 3.3 - given 50 PO of K Bicarb - monitor - suspect mild hypokalemia secondary to diarrhea (4) Diabetes mellitus: Code(s): E11.9 - Type 2 diabetes mellitus without complications Status: Acute Assessment and Plan: - hypoglycemia protocol - POC blood glucose ACHS - home medication: glimepiride and Januvia- will hold it. - correct regimen ordered - low dose TIDWM and HS - A1C 8.4% on 11/10/2023. (5) CHF (congestive heart failure): Code(s): I50.9 - Heart failure, unspecified Status: Acute Assessment and Plan: - most recent echo (10/2023): normal systolic function, EF estimated at 55-60%, grade 1 diastolic dysfunction. See report for full details. - currently on: HCTZ 12.5 mg daily - daily weights and monitor I&Os - trend renal function (6) HTN (hypertension): Code(s): I10 - Essential (primary) hypertension Status: Acute Assessment and Plan: - chronic, currently 134/65 - continue home medications: lisinopril-HCTZ - monitor Plan Patient here with right testicular pain, ultrasound showing epididymitis. Recently failed outpatient therapy, Cipro b.i.d. times 10 days. Completed course. started on ceftriaxone and doxycycline IVPB. Recent scrotal abscess in October of 2023 with subsequent right orchiectomy. Urology consulted, see note. Patient has also been having intermittent diarrhea since October, tested positive for C diff on 01/08, started on Dificid. Diet: diabetic GI Prophylaxis: not currently indicated DVT Prophylaxis: SCDs Lines: peripheral Code Status: DNR Time Spent With Patient Time with patient: 25 - 35 minutes Subjective Date/time seen: 01/10/24 07:17 Interval history: 88 y/o M admitted with testicular pain with PMH of scrotal abscess (11/10/23), HTN, DM2, and melanoma (s/p excision and lymph node removal from [facility], now has lymphedema). NOte reviewed from h/p: The patient presents here from home for further evaluation of left testicular pain. The pain has been ongoing since the end of November. He has been following with Urology, Melanie CORDOBA, with last appt on 12/21/2023. He had pain on exam at that time, scrotum appeared well healed, and was diagnosed with left epididymitis based on his exam. Patient reports he did not have pain prior to the appt and that it was discovered when the provider physically examined him. He completed Cipro 500 mg b.i.d. times 10 days on 12/31/2023. Since then he has had little improvement in his testicular pain. Patient elected to seek care today because the testicular pain significantly worsened around 0300, improved slightly with ibupr
[2024-01-10 08:21] LABS: Glucose Point of Care 139 mg/dl (65-105)
--- NOTE | 2024-01-10 08:53 | WPDUROPN2 ---
Progress Note: A&P Assessment and Plan (1) Left epididymitis: Code(s): N45.1 - Epididymitis Status: Acute Assessment and Plan: Recently completed 10 day course of Cipro on 12/31/2023. Now having worsened left testicular pain. Scrotal ultrasound demonstrates persistent left-sided epididymitis with small left hydrocele. No evidence of abscess. Remains afebrile, vital signs stable, lab workup unremarkable Continue empiric antibiotics. No indication for acute surgical intervention. Okay to advance diet, will defer diet to primary team given C diff infection Continue with scrotal support, elevation, analgesics (2) Scrotal abscess: Onset Date: 10/2023 Code(s): N49.2 - Inflammatory disorders of scrotum Status: Resolved Assessment and Plan: Recent history of right scrotal abscess s/p incision and drainage, right hydrocelectomy/pyocelectomy/orchiectomy on 11/14/2023 (3) Abnormal urinalysis: Code(s): R82.90 - Unspecified abnormal findings in urine Status: Acute Assessment and Plan: UA slightly abnormal. Patient reports no acute UTI symptoms. Continue empiric antibiotics as above while awaiting urine culture results (4) C. difficile colitis: Code(s): A04.72 - Enterocolitis due to Clostridium difficile, not specified as recurrent Status: Acute Assessment and Plan: On isolation. Continue fidaxomicin and management per primary team Subjective Subjective Date/Time Seen: 01/10/24 08:53 Interval history: Sadiq is feeling slightly improved today. He is having diarrhea and was found to have C diff, is currently on isolation for this. Reports that testicular pain is slightly improved today, currently about 5/10. He notes the pain is slightly worse when having a bowel movement. He denies groin pain, abdominal pain, nausea, vomiting, fever, chills. Voiding without difficulty. Review of Systems Review of Systems: All systems reviewed & are unremarkable except as noted in HPI and below Exam Narrative: General: Awake, alert, comfortable, no acute distress HEENT: Normocephalic, atraumatic, sclerae anicteric Respiratory: Normal respiratory effort, no accessory muscle use Abdomen: Nondistended, soft, nontender : Right testicle absent, left testicle tender to palpation without induration or fluctuance, no drainage or purulence Skin: Normal coloration, warm and dry Neurologic: No focal neuro deficits noted Psychiatric: Appropriate mood and affect, judgment and insight intact Objective Data Vital Signs Vital Signs: Vital Signs - 24 hr 01/09/24 11:07 01/09/24 14:20 01/09/24 15:55 Temperature 97.6 F Pulse Rate 78 75 72 Respiratory Rate 17 16 18 Blood Pressure 104/81 121/48 L 134/65 Pulse Oximetry 99 97 97 Oxygen Delivery Room Air 01/09/24 18:01 01/09/24 20:25 01/09/24 23:11 Temperature 97.6 F Pulse Rate 72 Respiratory Rate 17 Blood Pressure 142/70 H Pulse Oximetry 97 97 Oxygen Delivery Room Air Room Air 01/10/24 04:26 Temperature 98.0 F Pulse Rate 77 Respiratory Rate 18 Blood Pressure 143/56 H Pulse Oximetry 96 Oxygen Delivery Intake/Output Intake/Output: Intake & Output 01/07/24 01/08/24 01/09/24 01/10/24 23:59 23:59 23:59 23:59 Intake Total 1550 100 Output Total 300 Balance 1550 -200 Meds/Results Medications: Active Medications Generic Name Dose Route Start Last Admin Trade Name Freq PRN Reason Stop Dose Admin Acetaminophen 650 mg 01/09/24 19:36 Acetaminophen 325 Mg Tablet PO Q4H PRN Mild Pain (1-3) or Fever Hydrocodone Bitart/Acetaminophen 1 tab 01/09/24 19:36 01/09/24 20:21 Hydrocodone/Acetaminophen (*Crx) 5-325 Mg Tablet PO 1 tab Q4H PRN Administration Pain Rated 4-6 Dextrose 12.5 gm 01/09/24 19:30 Dextrose 50% 25 Gm/50 Ml Syringe IV PUSH PRN PRN Hypoglycemia Protocol Fidaxomicin 200 mg 01/09/24
[2024-01-10] MEDS: lisinopriL 10 MG TABLET PO (08:56)
[2024-01-10] MEDS: FIDAXOMICIN 200 MG TABLET PO ×2 (08:56→20:15)
[2024-01-10] MEDS: hydroCHLOROthiazide 12.5 MG CAPSULE PO (08:56)
[2024-01-10 09:05] VITALS: BP 151/74; PULSE 75; RESP 16; O2SAT 100
[2024-01-10] MEDS: HYDROcodone/acetaminophen (*CRX) 5-325 MG TABLET 1 TAB PO ×2 (10:03→20:15)
[2024-01-10 11:52] LABS: Glucose Point of Care 176 mg/dl (65-105)
[2024-01-10 14:00] VITALS: BP 131/49; PULSE 71; RESP 16; TEMP 36.8; O2SAT 97
[2024-01-10 17:04] LABS: Glucose Point of Care 121 mg/dl (65-105)
[2024-01-10 20:30] VITALS: BP 139/60; PULSE 72; RESP 16; TEMP 36.8; O2SAT 98
[2024-01-10 23:59] LABS: Glucose Point of Care 139 mg/dl (65-105)
[2024-01-11 04:10] VITALS: BP 144/70; PULSE 69; RESP 16; TEMP 36.6; O2SAT 99
[2024-01-11] MEDS: DOXYCYCLINE 100 MG/NS 100 ML 100 MG/100 ML BAG IVPB ×2 (05:57→18:05)
[2024-01-11] MEDS: HYDROcodone/acetaminophen (*CRX) 5-325 MG TABLET 1 TAB PO (06:12)
[2024-01-11 06:24] LABS: Hematocrit 40.2 % (42.0-52.0); Hemoglobin 11.9 g/dL (14.0-18.0); Mean Corpuscular HGB Conc 29.6 g/dl (32-36); Mean Corpuscular Volume 91.4 fl (80-100); Mean Platelet Volume 10.9 fl (7.4-10.4); Platelet Count Result 293 k/mm3 (150-375); Red Cell Distribution Width 16.9 % (11.5-14.5); White Blood Count 7.9 K/mm3 (4.5-10.0)
[2024-01-11 06:32] LABS: Alanine Aminotransferase 14 U/L (6-50); Albumin Level 3.2 g/dL (3.5-5.1); Alkaline Phosphatase 53 U/L (38-126); Anion Gap 4 mmol/L (4-12); Aspartate Amino Transferase 23 U/L (17-59); Bilirubin,Total 0.4 mg/dL (0.2-1.3); Blood Urea Nitrogen 13 mg/dL (9-20); Carbon Dioxide 27 mmol/L (22-30); Chloride 108 mmol/L (98-107); Estimated CRCL calculation 63 ml/min; Estimated Glomerular Filt Rate > 60; Glucose 140 mg/dL (65-110); Potassium 3.8 mmol/L (3.4-5.0); Sodium 139 mmol/L (137-145)
--- NOTE | 2024-01-11 07:55 | PM.IMPN ---
Progress Note: A&P Assessment and Plan (1) Left epididymitis: Code(s): N45.1 - Epididymitis Status: Acute Assessment and Plan: -Recent history of right scrotal abscess s/p incision and drainage, right hydrocelectomy/pyocelectomy/orchiectomy on 11/14/2023 - failed outpatient therapy. Cipro 500 mg BID x 10 days, completed on 12/31/23. - US scrotum: 1. Left-sided epididymitis. 2. Small left hydrocele. 3. Right orchiectomy. - UA: 2+ glucose, 2+ leuks, 11-20 wbc's, no bacteria, no epithelial cells - UC obtained on 01/08 - Urology consulted- follwoing scrotal support, elevation, pain control empiric abx - recent cultures: hydrocele fluid from 11/14/2023: No organisms seen scrotal culture from 11/10/2023: Proteus mirabilis and light growth of group B strep (no reaction to Ancef, otherwise susceptible) blood cultures from 11/10/2023: Proteus mirabilis (no reaction to Ancef, otherwise susceptible) - started on ceftriaxone and doxycycline on 01/08 - add GC testing - trend labs -continue antibiotics and supportive care (2) C. difficile diarrhea: Code(s): A04.72 - Enterocolitis due to Clostridium difficile, not specified as recurrent Status: Acute Assessment and Plan: - diarrrhea intermittently since October of 2023 - c. diff + on 01/09/24 - started on Dificid 200 mg BID - IV fluids: 1L bolus- oral intake adequate -monitor (3) Hypokalemia: Code(s): E87.6 - Hypokalemia Status: Acute Assessment and Plan: - K 3.3 - given 50 PO of K Bicarb - monitor - suspect mild hypokalemia secondary to diarrhea 01/10- 3.8 today- stable- monitor (4) Diabetes mellitus: Code(s): E11.9 - Type 2 diabetes mellitus without complications Status: Acute Assessment and Plan: - hypoglycemia protocol - POC blood glucose ACHS - home medication: glimepiride and Januvia- holding. - correct regimen ordered - low dose TIDWM and HS - A1C 8.4% on 11/10/2023. (5) CHF (congestive heart failure): Code(s): I50.9 - Heart failure, unspecified Status: Acute Assessment and Plan: - most recent echo (10/2023): normal systolic function, EF estimated at 55-60%, grade 1 diastolic dysfunction. See report for full details. - currently on: HCTZ 12.5 mg daily - daily weights and monitor I&Os - trend renal function - f/u oupt with card to optimize CHF regimen (6) HTN (hypertension): Code(s): I10 - Essential (primary) hypertension Status: Acute Assessment and Plan: - chronic, currently 134/65 - continue home medications: lisinopril-HCTZ - monitor Plan Patient here with right testicular pain, ultrasound showing epididymitis. Recently failed outpatient therapy, Cipro b.i.d. times 10 days. Completed course. started on ceftriaxone and doxycycline IVPB. Recent scrotal abscess in October of 2023 with subsequent right orchiectomy. Urology consulted, see note. Patient has also been having intermittent diarrhea since October, tested positive for C diff on 01/08, started on Dificid. Diet: diabetic GI Prophylaxis: not currently indicated DVT Prophylaxis: SCDs Lines: peripheral Code Status: DNR Time Spent With Patient Time with patient: 25 - 35 minutes Subjective Date/time seen: 01/11/24 07:55 Interval history: 88 y/o M admitted with testicular pain with PMH of scrotal abscess (11/10/23), HTN, DM2, and melanoma (s/p excision and lymph node removal from [facility], now has lymphedema). NOte reviewed from h/p: The patient presents here from home for further evaluation of left testicular pain. The pain has been ongoing since the end of November. He has been following with Urology, Melanie CORDOBA, with last appt on 12/21/2023. He had pain on exam at that time, scrotum appeared well healed, and was diagnosed with left epididymitis based on his exam. Patient reports he did not have pain prior to the appt and that it was discovered when the provider physically
[2024-01-11 08:20] LABS: Glucose Point of Care 139 mg/dl (65-105)
[2024-01-11] MEDS: lisinopriL 10 MG TABLET PO (08:52)
[2024-01-11] MEDS: hydroCHLOROthiazide 12.5 MG CAPSULE PO (08:52)
[2024-01-11] MEDS: FIDAXOMICIN 200 MG TABLET PO ×2 (08:52→20:08)
[2024-01-11 12:06] LABS: Glucose Point of Care 170 mg/dl (65-105)
[2024-01-11 13:48] VITALS: BP 140/68; PULSE 71; RESP 17; TEMP 36.5; O2SAT 98
[2024-01-11 17:11] LABS: Glucose Point of Care 224 mg/dl (65-105)
[2024-01-11] MEDS: INSULIN ASPART (*BKC) 100 UNITS/ML SUB-Q (17:19)
[2024-01-11 20:06] VITALS: BP 143/64; PULSE 86; RESP 17; TEMP 36.7; O2SAT 96
[2024-01-11 20:37] LABS: Glucose Point of Care 187 mg/dl (65-105)
[2024-01-12 04:56] LABS: Hematocrit 39.2 % (42.0-52.0); Hemoglobin 12.1 g/dL (14.0-18.0); Mean Corpuscular HGB Conc 30.9 g/dl (32-36); Mean Corpuscular Hemoglobin 26.9 pg (26-34); Mean Corpuscular Volume 87.1 fl (80-100); Mean Platelet Volume 11.1 fl (7.4-10.4); Platelet Count Result 304 k/mm3 (150-375); Red Cell Distribution Width 16.4 % (11.5-14.5); White Blood Count 6.9 K/mm3 (4.5-10.0)
[2024-01-12 05:06] LABS: Alanine Aminotransferase 18 U/L (6-50); Albumin Level 3.1 g/dL (3.5-5.1); Alkaline Phosphatase 54 U/L (38-126); Anion Gap 3 mmol/L (4-12); Aspartate Amino Transferase 22 U/L (17-59); Bilirubin,Total 0.3 mg/dL (0.2-1.3); Blood Urea Nitrogen 16 mg/dL (9-20); Carbon Dioxide 29 mmol/L (22-30); Chloride 107 mmol/L (98-107); Estimated CRCL calculation 56 ml/min; Estimated Glomerular Filt Rate > 60; Glucose 139 mg/dL (65-110); Potassium 3.5 mmol/L (3.4-5.0); Sodium 139 mmol/L (137-145)
[2024-01-12 05:15] VITALS: BP 134/77; PULSE 66; RESP 17; TEMP 36.9; O2SAT 97
[2024-01-12] MEDS: DOXYCYCLINE 100 MG/NS 100 ML 100 MG/100 ML BAG IVPB (05:47)
--- NOTE | 2024-01-12 07:45 | PM.IMPN ---
Progress Note: A&P Assessment and Plan (1) Left epididymitis: Code(s): N45.1 - Epididymitis Status: Acute Assessment and Plan: -Recent history of right scrotal abscess s/p incision and drainage, right hydrocelectomy/pyocelectomy/orchiectomy on 11/14/2023 - failed outpatient therapy. Cipro 500 mg BID x 10 days, completed on 12/31/23. - US scrotum: 1. Left-sided epididymitis. 2. Small left hydrocele. 3. Right orchiectomy. - UA: 2+ glucose, 2+ leuks, 11-20 wbc's, no bacteria, no epithelial cells - UC obtained on 01/08 - Urology consulted- follwoing scrotal support, elevation, pain control empiric abx - recent cultures: hydrocele fluid from 11/14/2023: No organisms seen scrotal culture from 11/10/2023: Proteus mirabilis and light growth of group B strep (no reaction to Ancef, otherwise susceptible) blood cultures from 11/10/2023: Proteus mirabilis (no reaction to Ancef, otherwise susceptible) - started on ceftriaxone and doxycycline on 01/08 - add GC testing - trend labs -continue antibiotics and supportive care (2) C. difficile diarrhea: Code(s): A04.72 - Enterocolitis due to Clostridium difficile, not specified as recurrent Status: Acute Assessment and Plan: - diarrrhea intermittently since October of 2023 - c. diff + on 01/09/24 - started on Dificid 200 mg BID - IV fluids: 1L bolus- oral intake adequate -monitor (3) Hypokalemia: Code(s): E87.6 - Hypokalemia Status: Acute Assessment and Plan: - K 3.3 - given 50 PO of K Bicarb - monitor - suspect mild hypokalemia secondary to diarrhea 01/10- 3.8 today- stable- monitor (4) Diabetes mellitus: Code(s): E11.9 - Type 2 diabetes mellitus without complications Status: Acute Assessment and Plan: - hypoglycemia protocol - POC blood glucose ACHS - home medication: glimepiride and Januvia- holding. - correct regimen ordered - low dose TIDWM and HS - A1C 8.4% on 11/10/2023. (5) CHF (congestive heart failure): Code(s): I50.9 - Heart failure, unspecified Status: Acute Assessment and Plan: - most recent echo (10/2023): normal systolic function, EF estimated at 55-60%, grade 1 diastolic dysfunction. See report for full details. - currently on: HCTZ 12.5 mg daily - daily weights and monitor I&Os - trend renal function - f/u oupt with card to optimize CHF regimen (6) HTN (hypertension): Code(s): I10 - Essential (primary) hypertension Status: Acute Assessment and Plan: - chronic, currently 134/65 - continue home medications: lisinopril-HCTZ - monitor Plan Patient here with right testicular pain, ultrasound showing epididymitis. Recently failed outpatient therapy, Cipro b.i.d. times 10 days. Completed course. started on ceftriaxone and doxycycline IVPB. Recent scrotal abscess in October of 2023 with subsequent right orchiectomy. Urology consulted, see note. Patient has also been having intermittent diarrhea since October, tested positive for C diff on 01/08, started on Dificid. Diet: diabetic GI Prophylaxis: not currently indicated DVT Prophylaxis: SCDs Lines: peripheral Code Status: DNR Subjective Date/time seen: 01/12/24 07:45 Interval history: 88 y/o M admitted with testicular pain with PMH of scrotal abscess (11/10/23), HTN, DM2, and melanoma (s/p excision and lymph node removal from [facility], now has lymphedema). NOte reviewed from h/p: The patient presents here from home for further evaluation of left testicular pain. The pain has been ongoing since the end of November. He has been following with Urology, Melanie CORDOBA, with last appt on 12/21/2023. He had pain on exam at that time, scrotum appeared well healed, and was diagnosed with left epididymitis based on his exam. Patient reports he did not have pain prior to the appt and that it was discovered when the provider physically examined him. He completed Cipro 500 mg b.i.d. times 10 da
[2024-01-12] MEDS: FIDAXOMICIN 200 MG TABLET PO (08:22)
[2024-01-12] MEDS: hydroCHLOROthiazide 12.5 MG CAPSULE PO (08:22)
[2024-01-12] MEDS: SACCHAROMYCES BOULARDII 250 MG CAPSULE PO (08:22)
[2024-01-12] MEDS: lisinopriL 10 MG TABLET PO (08:22)
[2024-01-12 08:30] LABS: Glucose Point of Care 176 mg/dl (65-105)
[2024-01-12 12:05] LABS: Glucose Point of Care 166 mg/dl (65-105)
--- NOTE | 2024-01-12 13:10 | WPDUROPN2 ---
Progress Note: A&P Assessment and Plan (1) Left epididymitis: Code(s): N45.1 - Epididymitis Status: Acute Assessment and Plan: Clinically improving on rocephin and doxycycline. He will need to complete 10 day course of abx. Since failed trial of fluoroquinolones, Dr. Montelongo recommended cefdinir and doxycycline at time of discharge. No indication for acute surgical intervention. Okay to advance diet, will defer diet to primary team given C diff infection Continue with scrotal support, elevation, analgesics (2) Scrotal abscess: Onset Date: 10/2023 Code(s): N49.2 - Inflammatory disorders of scrotum Status: Resolved Assessment and Plan: Recent history of right scrotal abscess s/p incision and drainage, right hydrocelectomy/pyocelectomy/orchiectomy on 11/14/2023 (3) C. difficile colitis: Code(s): A04.72 - Enterocolitis due to Clostridium difficile, not specified as recurrent Status: Acute Assessment and Plan: On isolation. Continue fidaxomicin and management per primary team Subjective Subjective Date/Time Seen: 01/12/24 13:10 Interval history: Doing well. States testicular pain has improved. Diarrhea is improving Review of Systems Review of Systems: All systems reviewed & are unremarkable except as noted in HPI and below Exam Narrative: General: Awake, alert, comfortable, no acute distress HEENT: Normocephalic, atraumatic, sclerae anicteric Respiratory: Normal respiratory effort, no accessory muscle use Abdomen: Nondistended, soft, nontender : Right testicle absent, left testicle with minimal induration; no TTP and no significant erythema of the skin Skin: Normal coloration, warm and dry Neurologic: No focal neuro deficits noted Psychiatric: Appropriate mood and affect, judgment and insight intact Objective Data Vital Signs Vital Signs: Vital Signs - 24 hr 01/11/24 13:48 01/11/24 20:06 01/12/24 05:15 Temperature 36.5 C 36.7 C 36.9 C Pulse Rate 71 86 66 Respiratory Rate 17 17 17 Blood Pressure 140/68 143/64 H 134/77 Pulse Oximetry 98 96 97 Oxygen Delivery 01/12/24 08:20 Temperature Pulse Rate Respiratory Rate Blood Pressure Pulse Oximetry Oxygen Delivery Room Air Intake/Output Intake/Output: Intake & Output 0601/10/24 01/11/24 01/12/24 23:59 23:59 23:59 23:59 Intake Total 1550 1380 1560 690 Output Total 301 Balance 1550 1079 1560 690 Meds/Results Medications: Active Medications Generic Name Dose Route Start Last Admin Trade Name Freq PRN Reason Stop Dose Admin Acetaminophen 650 mg 01/09/24 19:36 Acetaminophen 325 Mg Tablet PO Q4H PRN Mild Pain (1-3) or Fever Hydrocodone Bitart/Acetaminophen 1 tab 01/09/24 19:36 01/11/24 06:12 Hydrocodone/Acetaminophen (*Crx) 5-325 Mg Tablet PO 1 tab Q4H PRN Administration Pain Rated 4-6 Dextrose 12.5 gm 01/09/24 19:30 Dextrose 50% 25 Gm/50 Ml Syringe IV PUSH PRN PRN Hypoglycemia Protocol Fidaxomicin 200 mg 01/09/24 21:00 01/12/24 08:22 Fidaxomicin 200 Mg Tablet PO 200 mg Q12HR CHAVO Administration Glucagon 1 mg 01/09/24 19:30 Glucagon For Inj 1 Mg Vial IM PRN PRN Hypoglycemia Protocol Glucose 15 gm 01/09/24 19:30 Glucose Oral Gel 15 Gm Of Glucse In 37.5 Gm Tube PO PRN PRN Hypoglycemia Protocol Hydrochlorothiazide 12.5 mg 01/10/24 09:00 01/12/24 08:22 Hydrochlorothiazide 12.5 Mg Capsule PO 12.5 mg DAILY CHAVO Administration Ceftriaxone Sodium 1 gm in 50 mls @ 100 mls/hr 01/10/24 16:00 01/11/24 17:49 Rocephin 1 Gm/Ns 50 Ml IVPB Infused Q24H CHAVO Infusion Doxycycline Hyclate 100 mg in 100 mls @ 100 mls/hr 01/09/24 17:00 01/12/24 06:47 Vibramycin 100 Mg/Ns 100 Ml IVPB Infused Q12H CHAVO Infusion Dextrose 1,000 mls @ 100 mls/hr 01/09/24 19:30 Dextrose 5% 1,000 Ml IVPB PRN PRN Hypoglycemia
--- NOTE | 2024-01-12 13:22 | PM.DS ---
DS: Admitting Diagnosis Discharge Date 01/11 Admitting Diagnosis epidermitis, diarrhea DS: Discharge Diagnosis Discharge Diagnosis (1) Left epididymitis: Code(s): N45.1 - Epididymitis Status: Acute Assessment and Plan: -Recent history of right scrotal abscess s/p incision and drainage, right hydrocelectomy/pyocelectomy/orchiectomy on 11/14/2023 - failed outpatient therapy. Cipro 500 mg BID x 10 days, completed on 12/31/23. - US scrotum: 1. Left-sided epididymitis. 2. Small left hydrocele. 3. Right orchiectomy. - UA: 2+ glucose, 2+ leuks, 11-20 wbc's, no bacteria, no epithelial cells - UC obtained on 01/08 - Urology consulted- follwoing scrotal support, elevation, pain control empiric abx - recent cultures: hydrocele fluid from 11/14/2023: No organisms seen scrotal culture from 11/10/2023: Proteus mirabilis and light growth of group B strep (no reaction to Ancef, otherwise susceptible) blood cultures from 11/10/2023: Proteus mirabilis (no reaction to Ancef, otherwise susceptible) - started on ceftriaxone and doxycycline on 01/08 - add GC testing - trend labs -continue antibiotics and supportive care (2) C. difficile diarrhea: Code(s): A04.72 - Enterocolitis due to Clostridium difficile, not specified as recurrent Status: Acute Assessment and Plan: - diarrrhea intermittently since October of 2023 - c. diff + on 01/09/24 - started on Dificid 200 mg BID - IV fluids: 1L bolus- oral intake adequate -monitor (3) Hypokalemia: Code(s): E87.6 - Hypokalemia Status: Acute Assessment and Plan: - K 3.3 - given 50 PO of K Bicarb - monitor - suspect mild hypokalemia secondary to diarrhea 01/10- 3.8 today- stable- monitor (4) Diabetes mellitus: Code(s): E11.9 - Type 2 diabetes mellitus without complications Status: Acute Assessment and Plan: - hypoglycemia protocol - POC blood glucose ACHS - home medication: glimepiride and Januvia- holding. - correct regimen ordered - low dose TIDWM and HS - A1C 8.4% on 11/10/2023. (5) CHF (congestive heart failure): Code(s): I50.9 - Heart failure, unspecified Status: Acute Assessment and Plan: - most recent echo (10/2023): normal systolic function, EF estimated at 55-60%, grade 1 diastolic dysfunction. See report for full details. - currently on: HCTZ 12.5 mg daily - daily weights and monitor I&Os - trend renal function - f/u oupt with card to optimize CHF regimen (6) HTN (hypertension): Code(s): I10 - Essential (primary) hypertension Status: Acute Assessment and Plan: - chronic, currently 134/65 - continue home medications: lisinopril-HCTZ - monitor Plan Final dx: Left-sided epididymitis, C diff Patient here with right testicular pain, ultrasound showing epididymitis. Recently failed outpatient therapy, Cipro b.i.d. times 10 days. Completed course. started on ceftriaxone and doxycycline IVPB. Recent scrotal abscess in October of 2023 with subsequent right orchiectomy. Urology consulted, see note. Patient has also been having intermittent diarrhea since October, tested positive for C diff on 01/08, started on Dificid. Diet: diabetic GI Prophylaxis: not currently indicated DVT Prophylaxis: SCDs Lines: peripheral Code Status: DNR DS: Summary Hospital Course Hospital Course: 88 y/o M admitted with testicular pain with PMH of scrotal abscess (11/10/23), HTN, DM2, and melanoma (s/p excision and lymph node removal from [facility], now has lymphedema). NOte reviewed from h/p: The patient presents here from home for further evaluation of left testicular pain. The pain has been ongoing since the end of November. He has been following with Urology, Melanie CORDOBA, with last appt on 12/21/2023. He had pain on exam at that time, scrotum appeared well healed, and was diagnosed with left epididymitis based on his exam. Patient reports he did not have pain prior to the
== END 2024-01-12 14:10 | disposition home or self-care (01) | DRG 728 ==
LOC: ANHED 12:22 → ANH2MED 16:42
PROVIDERS: Nurse Practitioner; Student in an Organized Health Care Education/Training Program; Admitting Provider Internal Medicine; Emergency Provider Student in an Organized Health Care Education/Training Program; Visit Provider Internal Medicine
DX: N45.1 Epididymitis (principal); A04.72 Enterocolitis due to Clostridium difficile, not specified as recurrent; I11.0 Hypertensive heart disease with heart failure; I50.9 Heart failure, unspecified; I89.0 Lymphedema, not elsewhere classified; N43.3 Hydrocele, unspecified; E11.9 Type 2 diabetes mellitus without complications; E87.6 Hypokalemia; Z85.820 Personal history of malignant melanoma of skin; Z87.891 Personal history of nicotine dependence
CPT/HCPCS: 36415; 76870; 80048; 80053; 81001; 82948; 83605; 83735; 85025; 85027; 85610; 85730; 86140; 87040; 87086; 87491; 87493; 87591; 93976; 96365; 96366; 96367; 96375; 99285; A9270; G0378; J0696; J1815; J2270; J7030

== ENCOUNTER 2024-01-31 13:25 | Observation (INO) | payer MEDICARE, SELFPAY ==
[2024-01-31] VITALS (29 sets, daily range): BP systolic 120–175; BP diastolic 58–79; PULSE 68–94; RESP 12–26; TEMP 36.4–36.9; O2SAT 94–99; BMI 26.7
--- NOTE | ~2024-01-31 | CT_ITS ---
EXAMINATION: CTA chest PE protocol DATE: 01/31/2024 14:57 INDICATION: Acute pulmonary emboli. TECHNIQUE: Computed tomography angiography (CTA) of the chest was performed with 100 mL Omnipaque-350 intravenous contrast timed to evaluate the pulmonary arteries. Coronal maximum intensity projection 3D-reconstructions were created by the technologist. Automated exposure control and iterative reconst ruction technique were employed. The dose-length product was 457.04 mGy-cm. COMPARISON: CT abdomen and pelvis 11/10/2023 FINDINGS: The lungs demonstrate mild atelectasis. No pleural effusion. The heart size is normal. Ther e is a small pericardial effusion. There are coronary artery calcifications. There are acute pulmonar y emboli in the lower lobes and left upper lobe. There are dystrophic calcifications in the liver. Th ere are bridging endplate osteophytes at multiple levels in the spine, consistent with diffuse idiopa thic skeletal hyperostosis (DISH). IMPRESSION: 1. Acute pulmonary emboli in the lower lobes and left upper lobe. 2. Small pericardial effusion. Reviewed, dictated and finalized at location E.
--- NOTE | ~2024-01-31 | US_ITS ---
EXAMINATION: US venous doppler [facility] DATE: 01/31/2024 16:08 INDICATION: Acute pulmonary emboli. TECHNIQUE: Grayscale ultrasound images without and with compression and Doppler ultrasound images of the bilateral lower extremity veins were obtained. COMPARISON: None. FINDINGS: The visualized portions of right popliteal vein, peroneal veins, posterior tibial veins, and greater saphenous vein outflow are patent. There is thrombus in right common femoral vein, profunda femoral v ein, and femoral vein. There is a moderate-sized right Ch's cyst. The visualized portions of left common femoral vein, profunda femoral vein, femoral vein, popliteal v ein, peroneal veins, posterior tibial veins, and greater saphenous vein outflow are patent. IMPRESSION: 1. Acute deep vein thrombosis involving right common femoral vein, profunda femoral vein, and femora l vein. 2. Moderate-sized right Ch's cyst. Reviewed, dictated and finalized at location E. IMPRESSION: 1. Acute deep vein thrombosis involving right common femoral vein, profunda fe moral vein, and femoral vein. 2. Moderate-sized right Ch's cyst.
--- NOTE | 2024-01-31 14:28 | ED.GENADULT ---
HPI - General Adult General Chief complaint: Unspecified Stated complaint: blood spots on lower lungs Time Seen by Provider: 01/31/24 13:58 History of Present Illness HPI narrative: 88-year-old male presents emergency department for evaluation for an outpatient CT scan showing pulmonary embolism. Patient had follow-up with his oncologist yesterday and had a CTA of the chest to evaluate for melanoma and scan was negative for cancer but did show evidence of pulmonary embolisms. Patient was instructed to have follow-up. Patient's primary care physician was not available today so patient present to the emergency department. Patient denies any chest pain or shortness of breath. Patient is not on any blood thinners. Patient denies any prior history of PE or DVT. Related Data Home Medications Medication Instructions Recorded Confirmed lisinopril 10 1 tablet PO DAILY 11/10/23 01/31/24 mg-hydrochlorothiazide 12.5 mg tablet Allergies Allergy/AdvReac Type Severity Reaction Status Date / Time gabapentin Allergy Numbness Verified 01/09/24 11:35 Review of Systems Review of Systems: All systems reviewed & are unremarkable except as noted in HPI and below PMFSH Past Medical History Medical History CHF (congestive heart failure) Diabetes mellitus HTN (hypertension) Hydrocele in adult Ileus (10/2023) Melanoma Scrotal abscess (10/2023) Surgical History Surgical History History of orchiectomy, unilateral (11/14/23) right hydrocelectom/pyocelectomy/orchiectomy Family History Family History Father Prostate carcinoma Sibling Diabetes mellitus Social History Social History Smoking status: Former smoker Second hand tobacco smoke exposure: No Additional smoking assessment comments: Pt smoked when he was 16 years old off and on Alcohol intake: never Substance use: never Substance use type: does not use Do You Feel Safe in your Home?: Yes Lack of Transportation: No Lack of Food: Never True Current Housing: I Have Housing Concerned About Future Housing: No Difficulty Paying Gas/Electric Bills: No Difficulty Paying for Meds: No Currently Unemployed: No Education: Don't Know Difficulty w/ Childcare or Family Care: No Spiritual care concerns: No Exam Narrative: APPEARANCE: Well appearing, no pain, no distress, well-nourished. HEAD: normocephalic, atraumatic. EYES: PERRLA/EOMI, conjunctivae clear. NOSE: Normal no drainage EARS:TMS clear with good light reflex. THROAT: Pharynx clear, no exudate. NECK: Supple. No adenopathy, no masses. RESPIRATORY: Airway patent, respirations nonlabored. Clear to auscultation bilaterally, no rales, rhonchi, wheezing. CARDIOVASCULAR: Regular rate and rhythm without murmurs rubs or gallops. ABDOMINAL: Soft, nontender, nondistended, normal bowel sounds MUSCULOSKELETAL: Moves all extremities. Strength/ROM intact, No edema, No calf tenderness. NEURO: Alert. Cranial nerves II through XII intact. Grossly intact SKIN: Warm, dry. Normal Color Course Course Emergency Course: patient was started on heparin and admitted for pulmonary embolism and DVT. Vital Signs Vital signs: Vital Signs Pulse Rate 94 01/31/24 13:31 Respiratory Rate 14 01/31/24 13:31 Temperature 98.5 F 01/31/24 18:52 Pulse Rate 70 01/31/24 18:52 Respiratory Rate 17 01/31/24 18:52 Blood Pressure 175/73 H 01/31/24 18:52 Pulse Oximetry 98 01/31/24 18:52 Oxygen Delivery Room Air 01/31/24 20:00 Medical Decision Making Vital Signs Vital Signs: Vital Signs Pulse Rate 94 01/31/24 13:31 Respiratory Rate 14 01/31/24 13:31 Temperature 98.5 F 01/31/24 18:52 Pulse Rate 70 01/31/24 18:52 Respiratory Ra
[2024-01-31 14:31] LABS: Basophils Absolute Auto 0.1 K/mm3 (0.0-0.1); Basophils Percent Auto 0.9 % (0.2-1.2); Eosinophils Absolute Auto 0.4 K/mm3 (0-0.3); Eosinophils Percent Auto 5.9 % (0-4.4); Hematocrit 39.1 % (42.0-52.0); Hemoglobin 12.2 g/dL (14.0-18.0); Immature Granulocyte Absolute 0.02 K/mm3 (0.00-0.031); Immature Granulocyte Percent A 0.3 % (0-0.5); Lymphocytes Absolute Auto 1.35 K/mm3 (0.9-3.2); Lymphocytes Percent Auto 19.8 % (18.3-44.2); Mean Corpuscular HGB Conc 31.2 g/dl (32-36); Mean Corpuscular Hemoglobin 27.1 pg (26-34); Mean Corpuscular Volume 86.9 fl (80-100); Mean Platelet Volume 11.7 fl (7.4-10.4); Monocytes Absolute Auto 0.6 K/mm3 (0.1-0.6); Monocytes Percent Auto 8.1 % (2.6-8.5); Neutrophils Absolute Auto 4.4 K/mm3 (1.3-6.7); Platelet Count Result 237 k/mm3 (150-375); Red Cell Distribution Width 16.9 % (11.5-14.5); White Blood Count 6.8 K/mm3 (4.5-10.0)
[2024-01-31 14:41] LABS: Alanine Aminotransferase 14 U/L (6-50); Albumin Level 3.7 g/dL (3.5-5.1); Alkaline Phosphatase 47 U/L (38-126); Anion Gap 7 mmol/L (4-12); Aspartate Amino Transferase 18 U/L (17-59); Bilirubin,Total 0.6 mg/dL (0.2-1.3); Blood Urea Nitrogen 20 mg/dL (9-20); Calcium 8.9 mg/dL (8.4-10.2); Carbon Dioxide 27 mmol/L (22-30); Chloride 105 mmol/L (98-107); Estimated CRCL calculation 56 ml/min; Estimated Glomerular Filt Rate > 60; Glucose 214 mg/dL (65-110); Potassium 3.4 mmol/L (3.4-5.0); Sodium 139 mmol/L (137-145)
[2024-01-31 14:43] LABS: INR 1.1
[2024-01-31 14:44] LABS: Partial Thromboplastin Time 25.7 Seconds (22.3-36.8)
[2024-01-31] MEDS: HEPARIN SOD/D5W 100 UNITS/ML 25,000 UNITS/250 ML BAG 14 UNITS IV CONT (17:03)
[2024-01-31] MEDS: HEPARIN SODIUM 5,000 UNITS/ML VIAL 6500 UNITS IV PUSH (17:03)
[2024-01-31] MEDS: CEFDINIR 300 MG CAPSULE PO (17:58)
--- NOTE | 2024-01-31 18:53 | ADMGEN ---
This patient, Sadiq Bennett, was admitted to Medical Room 254-01. Patient/family oriented to hospital policies and general routines including ID bracelet, bed and alarms, visiting hours, pain management, procedures, bathroom and other care routines, personal items, smoking policy, room service/diet, and visiting hours. Information on how to activate the Rapid Response Team has been discussed. Patient/Family are encouraged to report perceived risks to care and to ask questions if they do not understand what they are told or what they should do.
--- NOTE | 2024-01-31 23:06 | PM.IMHP ---
H&P: HPI History of Present Illness Date/Time: 01/31/24 23:06 Chief Complaint: Abnormal Imaging Narrative: 88-year-old male presents here for further evaluation after abnormal CT scan performed with H of melanoma, chronic lymphedema in RUE, CHF, diabetes, HTN, and scrotal abscess (10/2023). The patient presents here from home for further evaluation due to abnormal CT findings. Patient has an annual CT scan due to history of melanoma (10 years ago). Remains cancer free. CT done on 01/[address] [facility]. Patient was alerted to findings on Sunday. Given that he is asymptomatic he waited to be seen until today (01/30). Continues to deny shortness of breath, shortness of breath with exertion, chest pain, dizziness, tachycardia, palpitations, or syncope. Denies numbness or tingling in the lower extremities, no tenderness in the BLE, no redness or swelling to the LEs. Denies hx of IV drug use, major trauma, hormone replacement therapy, extended travel, smoking, current malignancy, or recent surgery. Had surgery in October in 2023 for a scrotal abscess and had a testicle removed. Also had recent fishing trip 2 weeks ago where he had prolonged sitting for 6 hours. Denies prior history of DVT or PE. Currently on cefdinir for scrotal issues. Initial VS at presentation: 97.6? F, HR 94, RR 14, 149/78, and 98% on RA. ED workup showed: No leukocytosis, hemoglobin 12.2, normal coags, no significant electrolyte derangements, creatinine 0.8 and GFR >60, glucose 214. Chest CTA showed acute PE in the lower lobes and left upper lobe and a small pericardial effusion. U/S of the BLE showed an acute DVT of the right common femoral vein, profunda femoral vein, and from oral pain. Review of Systems Review of Systems: All systems reviewed & are unremarkable except as noted in HPI and below PMFSH Past Medical History Medical History CHF (congestive heart failure) Diabetes mellitus HTN (hypertension) Hydrocele in adult Ileus (10/2023) Melanoma Scrotal abscess (10/2023) Surgical History Surgical History History of orchiectomy, unilateral (11/14/23) right hydrocelectom/pyocelectomy/orchiectomy Family History Family History Father Prostate carcinoma Sibling Diabetes mellitus Social History Social History Smoking status: Former smoker Second hand tobacco smoke exposure: No Additional smoking assessment comments: Pt smoked when he was 16 years old off and on Alcohol intake: never Substance use: never Substance use type: does not use Do You Feel Safe in your Home?: Yes Lack of Transportation: No Lack of Food: Never True Current Housing: I Have Housing Concerned About Future Housing: No Difficulty Paying Gas/Electric Bills: No Difficulty Paying for Meds: No Currently Unemployed: No Education: Don't Know Difficulty w/ Childcare or Family Care: No Spiritual care concerns: No Meds Home Medications and Allergies Home Medications Medication Instructions Recorded Confirmed Type lisinopril 10 1 tablet PO DAILY 11/10/23 01/31/24 History mg-hydrochlorothiazide 12.5 mg tablet blood sugar diagnostic (OneTouch #1 pkg 11/19/23 01/09/24 Rx Verio test strips) blood-glucose meter (OneTouch #1 pkg 11/19/23 01/09/24 Rx Verio Flex Meter) glimepiride 2 mg tablet 2 mg PO QAM #30 tabs 11/19/23 01/31/24 Rx lancets 30 gauge (OneTouch Delica #1 pkg 11/19/23 01/09/24 Rx Plus Lancet) sitagliptin phosphate 25 mg tablet 25 mg PO DAILY #30 tabs 11/19/23 01/31/24 Rx (Januvia) cefdinir 300 mg capsule 300 mg PO Q12H #20 caps 01/12/24 01/31/24 Rx Allergies Allergy/AdvReac Type Severity Reaction Status Date / Time gabapentin Allergy Numbness Verified 01/09/24 11:35 Vital Signs
[2024-02-01] VITALS (8 sets, daily range): BP systolic 128–142; BP diastolic 62–73; PULSE 60–83; RESP 17–18; TEMP 36.3–36.5; O2SAT 96–98
--- NOTE | 2024-02-01 | ECHO_ITS ---
Patient Info Name: Sadiq Bennett Age: 88 years : 1935 Gender: Male Ht: 68 in Wt: 176 lbs BSA: 1.97 m2 HR: 60 bpm BP: 142 / 73 mmHg Heart Rhythm: Sinus Rhythm Technical Quality: Fair Exam Date: 02/01/2024 11:26 AM Exam Location: Echo Lab Patient Status: Outpatient Admit Date: 01/31/2024 Staff Ordering Physician: Serena Hernandez APRN Cost Control Supervisor: Toney Wagner RDCS Attending Provider: Martin Swann MD Referring Physician: David LARSON; Exam Type: CA echo dop color flow w con Study Info Indications - PE Complete two-dimensional, color flow and Doppler transthoracic echocardiogram is performed with contrast to opacify the left ventricle and to improve the deliniation of the left ventricle endocardial borders. Contrast/Agitated Saline Contrast/Ag. Saline: Definity Amount: 4.00 ml Existing IV Access: Yes Summary 1. Definity contrast injected to improve visualization. 2. Left ventricular hypertrophy with normal systolic function and grade 1 diastolic noncompliance. 3. Mild left atrial enlargement. 4. Small circumferential pericardial effusion. 5. Compared to echocardiogram from 11/10/2023, the findings are unchanged. Left Ventricle Left ventricular chamber dimension is normal. Left ventricular systolic function is hyperdynamic, estimated at >70%. There is mild concentric increased left ventricular wall thickness. The left ventricular diastolic function is grade I diastolic dysfunction. Right Ventricle Right ventricular chamber dimension is normal. Left Atria Left atrial chamber dimension is mildly enlarged. Right Atria Right atrial chamber dimension is normal. Aortic Valve The aortic valve is normal. Pulmonic Valve The pulmonic valve is not well visualized. Mitral Valve The mitral valve has normal leaflets. Tricuspid Valve The tricuspid valve leaflets are normal. Pericardium/Pleural There is small circumferential pericardial effusion. Aorta The aortic root size at the sinus of Valsalva is normal. Left Ventricular Outflow Tract Name Value Normal LVOT 2D LVOT Diameter 2.04 cm LVOT Doppler LVOT Peak Gradient 7 mmHg LVOT Mean Gradient 5 mmHg LVOT VTI 31.07 cm LVOT VTI/AV VTI Ratio 0.92 LVOT Stroke Volume 101.84 ml LVOT CO 7.56 l/min LVOT CI 3.84 L/min/m2 Pulmonic Valve Name Value Normal PV Doppler PV Peak Gradient 3 mmHg Mitral Valve Name Value Normal MV Doppler MV Peak Gradient 4 mmHg
[2024-02-01 05:53] LABS: Basophils Absolute Auto 0.1 K/mm3 (0.0-0.1); Basophils Percent Auto 1.4 % (0.2-1.2); Eosinophils Absolute Auto 0.8 K/mm3 (0-0.3); Eosinophils Percent Auto 14.2 % (0-4.4); Hematocrit 39.8 % (42.0-52.0); Hemoglobin 12.2 g/dL (14.0-18.0); Immature Granulocyte Absolute 0.01 K/mm3 (0.00-0.031); Immature Granulocyte Percent A 0.2 % (0-0.5); Lymphocytes Absolute Auto 1.69 K/mm3 (0.9-3.2); Lymphocytes Percent Auto 28.9 % (18.3-44.2); Mean Corpuscular HGB Conc 30.7 g/dl (32-36); Mean Corpuscular Hemoglobin 27.3 pg (26-34); Mean Platelet Volume 11.3 fl (7.4-10.4); Monocytes Absolute Auto 0.7 K/mm3 (0.1-0.6); Neutrophils Absolute Auto 2.5 K/mm3 (1.3-6.7); Neutrophils Percent Auto 43.3 % (45.5-73.1); Platelet Count Result 225 k/mm3 (150-375); Red Blood Count 4.47 M/mm3 (4.6-6.20); Red Cell Distribution Width 17.3 % (11.5-14.5); White Blood Count 5.8 K/mm3 (4.5-10.0)
[2024-02-01 06:04] LABS: Partial Thromboplastin Time 70.8 Seconds (22.3-36.8)
[2024-02-01] MEDS: CEFDINIR 300 MG CAPSULE PO (06:57)
--- NOTE | 2024-02-01 07:28 | PM.IMPN ---
Progress Note: A&P Assessment and Plan (1) Pulmonary embolism: Qualifiers: Pulmonary embolism type: multiple subsegmental (without acute cor pulmonale) Qualified Code(s): I26.94 - Multiple subsegmental pulmonary emboli without acute cor pulmonale Code(s): I26.99 - Other pulmonary embolism without acute cor pulmonale Status: Acute Assessment and Plan: - CTA chest: 1. Acute pulmonary emboli in the lower lobes and left upper lobe. 2. Small pericardial effusion. - started on heparin gtt, trend coags - RF: prolonged sitting 2 weeks ago, surgery in October - monitor hemodynamics - suspect new DVT and PEs due to prolonged sitting during fishing trip 2 weeks ago (2) DVT (deep venous thrombosis): Qualifiers: Affected thrombotic vein of extremity: femoral Chronicity: acute DVT location: lower extremity Laterality: right Qualified Code(s): I82.411 - Acute embolism and thrombosis of right femoral vein Code(s): I82.409 - Acute embolism and thrombosis of unspecified deep veins of unspecified lower extremity Status: Acute Assessment and Plan: - US of BLE: 1. Acute deep vein thrombosis involving right common femoral vein, profunda femoral vein, and femoral vein. 2. Moderate-sized right Ch's cyst. - started on heparin gtt - see above (3) Diabetes mellitus: Qualifiers: Diabetes mellitus complication status: without complication Diabetes mellitus intermediate insulin use: without fixed income analyst use Diabetes mellitus type: type 2 Qualified Code(s): E11.9 - Type 2 diabetes mellitus without complications Code(s): E11.9 - Type 2 diabetes mellitus without complications Status: Chronic Assessment and Plan: - hypoglycemia protocol - POC blood glucose ACHS - home medication: continue glimepiride 2 mg daily and Januvia 25 mg daily - correct regimen ordered - low dose TIDWM and HS - A1C 8.4% in October of 2023 (4) HTN (hypertension): Qualifiers: Hypertension type: primary hypertension Qualified Code(s): I10 - Essential (primary) hypertension Code(s): I10 - Essential (primary) hypertension Status: Chronic Assessment and Plan: - chronic, currently 131/58 - continue home medications: lisinopril-hydrochlorothiazide 10-12.5 mg daily - monitor Plan The patient presents here for further evaluation after chest CTA done Sunday which showed PEs. Chest CT repeated today which showed multiple PEs in the lower lobes and left upper lobe. No hypoxia or hemodynamic instability. Ultrasound of the bilateral lower extremity showed a DVT of the right common femoral vein, profunda femoral vein, and femoral vein. DP pulses intact. Heparin gtt initiated. Suspect new clots due to prolonged sitting during fishing trip 2 weeks ago. Diet: heart healthy GI Prophylaxis: not indicated DVT Prophylaxis: heparin drip Lines: peripheral Code Status: DNR Subjective Date/time seen: 02/01/24 07:28 Interval history: 88-year-old male presents here for further evaluation after abnormal CT scan performed with PMH of melanoma, chronic lymphedema in [place], CHF, diabetes, HTN, and scrotal abscess (10/2023). 01/30: Review of Systems Review of Systems: All systems reviewed & are unremarkable except as noted in HPI and below Exam Narrative: General: well appearing, appears stated age. HEENT: normocephalic, atraumatic. Mucous membranes moist. EOMI, PERRLA, bilateral sclera anicteric, no conjunctival injection. Neck supple without JVD, lymphadenopathy, or bruit. Respiratory: clear to ascultation bilaterally. No rales/rhonic/wheezes. Cardiovascular: Regular rate and rhythm, normal S1-S2 upon ascultation. No murmurs, rubs, or clicks. PMI is nondisplaced, capillary refill less than 3 second. Abdomen: Soft, round, no pulsatile masses, nondistended and nontender. No rebound, no guarding. No CVA tenderness, no hepatosplenomegaly. Bowel so
[2024-02-01 07:59] LABS: Glucose Point of Care 160 mg/dl (65-105)
[2024-02-01] MEDS: APIXABAN 5 MG TABLET 10 MG PO (08:50)
[2024-02-01] MEDS: SITagliptin PHOSPHATE 25 MG TABLET PO (08:51)
[2024-02-01] MEDS: GLIMEPIRIDE 2 MG TABLET PO (08:51)
[2024-02-01] MEDS: lisinopriL 10 MG TABLET PO (08:51)
[2024-02-01] MEDS: hydroCHLOROthiazide 12.5 MG CAPSULE PO (08:52)
[2024-02-01] MEDS: PERFLUTREN LIPID MICROSPHERES 1.5 ML VIAL DILUTED TO 10 ML TOTAL VOLUME IV PUSH (11:56)
--- NOTE | 2024-02-01 11:57 | IVDEFINITY ---
Prior to administration of IV Definity the patient was educated on the risks and benefits of the imaging enhancing agent including potential adverse side effects. The patient verbalized understanding. Allergies were verified. No exclusion criteria were identified and at least one of the following inclusion criteria were met: 1) physician request, 2) patient technically difficult to image (per the [employer] [place] [employer] of Echocardiography guidelines of two or more segments not discernable within the apical view), or 3) questionable left ventricular function. ?
[2024-02-01 12:10] LABS: Glucose Point of Care 208 mg/dl (65-105)
[2024-02-01] MEDS: INSULIN ASPART (*BKC) 100 UNITS/ML SUB-Q (12:15)
--- NOTE | 2024-02-01 16:34 | PM.DS ---
DS: Admitting Diagnosis Discharge Date 02/01/[address] patient was asked to come to the hospital for pulmonary embolism DS: Discharge Diagnosis Discharge Diagnosis (1) Pulmonary embolism: Qualifiers: Pulmonary embolism type: multiple subsegmental (without acute cor pulmonale) Qualified Code(s): I26.94 - Multiple subsegmental pulmonary emboli without acute cor pulmonale Code(s): I26.99 - Other pulmonary embolism without acute cor pulmonale Status: Acute Assessment and Plan: - CTA chest: 1. Acute pulmonary emboli in the lower lobes and left upper lobe. 2. Small pericardial effusion. - started on heparin gtt, trend coags - RF: prolonged sitting 2 weeks ago, surgery in October - monitor hemodynamics - suspect new DVT and PEs due to prolonged sitting during fishing trip 2 weeks ago (2) DVT (deep venous thrombosis): Qualifiers: Affected thrombotic vein of extremity: femoral Chronicity: acute DVT location: lower extremity Laterality: right Qualified Code(s): I82.411 - Acute embolism and thrombosis of right femoral vein Code(s): I82.409 - Acute embolism and thrombosis of unspecified deep veins of unspecified lower extremity Status: Acute Assessment and Plan: - US of BLE: 1. Acute deep vein thrombosis involving right common femoral vein, profunda femoral vein, and femoral vein. 2. Moderate-sized right Ch's cyst. - started on heparin gtt - see above (3) Diabetes mellitus: Qualifiers: Diabetes mellitus type: type 2 Diabetes mellitus predatory animal exterminator insulin use: without predatory animal exterminator use Diabetes mellitus complication status: without complication Qualified Code(s): E11.9 - Type 2 diabetes mellitus without complications Code(s): E11.9 - Type 2 diabetes mellitus without complications Status: Chronic Assessment and Plan: - hypoglycemia protocol - POC blood glucose ACHS - home medication: continue glimepiride 2 mg daily and Januvia 25 mg daily - correct regimen ordered - low dose TIDWM and HS - A1C 8.4% in October of 2023 (4) HTN (hypertension): Qualifiers: Hypertension type: primary hypertension Qualified Code(s): I10 - Essential (primary) hypertension Code(s): I10 - Essential (primary) hypertension Status: Chronic Assessment and Plan: - chronic, currently 131/58 - continue home medications: lisinopril-hydrochlorothiazide 10-12.5 mg daily - monitor Plan The patient presents here for further evaluation after chest CTA done Sunday which showed PEs. Chest CT repeated today which showed multiple PEs in the lower lobes and left upper lobe. No hypoxia or hemodynamic instability. Ultrasound of the bilateral lower extremity showed a DVT of the right common femoral vein, profunda femoral vein, and femoral vein. DP pulses intact. Heparin gtt initiated. Suspect new clots due to prolonged sitting during fishing trip 2 weeks ago. Diet: heart healthy GI Prophylaxis: not indicated DVT Prophylaxis: heparin drip Lines: peripheral Code Status: DNR DS: Summary Hospital Course Reason for hospitalization: Pulmonary embolism, DVT Hospital Course: 88-year-old gentleman with a past medical history of melanoma, chronic lymphedema in [facility], CHF, diabetes, HTN, and scrotal abscess (10/2023). He had had CT imaging earlier this week per his oncologist and was found to have bilateral pulmonary embolism in the lower lobes and left upper lobe. Venous Dopplers were performed and found acute DVT in the right common femoral vein, profunda femoral vein. Patient was initially placed on heparin drip in the ER and admitted for observation. Echo was performed. Patient did not have hemodynamic instability so he was transitioned to Eliquis. He was discharged home in stable condition with follow-up scheduled with his primary care provider. Time Spent with Patient Time attestation: Total time sp
== END 2024-02-01 15:46 | disposition home or self-care (01) ==
LOC: ANHED 16:53 → ANH2MED 18:34
PROVIDERS: Student in an Organized Health Care Education/Training Program; Admitting Provider Family Medicine; Emergency Provider Emergency Medicine; Visit Provider Family Medicine
DX: I26.94 Multiple subsegmental thrombotic pulmonary emboli without acute cor pulmonale (principal); I82.411 Acute embolism and thrombosis of right femoral vein; I11.0 Hypertensive heart disease with heart failure; I50.9 Heart failure, unspecified; E11.9 Type 2 diabetes mellitus without complications; Z87.891 Personal history of nicotine dependence; Z85.820 Personal history of malignant melanoma of skin; Z79.84 Long term (current) use of oral hypoglycemic drugs
CPT/HCPCS: 36415; 71275; 80053; 82948; 85025; 85610; 85730; 93970; 96365; 96366; 96375; 99291; A9270; C8929; G0378; J1644; J1815; Q9957; Q9967